=== PATIENT | female | born 1965 | race African-American/Black ===

== ENCOUNTER 2017-07-19 11:24 | Inpatient (IN) | payer OTHER ==
[2017-07-19 11:49] VITALS: BMI 22.8
--- NOTE | 2017-07-19 14:09 | HP ---
COWS - Scale Resting Pulse: 0= [place] 80 or Below Sweatin= Chills/Flushing Restless Observation: 1= Difficult to Sit Still Pupil Size: 1= Pupils >than Normal Bone or Joint Aches: 2= Severe Diffuse Aches Runny Nose/ Eye Tearin= Nasal Congestion GI Upset > 30mins: 1= Stomach Cramp Tremor Observation: 1= Tremor [place], Not Seen Yawning Observation: 1= 1-2x During Session Anxiety or Irritability: 2=Irritable/Anxious Goose Flesh Skin: 0=Smooth Skin COWS Score: 11 CIWA Score - CIWA Score Nausea/Vomitin-Mild Nausea/No Vomiting Muscle Tremors: 1-None Visible, but [place] Anxiety: 3 Agitation: 1-Slight > Activity Paroxysmal Sweats: 1-Minimal Palms Moist Orientation: 0-Oriented Tacttile Disturbances: 2-Mild Itch/Numbness/Burn Auditory Disturbances: 1-Very Mild Visual Disturbances: 0-None Headache: 2-Mild CIWA-Ar Total Score: 12 Admission [facility] Chief Complaint: ETOH/Heroin Withdrawal symptoms. Allergies/Adverse Reactions: Allergies Allergy/AdvReac Type Severity Reaction Status Date / Time Penicillins Allergy Severe Hives Verified 07/19/17 12:20 History of Present Illness: Patient presents with ETOH/Heroin withdrawal symptoms. Patients started drinking and using heroin at age 16-22. Last drink and use of heroin this morning. Drinks up to 9 cans of beer daily and sniffs 1-2 bags of heroin 4-5 days per week. Denies having seizures from ETOH use/withdrawal. Has history of Depression, Bipolar disorder, asthma, internal defibrillator, HTN and angina. Denies SI/HI and suicide attempts. Patient states last detox attempt was one month ago at [facility]. ISTOP checked. Reference number [id number]. Exam Limitations: No Limitations - Ebola screening Have you traveled outside of the country in the last 21 days: No (N) Have you had contact with anyone from an Ebola affected area: No Have you been sick,other than usual withdrawal symptoms: No Do you have a fever: No - Review of Systems Constitutional: Chills, Night Sweats, Changes in sleep, Unexplained wgt Loss EENT: reports: Nose Congestion Respiratory: reports: No Symptoms reported Cardiac: reports: No Symptoms Reported GI: reports: Diarrhea, Nausea, Poor Fluid Intake, Abdominal cramping : reports: No Symptoms Reported Musculoskeletal: reports: Back Pain, Muscle Pain Integumentary: reports: Sweating Neuro: reports: Headache, Tremors Endocrine: reports: Unexplained Weight Loss Hematology: reports: Anemia Psychiatric: reports: Orientated x3, Anxious, Depressed Patient History - Patient Medical History Hx Anemia: Yes (WAS ON FESOL IN THE PAST) Hx Asthma: Yes Hx Chronic Obstructive Pulmonary Disease (COPD): No Hx Cancer: No Hx Cardiac Disorders: Yes (h/o heart attack in 2009) Hx Congestive Heart Failure: Yes Hx Hypertension: Yes Hx Hypercholesterolemia: No Hx Pacemaker: Yes (ICD in jostin 2009,2013) HX Cerebrovascular Accident: No Hx Seizures: No Hx Dementia: No Hx Diabetes: No Hx Gastrointestinal Disorders: No Hx Liver Disease: No Hx Genitourinary Disorders: No Hx Sexually Transmitted Disorders: No Hx Renal Disease (ESRD): No Hx Thyroid Disease: No Hx Human Immunodeficiency Virus (HIV): No Hx Hepatitis C: No Hx Depression: Yes Hx Suicide Attempt: No Hx Bipolar Disorder: Yes (DEPAKOTE/RISPERDAL) Hx Schizophrenia: No - Patient Surgical History Past Surgical History: Yes Hx Neurologic Surgery: No Hx Cataract Extraction: No Hx Cardiac Surgery: Yes (ICD 2009 and 2013) Hx Lung Surgery: No Hx Breast Surgery: No Hx Breast Biopsy: No Hx Abdominal Surgery: No Hx Appendectomy: No Hx Cholecystectomy: No Hx Genitourinary Surgery: No Hx Section: Yes (X 1 1991) Hx Orthopedic Surgery: No Anesthesia Reaction: No - PPD History Previous Implant?: Yes Documented Results: Negative w/proof Date: 12/28/14 Results: 0 mm PPD to be Administered?: Yes - Reproductive History Last Menstrual Period: 04/13/15 Patient : No - Smoking Cessation Smoking history: Current every day smoker Have you smoked in the past 12 months: Yes Aproximately how many cigarettes per day: 8 Cigars Per Day: 0 Hx Chewing Tobacco Use: No Initiated information on smoking cessation: Yes 'Breaking Loose' booklet given: 07/19/17 - Substance & Tx. History Hx Alcohol Use: Yes Hx Substance Use: Yes Substance Use Type: Alcohol, Heroin Hx Substance Use Treatment: Yes - Substances Abused Heroin Route: Inhalation Frequency: 3-6 times per week Amount used: 1-2 BAGS WHEN USED Age of first use: 18 Date of Last Use: 07/18/17 Alcohol Route: Oral Frequency: 3-6 times per week Amount used: 9 CANS OF BEER, 1 PINT OF VODKA Age of first use: 21 Date of Last Use: 07/19/17 Family Disease History - Family Disease History Family Disease History: Heart Disease: Father (ASTHMA, OF HEART DISEASE), Respiratory: Father, Other: Brother (ALCOHOLIC) Admission Physical Exam [facility] - Vital Signs Vital Signs: Vital Signs - 24 hr 07/19/17 11:45 Temperature 96.8 F L Pulse Rate 55 L Respiratory 16 Rate Blood Pressure 165/100 - Physical General Appearance: Yes: Disheveled, Tremorous, Sweating, Anxious HEENTM: Yes: EOMI, Hearing grossly Normal, Normal Voice, HODA, Pharynx Normal, Nasal Congestion Respiratory: Yes: Within Normal Limits, Chest Non-Tender, Lungs Clear, Normal Breath Sounds, No Respiratory Distress, No Accessory Muscle Use Neck: Yes: Within Normal Limits, No masses,lesions,Nodules, Supple Breast: Yes: Breast Exam Deferred Cardiology: Yes: Regular Rhythm, Regular Rate, S1, S2 Abdominal: Yes: Normal Bowel Sounds, Non Tender, Flat, Soft Genitourinary: Yes: Within Normal Limits Back: Yes: Normal Inspection, Muscle Spasm Musculoskeletal: Yes: full range of Motion, Gait Steady, Back pain, Muscle Pain Extremities: Yes: Normal Inspection, Normal Range of Motion, Tremors Neurological: Yes: field research associate II-XII NML intact, Fully Oriented, Alert, Motor Strength 5/5, Normal Response, Depressed Affect Integumentary: Yes: Normal Color, Dry (dry skin on feet), Warm, Moist Cleared for Admission [facility] - Detox or Rehab [facility] Level of Care: Medically Managed Detox Regimen/Protocol: Methadone/Librium [facility] Breath Alcohol Content Breath Alcohol Content: 0 Urine Pregancy Test - Result Urine Test Results: Negative- NO Line Present Urine Drug Screen - Results Drug Screen Negative: Yes Urine Drug Screen Results: BZO-Benzodiazepines
[2017-07-19] MEDS ORDERED: hydrOXYzine PAMOATE 50 MG CAPSULE (FP) PO PRN (14:20)
[2017-07-19] MEDS ORDERED: guaiFENesin/D-METHORPHAN HB 10 ML UNIT-DOSE CUPS PO PRN (14:20)
[2017-07-19] MEDS ORDERED: MENTHOL/PHENOL 1 EACH UD MM PRN (14:20)
[2017-07-19] MEDS ORDERED: LOPERAMIDE HCL 2 MG CAPSULE PO PRN (14:20)
[2017-07-19] MEDS ORDERED: ACETAMINOPHEN 325 MG TABLET (FP) PO PRN (14:20)
[2017-07-19] MEDS ORDERED: P-EPHED 60MG/TRIPROLIDI 2.5MG TABLET PO PRN (14:20)
[2017-07-19] MEDS ORDERED: IBUPROFEN 400 MG TABLET (FP) PO PRN (14:20)
[2017-07-19] MEDS ORDERED: MAGNESIUM CITRATE 300 ML BOTTLE PO PRN (14:20)
[2017-07-19] MEDS ORDERED: MAG HYDROX/AL HYDROX/SIMETH 30 ML UNIT-DOSE CUP PO PRN (14:20)
[2017-07-19] MEDS ORDERED: MAGNESIUM HYDROX 2400MG/30ML ORAL SUSPENSION 30 ML CUP PO PRN (14:20)
[2017-07-19] MEDS ORDERED: NITROGLYCERIN SUBLINGUAL 1/150 0.4 MG TAB SL PRN (14:22)
[2017-07-19] MEDS ORDERED: chlordiazePOXIDE HCL 25 MG CAPSULE PO PRN (14:24)
[2017-07-19] MEDS ORDERED: ALBUTEROL SO4 18 GM HFA INHALER IH PRN (14:25)
[2017-07-19] MEDS ORDERED: chlordiazePOXIDE HCL 25 MG CAPSULE PO ONE (15:30)
[2017-07-19] MEDS ORDERED: METHADONE HCL 10 MG TABLET (FOR DETOX USE ONLY) PO ONE ×2 (15:35→23:00)
[2017-07-19] MEDS: chlordiazePOXIDE HCL 25 MG CAPSULE PO SCH ×2 (17:30→22:20)
[2017-07-19] MEDS ORDERED: cloNIDine HCL 0.1 MG TABLET PO ONE (17:57)
[2017-07-19] MEDS ORDERED: MELATONIN 5 MG TABLETS PO PRN (22:00)
[2017-07-19] MEDS: THIAMINE HCL 100 MG TABLET (FP) PO SCH (22:20)
[2017-07-20] MEDS: chlordiazePOXIDE HCL 25 MG CAPSULE PO SCH ×4 (05:48→22:47)
[2017-07-20] MEDS: NICOTINE POLACRILEX 2 MG GUM BC PRN ×3 (06:17→17:25)
[2017-07-20] MEDS ORDERED: METHADONE HCL 10 MG TABLET (FOR DETOX USE ONLY) PO SCH (10:00)
[2017-07-20] MEDS: PRENATAL VITAMINS W/ FOLIC ACID TABLET (FP) PO SCH (10:17)
[2017-07-20] MEDS: HYDROCHLOROTHIAZIDE 25 MG TABLET (FP) PO SCH (10:17)
[2017-07-20] MEDS: LISINOPRIL 5 MG TABLET (FP) PO SCH (10:17)
[2017-07-20] MEDS: amLODIPine BESYLATE 2.5 MG TABLET (FP) PO SCH (10:17)
[2017-07-20] MEDS: NICOTINE 21 MG/24 HOURS TOPICAL PATCH TD SCH (10:20)
[2017-07-20 10:40] LABS: HEMATOCRIT 33.3 % (32.4-45.2); HEMOGLOBIN 11.1 GM/dL (10.7-15.3); MCH 32.4 pg (25.7-33.7); MCHC 33.3 g/dl (32.0-36.0); MEAN CELL VOLUME 97.3 fl (80-96); MEAN PLT VOLUME 9.4 fl (7.5-11.1); PLATELET COUNT 155 K/MM3 (134-434); RBC 3.42 M/mm3 (3.60-5.2); WHITE BLOOD COUNT 4.4 K/mm3 (4.0-10.0)
[2017-07-20 10:44] LABS: URINE APPEARANCE CLEAR; URINE BILIRUBIN NEGATIVE (<2.0 mg/dL); URINE COLOR STRAW; URINE GLUCOSE (UA) NEGATIVE (NEGATIVE); URINE KETONE NEGATIVE (NEGATIVE); URINE LEUK ESTERASE NEGATIVE (NEGATIVE); URINE NITRITE NEGATIVE (NEGATIVE); URINE PROTEIN NEGATIVE (NEGATIVE); URINE UROBILINOGEN NEGATIVE mg/dL (0.2-1.0)
[2017-07-20 10:55] LABS: ALBUMIN 3.4 g/dl (3.4-5.0); CHLORIDE 110 mmol/L (98-107); POTASSIUM 4.3 mmol/L (3.5-5.1); SODIUM 143 mmol/L (136-145)
[2017-07-20 11:23] LABS: ALK PHOS 117 U/L (45-117); ANION GAP 9 (8-16); BILIRUBIN,TOTAL 0.5 mg/dL (0.2-1.0); BLOOD UREA NITROGEN 35 mg/dL (7-18); CALCIUM 8.9 mg/dL (8.5-10.1); CO2 24 mmol/L (21-32); CREATININE 1.3 mg/dL (0.55-1.02); GLUCOSE,RANDOM 85 mg/dL (74-106); SGOT/AST 33 U/L (15-37); SGPT/ALT 33 U/L (12-78); TOT PROT 6.7 g/dl (6.4-8.2)
--- NOTE | 2017-07-20 15:20 | CONSULT ---
[facility] Psychiatric Consult - Data Date of interview: 07/20/17 Admission source: [facility] Identifying data: Readmission to [facility] for this 51 y/o AA female seeking detox treatment on for alcohol and opioid dependence.Patient is single, a mother of five,homeless,unemployed and supported on SSI benefits. Substance Abuse History: Discussed with patient.Ms Pedraza confirmed continuous use of heroin,alcohol and occasional exposure to crack/cocaine.Details in current [facility] report : Smoking history: Current every day smoker. Have you smoked in the past 12 months: Yes. Aproximately how many cigarettes per day: 8. Cigars Per Day: 0. Hx Chewing Tobacco Use: No. Initiated information on smoking cessation: Yes. 'Breaking Loose' booklet given: 07/19/17. - Substance & Tx. History. Hx Alcohol Use: Yes. Hx Substance Use: Yes. Substance Use Type : Alcohol, Heroin. Hx Substance Use Treatment: Yes. - Substances Abused. Heroin. Route: Inhalation. Frequency: 3-6 times per week. Amount used: 1-2 BAGS WHEN USED. Age of first use: 18. Date of Last Use: 07/18/17. Alcohol. Route: Oral. Frequency: 3-6 times per week. Amount used: 9 CANS OF BEER, 1 PINT OF VODKA. Age of first use: 21. Date of Last Use: 07/19/17 Medical History: Significant for a history of myocardial infarction (pacemaker in place),coronary artery disease,angina,hypertension,anemia,bronchial asthma, congestive heart failure and one section. Psychiatric History: History of multiple psychiatric hospitalizations ([facility]) since 1999.Patient reports the diagnosis of Schizophrenia (revised for Bipolar Disorder).Prescribed depakote 250 mg bid + risperdal 1 mg/hs (since 2008 during incarceration).Ms Pedraza amits to chronic non-adherence to psychiatric OPD care + psychotropic medications.NOT taken for " a little over one month " , according to patient's own account.No history of suicide attempts. Physical/Sexual Abuse/Trauma History: Patient denies. Additional Comment: Urine Drug Screen Results: BZO-Benzodiazepines.Noted. Mental Status Exam - Mental Status Exam Alert and Oriented to: Time, Place, Person Cognitive Function: Good Patient Appearance: Well Groomed Mood: Nervous, Withdrawn, Hopeful Affect: Mood Congruent Patient Behavior: Fatigued, Appropriate, Cooperative Speech Pattern: Clear, Appropriate Voice Loudness: Normal Thought Process: Goal Oriented Thought Disorder: Not Present Hallucinations: Denies Suicidal Ideation: Denies Homicidal Ideation: Denies Insight/Judgement: Poor Sleep: Well Appetite: Good Muscle strength/Tone: Normal Gait/Station: Normal Psychiatric Findings - Problem List ([place] 1, 2,3) (1) Alcohol dependence with uncomplicated withdrawal Current Visit: Yes Status: Acute (2) Opioid dependence with withdrawal Current Visit: Yes Status: Acute (3) Nicotine dependence Current Visit: Yes Status: Chronic Qualifiers: Nicotine product type: cigarettes (4) Substance induced mood disorder Current Visit: Yes Status: Acute (5) Schizoaffective disorder Current Visit: Yes Status: Chronic - Initial Treatment Plan Initial Treatment Plan: Psychoeducation.Detoxification in progress.Patient is receptive to teaching : she agrees to resume depakote at the dose of 250 mg po bid + risperdal 1 mg po hs.Ordered.Side effects/benefits of both drugs are discussed with the patient.Ms Pedraza is made aware of the risk of liver dysfunction,hair loss,blood dyscrasias,polycystic ovary syndrome,sedation, dystonias,akathisia,dyskinesias,neuroleptic malignant syndrome and cardiovascular adverse events.Patient endorses a history of good tolerability to these medications + favorable therapeutic response in the past.Consent ( verbal) given.Observation.Labs are revisited : normal LFTS.Valproic acid level : pending.Will follow.
--- NOTE | 2017-07-20 20:58 | PN ---
[facility] CIWA - CIWA Score Nausea/Vomitin Muscle Tremors: 3 Anxiety: 2 Agitation: 3 Paroxysmal Sweats: 3 Orientation: 0-Oriented Tacttile Disturbances: 0-None Auditory Disturbances: 0-None Visual Disturbances: 0-None Headache: 0-None Present CIWA-Ar Total Score: 14 [facility] COWS - Scale Resting Pulse: 0= [place] 80 or Below Sweatin=Flushed/Facial Moisture Restless Observation: 1= Difficult to Sit Still Pupil Size: 0= Normal to Room Light Bone or Joint Aches: 0= None Runny Nose/ Eye Tearin= Nasal Congestion GI Upset > 30mins: 0= None Tremor Observation of Outstretched Hands: 2= Slight Tremor Visible Yawning Observation: 0= None Anxiety or Irritability: 2=Irritable/Anxious Goose Flesh Skin: 0=Smooth Skin COWS Score: 8 [facility] Progress Note (SOAP) Subjective: Sleep disturbance Shakes sweats Objective: 07/20/17 20:55 A & O x 3, anxious Ambulating steadily on unit Denies chest pains/palpitations nor discomfort Laboratory Last Values WBC 4.4 K/mm3 (4.0-10.0) 07/20/17 07:50 RBC 3.42 M/mm3 (3.60-5.2) L 07/20/17 07:50 Hgb 11.1 GM/dL (10.7-15.3) 07/20/17 07:50 Hct 33.3 % (32.4-45.2) 07/20/17 07:50 MCV 97.3 fl (80-96) H 07/20/17 07:50 MCH 32.4 pg (25.7-33.7) 07/20/17 07:50 MCHC 33.3 g/dl (32.0-36.0) 07/20/17 07:50 RDW 14.0 % (11.6-15.6) 07/20/17 07:50 Plt Count 155 K/MM3 (134-434) D 07/20/17 07:50 MPV 9.4 fl (7.5-11.1) 07/20/17 07:50 Sodium 143 mmol/L (136-145) 07/20/17 07:50 Potassium 4.3 mmol/L (3.5-5.1) 07/20/17 07:50 Chloride 110 mmol/L (98-107) H 07/20/17 07:50 Carbon Dioxide 24 mmol/L (21-32) 07/20/17 07:50 Anion Gap 9 (8-16) 07/20/17 07:50 BUN 35 mg/dL (7-18) H 07/20/17 07:50 Creatinine 1.3 mg/dL (0.55-1.02) H 07/20/17 07:50 Creat Clearance w eGFR 43.54 (>60) 07/20/17 07:50 Random Glucose 85 mg/dL (74-106) 07/20/17 07:50 Calcium 8.9 mg/dL (8.5-10.1) 07/20/17 07:50 Total Bilirubin 0.5 mg/dL (0.2-1.0) D 07/20/17 07:50 AST 33 U/L (15-37) 07/20/17 07:50 ALT 33 U/L (12-78) 07/20/17 07:50 Alkaline Phosphatase 117 U/L (45-117) 07/20/17 07:50 Total Protein 6.7 g/dl (6.4-8.2) 07/20/17 07:50 Albumin 3.4 g/dl (3.4-5.0) 07/20/17 07:50 Urine Color Straw 07/20/17 07:50 Urine Appearance Clear 07/20/17 07:50 Urine pH 6.0 (5.0-8.0) 07/20/17 07:50 Ur Specific [place] 1.013 (1.001-1.035) 07/20/17 07:50 Urine Protein Negative (NEGATIVE) 07/20/17 07:50 Urine Glucose (UA) Negative (NEGATIVE) 07/20/17 07:50 Urine Ketones Negative (NEGATIVE) 07/20/17 07:50 Urine Blood Negative (NEGATIVE) 07/20/17 07:50 Urine Nitrite Negative (NEGATIVE) 07/20/17 07:50 Urine Bilirubin Negative (<2.0 mg/dL) 07/20/17 07:50 Urine Urobilinogen Negative mg/dL (0.2-1.0) 07/20/17 07:50 Ur Leukocyte Esterase Negative (NEGATIVE) 07/20/17 07:50 RPR Titer Nonreactive (NONREACTIVE) 07/20/17 07:50 HIV 1&2 Antibody Screen Negative 07/20/17 07:50 HIV P24 Antigen Negative 07/20/17 07:50 labs noted Assessment: 07/20/17 20:57 Withdrawal sx Plan: continue detox
[2017-07-20] MEDS: THIAMINE HCL 100 MG TABLET (FP) PO SCH (22:47)
[2017-07-20] MEDS: DIVALPROEX SODIUM 250 MG TABLET E.C. PO SCH (22:48)
[2017-07-20] MEDS: risperiDONE 1 MG TABLET (FP) PO SCH (22:48)
[2017-07-21] MEDS: chlordiazePOXIDE HCL 25 MG CAPSULE PO SCH ×2 (05:53→10:35)
[2017-07-21] MEDS: NICOTINE POLACRILEX 2 MG GUM BC PRN ×3 (06:18→16:34)
[2017-07-21] MEDS: HYDROCHLOROTHIAZIDE 25 MG TABLET (FP) PO SCH (10:34)
[2017-07-21] MEDS: DIVALPROEX SODIUM 250 MG TABLET E.C. PO SCH ×2 (10:34→22:28)
[2017-07-21] MEDS: METHADONE HCL 5 MG TABLET (FOR DETOX USE ONLY) PO SCH (10:34)
[2017-07-21] MEDS: PRENATAL VITAMINS W/ FOLIC ACID TABLET (FP) PO SCH (10:35)
[2017-07-21] MEDS: LISINOPRIL 5 MG TABLET (FP) PO SCH (10:35)
[2017-07-21] MEDS: amLODIPine BESYLATE 2.5 MG TABLET (FP) PO SCH (10:35)
[2017-07-21] MEDS: ASPIRIN COATED 81 MG TABLET.EC PO SCH (10:35)
[2017-07-21] MEDS: NICOTINE 21 MG/24 HOURS TOPICAL PATCH TD SCH (10:35)
--- NOTE | 2017-07-21 12:19 | PN ---
[facility] CIWA - CIWA Score Nausea/Vomitin-No Nausea/No Vomiting Muscle Tremors: 3 Anxiety: 3 Agitation: 3 Paroxysmal Sweats: 2 Orientation: 0-Oriented Tacttile Disturbances: 0-None Auditory Disturbances: 0-None Visual Disturbances: 0-None Headache: 0-None Present CIWA-Ar Total Score: 11 S COWS - Scale Resting Pulse: 0= [place] 80 or Below Sweatin= Chills/Flushing Restless Observation: 0= Sits Still Pupil Size: 0= Normal to Room Light Bone or Joint Aches: 1= Mild Discomfort Runny Nose/ Eye Tearin= Nasal Congestion GI Upset > 30mins: 0= None Tremor Observation of Outstretched Hands: 2= Slight Tremor Visible Yawning Observation: 2= >3x During Session Anxiety or Irritability: 1=Feels Anxious/Irritable Goose Flesh Skin: 0=Smooth Skin COWS Score: 8 S Progress Note (SOAP) Subjective: tired sweats body aches interrupted sleep Objective: 07/21/17 12:19 Vital Signs Temperature 98.2 F 07/21/17 10:25 Pulse Rate 78 07/21/17 10:25 Respiratory Rate 18 07/21/17 10:25 Blood Pressure 132/89 07/21/17 10:25 O2 Sat by Pulse Oximetry (%) Laboratory Tests 07/20/17 07/20/17 07/20/17 07:50 07:50 07:50 WBC 4.4 RBC 3.42 L Hgb 11.1 Hct 33.3 MCV 97.3 H MCH 32.4 MCHC 33.3 RDW 14.0 Plt Count 155 D MPV 9.4 Sodium 143 Potassium 4.3 Chloride 110 H Carbon Dioxide 24 Anion Gap 9 BUN 35 H Creatinine 1.3 H Creat Clearance w eGFR 43.54 Random Glucose 85 Calcium 8.9 Total Bilirubin 0.5 D AST 33 ALT 33 Alkaline Phosphatase 117 Total Protein 6.7 Albumin 3.4 Urine Color Urine Appearance Urine pH Ur Specific [place] Urine Protein Urine Glucose (UA) Urine Ketones Urine Blood Urine Nitrite Urine Bilirubin Urine Urobilinogen Ur Leukocyte Esterase RPR Titer HIV 1&2 Antibody Screen Negative HIV P24 Antigen Negative 07/20/17 07/20/17 07:50 07:50 WBC RBC Hgb Hct MCV MCH MCHC RDW Plt Count MPV Sodium Potassium Chloride Carbon Dioxide Anion Gap BUN Creatinine Creat Clearance w eGFR Random Glucose Calcium Total Bilirubin AST ALT Alkaline Phosphatase Total Protein Albumin Urine Color Straw Urine Appearance Clear Urine pH 6.0 Ur Specific [place] 1.013 Urine Protein Negative Urine Glucose (UA) Negative Urine Ketones Negative Urine Blood Negative Urine Nitrite Negative Urine Bilirubin Negative Urine Urobilinogen Negative Ur Leukocyte Esterase Negative RPR Titer Nonreactive HIV 1&2 Antibody Screen HIV P24 Antigen aaox3 ambulating no acute distress Assessment: 07/21/17 12:19 withdrawal sx Plan: continue detox increase fluids
[2017-07-21] MEDS: chlordiazePOXIDE 5 MG CAPSULE PO SCH ×2 (16:34→22:27)
[2017-07-21] MEDS: risperiDONE 1 MG TABLET (FP) PO SCH (22:27)
[2017-07-21] MEDS: THIAMINE HCL 100 MG TABLET (FP) PO SCH (22:28)
[2017-07-22] MEDS: chlordiazePOXIDE 5 MG CAPSULE PO SCH ×2 (05:46→10:38)
[2017-07-22] MEDS: DIVALPROEX SODIUM 250 MG TABLET E.C. PO SCH ×2 (10:37→22:28)
[2017-07-22] MEDS: HYDROCHLOROTHIAZIDE 25 MG TABLET (FP) PO SCH (10:37)
[2017-07-22] MEDS: ASPIRIN COATED 81 MG TABLET.EC PO SCH (10:37)
[2017-07-22] MEDS: PRENATAL VITAMINS W/ FOLIC ACID TABLET (FP) PO SCH (10:37)
[2017-07-22] MEDS: LISINOPRIL 5 MG TABLET (FP) PO SCH (10:37)
[2017-07-22] MEDS: METHADONE HCL 5 MG TABLET (FOR DETOX USE ONLY) PO SCH (10:38)
[2017-07-22] MEDS: NICOTINE 21 MG/24 HOURS TOPICAL PATCH TD SCH (10:40)
[2017-07-22] MEDS: NICOTINE POLACRILEX 2 MG GUM BC PRN (10:40)
--- NOTE | 2017-07-22 11:39 | PN ---
S Progress Note (SOAP) Subjective: joint pain body ache sweat tremor slept better at night patient stated that she had kidney problem "for a while" has hypertension x 3 years primary care physician at [place] last visit "months" ago Objective: 07/22/17 11:37 Vital Signs Temperature 97.7 F 07/22/17 09:43 Pulse Rate 79 07/22/17 09:43 Respiratory Rate 18 07/22/17 09:43 Blood Pressure 153/95 07/22/17 09:43 O2 Sat by Pulse Oximetry (%) Laboratory Last Values WBC 4.4 K/mm3 (4.0-10.0) 07/20/17 07:50 RBC 3.42 M/mm3 (3.60-5.2) L 07/20/17 07:50 Hgb 11.1 GM/dL (10.7-15.3) 07/20/17 07:50 Hct 33.3 % (32.4-45.2) 07/20/17 07:50 MCV 97.3 fl (80-96) H 07/20/17 07:50 MCH 32.4 pg (25.7-33.7) 07/20/17 07:50 MCHC 33.3 g/dl (32.0-36.0) 07/20/17 07:50 RDW 14.0 % (11.6-15.6) 07/20/17 07:50 Plt Count 155 K/MM3 (134-434) D 07/20/17 07:50 MPV 9.4 fl (7.5-11.1) 07/20/17 07:50 Sodium 143 mmol/L (136-145) 07/20/17 07:50 Potassium 4.3 mmol/L (3.5-5.1) 07/20/17 07:50 Chloride 110 mmol/L (98-107) H 07/20/17 07:50 Carbon Dioxide 24 mmol/L (21-32) 07/20/17 07:50 Anion Gap 9 (8-16) 07/20/17 07:50 BUN 35 mg/dL (7-18) H 07/20/17 07:50 Creatinine 1.3 mg/dL (0.55-1.02) H 07/20/17 07:50 Creat Clearance w eGFR 43.54 (>60) 07/20/17 07:50 Random Glucose 85 mg/dL (74-106) 07/20/17 07:50 Calcium 8.9 mg/dL (8.5-10.1) 07/20/17 07:50 Total Bilirubin 0.5 mg/dL (0.2-1.0) D 07/20/17 07:50 AST 33 U/L (15-37) 07/20/17 07:50 ALT 33 U/L (12-78) 07/20/17 07:50 Alkaline Phosphatase 117 U/L (45-117) 07/20/17 07:50 Total Protein 6.7 g/dl (6.4-8.2) 07/20/17 07:50 Albumin 3.4 g/dl (3.4-5.0) 07/20/17 07:50 Urine Color Straw 07/20/17 07:50 Urine Appearance Clear 07/20/17 07:50 Urine pH 6.0 (5.0-8.0) 07/20/17 07:50 Ur Specific [place] 1.013 (1.001-1.035) 07/20/17 07:50 Urine Protein Negative (NEGATIVE) 07/20/17 07:50 Urine Glucose (UA) Negative (NEGATIVE) 07/20/17 07:50 Urine Ketones Negative (NEGATIVE) 07/20/17 07:50 Urine Blood Negative (NEGATIVE) 07/20/17 07:50 Urine Nitrite Negative (NEGATIVE) 07/20/17 07:50 Urine Bilirubin Negative (<2.0 mg/dL) 07/20/17 07:50 Urine Urobilinogen Negative mg/dL (0.2-1.0) 07/20/17 07:50 Ur Leukocyte Esterase Negative (NEGATIVE) 07/20/17 07:50 RPR Titer Nonreactive (NONREACTIVE) 07/20/17 07:50 HIV 1&2 Antibody Screen Negative 07/20/17 07:50 HIV P24 Antigen Negative 07/20/17 07:50 lab noted gfr 43 07/22/17 11:54 renal insufficient Assessment: 07/22/17 11:38 withdrawal sx 07/22/17 11:54 renal insufficient Plan: continue detox strong recommend that the patient reengage with primary care physician and nephrology
[2017-07-22] MEDS: amLODIPine BESYLATE 2.5 MG TABLET (FP) PO SCH (12:04)
[2017-07-22] MEDS ORDERED: amLODIPine BESYLATE 5 MG TABLET (FP) PO SCH (12:11)
[2017-07-22] MEDS ORDERED: amLODIPine BESYLATE 5 MG TABLET (FP) PO ONE (13:45)
[2017-07-22] MEDS: chlordiazePOXIDE HCL 10 MG CAPSULE PO SCH ×2 (17:20→22:28)
[2017-07-22] MEDS: THIAMINE HCL 100 MG TABLET (FP) PO SCH (22:28)
[2017-07-22] MEDS: risperiDONE 1 MG TABLET (FP) PO SCH (22:28)
--- NOTE | 2017-07-23 00:52 | EKG ---
Test Reason : Blood Pressure : / mmHG Vent. Rate : 059 BPM Atrial Rate : 059 BPM P-R Int : 154 ms QRS Dur : 086 ms QT Int : 442 ms P-R-T Axes : 062 043 239 degrees QTc Int : 437 ms SINUS BRADYCARDIA MODERATE VOLTAGE CRITERIA FOR LVH, MAY BE NORMAL VARIANT ANTEROSEPTAL INFARCT , AGE UNDETERMINED T WAVE ABNORMALITY, CONSIDER LATERAL ISCHEMIA ABNORMAL ECG NO PREVIOUS ECGS AVAILABLE Confirmed by LIANA CEBALLOS, THOM ([id number]) on 07/23/2017 12:52:25 AM Referred By: Confirmed By:THOM GAINES MD
[2017-07-23] MEDS: chlordiazePOXIDE HCL 10 MG CAPSULE PO SCH ×2 (06:28→10:22)
[2017-07-23] MEDS ORDERED: cloNIDine HCL 0.1 MG TABLET PO ONE (07:39)
--- NOTE | 2017-07-23 07:41 | PN ---
[facility] Progress Note Note: bp 159/107,withdrawal symptom,clonidine 0.1 mg po now
[2017-07-23] MEDS ORDERED: amLODIPine BESYLATE 5 MG TABLET (FP) PO SCH (10:00)
[2017-07-23] MEDS ORDERED: amLODIPine BESYLATE 2.5 MG TABLET (FP) PO SCH (10:00)
[2017-07-23] MEDS ORDERED: METHADONE HCL 10 MG TABLET (FOR DETOX USE ONLY) PO SCH (10:00)
[2017-07-23] MEDS: HYDROCHLOROTHIAZIDE 25 MG TABLET (FP) PO SCH (10:21)
[2017-07-23] MEDS: LISINOPRIL 5 MG TABLET (FP) PO SCH (10:21)
[2017-07-23] MEDS: ASPIRIN COATED 81 MG TABLET.EC PO SCH (10:21)
[2017-07-23] MEDS: PRENATAL VITAMINS W/ FOLIC ACID TABLET (FP) PO SCH (10:22)
[2017-07-23] MEDS: DIVALPROEX SODIUM 250 MG TABLET E.C. PO SCH ×2 (10:22→22:17)
[2017-07-23] MEDS: NICOTINE 21 MG/24 HOURS TOPICAL PATCH TD SCH (10:25)
--- NOTE | 2017-07-23 11:37 | PN ---
[facility] Progress Note (SOAP) Subjective: less alcohol withdrawal sx disoriented to place and time slow responses to questions Objective: 07/23/17 11:35 Vital Signs Temperature 96.4 F L 07/23/17 09:21 Pulse Rate 77 07/23/17 09:21 Respiratory Rate 18 07/23/17 09:21 Blood Pressure 145/93 07/23/17 09:21 O2 Sat by Pulse Oximetry (%) Laboratory Last Values WBC 4.4 K/mm3 (4.0-10.0) 07/20/17 07:50 RBC 3.42 M/mm3 (3.60-5.2) L 07/20/17 07:50 Hgb 11.1 GM/dL (10.7-15.3) 07/20/17 07:50 Hct 33.3 % (32.4-45.2) 07/20/17 07:50 MCV 97.3 fl (80-96) H 07/20/17 07:50 MCH 32.4 pg (25.7-33.7) 07/20/17 07:50 MCHC 33.3 g/dl (32.0-36.0) 07/20/17 07:50 RDW 14.0 % (11.6-15.6) 07/20/17 07:50 Plt Count 155 K/MM3 (134-434) D 07/20/17 07:50 MPV 9.4 fl (7.5-11.1) 07/20/17 07:50 Sodium 143 mmol/L (136-145) 07/20/17 07:50 Potassium 4.3 mmol/L (3.5-5.1) 07/20/17 07:50 Chloride 110 mmol/L (98-107) H 07/20/17 07:50 Carbon Dioxide 24 mmol/L (21-32) 07/20/17 07:50 Anion Gap 9 (8-16) 07/20/17 07:50 BUN 35 mg/dL (7-18) H 07/20/17 07:50 Creatinine 1.3 mg/dL (0.55-1.02) H 07/20/17 07:50 Creat Clearance w eGFR 43.54 (>60) 07/20/17 07:50 Random Glucose 85 mg/dL (74-106) 07/20/17 07:50 Calcium 8.9 mg/dL (8.5-10.1) 07/20/17 07:50 Total Bilirubin 0.5 mg/dL (0.2-1.0) D 07/20/17 07:50 AST 33 U/L (15-37) 07/20/17 07:50 ALT 33 U/L (12-78) 07/20/17 07:50 Alkaline Phosphatase 117 U/L (45-117) 07/20/17 07:50 Total Protein 6.7 g/dl (6.4-8.2) 07/20/17 07:50 Albumin 3.4 g/dl (3.4-5.0) 07/20/17 07:50 Urine Color Straw 07/20/17 07:50 Urine Appearance Clear 07/20/17 07:50 Urine pH 6.0 (5.0-8.0) 07/20/17 07:50 Ur Specific [place] 1.013 (1.001-1.035) 07/20/17 07:50 Urine Protein Negative (NEGATIVE) 07/20/17 07:50 Urine Glucose (UA) Negative (NEGATIVE) 07/20/17 07:50 Urine Ketones Negative (NEGATIVE) 07/20/17 07:50 Urine Blood Negative (NEGATIVE) 07/20/17 07:50 Urine Nitrite Negative (NEGATIVE) 07/20/17 07:50 Urine Bilirubin Negative (<2.0 mg/dL) 07/20/17 07:50 Urine Urobilinogen Negative mg/dL (0.2-1.0) 07/20/17 07:50 Ur Leukocyte Esterase Negative (NEGATIVE) 07/20/17 07:50 RPR Titer Nonreactive (NONREACTIVE) 07/20/17 07:50 HIV 1&2 Antibody Screen Negative 07/20/17 07:50 HIV P24 Antigen Negative 07/20/17 07:50 lab noted renal insufficient ammonia lever pending Assessment: 07/23/17 11:36 mild alcohol withdrawal sx rule out ammonia induced alter mental staus Plan: medically supervised detox ammonia pending renal insufficient renal diet
[2017-07-23] MEDS ORDERED: LISINOPRIL 5 MG TABLET (FP) PO ONE (12:00)
--- NOTE | 2017-07-23 15:17 | PN ---
[facility] Progress Note Note: AMMONIA LEVEL 51 LACTULOSE QID
[2017-07-23] MEDS: LACTULOSE 20 GM/30 ML UDC (FOR ORAL USE ONLY) PO SCH ×2 (17:32→22:17)
[2017-07-23] MEDS ORDERED: LACTULOSE 20 GM/30 ML UDC (FOR ORAL USE ONLY) PO SCH (18:00)
[2017-07-23] MEDS: NICOTINE POLACRILEX 2 MG GUM BC PRN (18:32)
[2017-07-23] MEDS: THIAMINE HCL 100 MG TABLET (FP) PO SCH (22:17)
[2017-07-23] MEDS: risperiDONE 1 MG TABLET (FP) PO SCH (22:17)
[2017-07-24] MEDS ORDERED: METHADONE HCL 5 MG TABLET (FOR DETOX USE ONLY) PO SCH (06:00)
[2017-07-24 09:20] VITALS: BP 145/95; PULSE 83; TEMP 97.9
[2017-07-24] MEDS ORDERED: LISINOPRIL 10 MG TABLET (FP) PO SCH (10:00)
--- NOTE | 2017-07-24 10:51 | DS ---
[facility] Detox Discharge Summary Admission Date: 07/19/17 Discharge Date: 07/24/17 - History Present History: Alcohol Dependence Additional Comments: 51 years old female admitted 07/19/17 for alcohol withdrawal sx completed alcohol detox regimen tolerate well denies alcohol withdrawal sx patient acknowledged ammonia lever elevation related to alcohol consumption patient agrees to minimize the amount of alcohol drinking and continue lact[facility] as per pharmacist stated patient reported that she is using [facility] lactulose e sent patient agrees to slat pickler the medication lab provided to the patient encourage the patient follow up with community health services provider for renal and liver functioning related health status - Physical Exam Results Vital Signs: Vital Signs Temperature 97.9 F 07/24/17 09:19 Pulse Rate 83 07/24/17 09:19 Respiratory Rate 16 07/24/17 09:19 Blood Pressure 145/95 07/24/17 09:19 O2 Sat by Pulse Oximetry (%) Pertinent Admission Physical Exam Findings: withdrawal sx Vital Signs Temperature 97.9 F 07/24/17 09:19 Pulse Rate 83 07/24/17 09:19 Respiratory Rate 16 07/24/17 09:19 Blood Pressure 145/95 07/24/17 09:19 O2 Sat by Pulse Oximetry (%) Laboratory Last Values WBC 4.4 K/mm3 (4.0-10.0) 07/20/17 07:50 RBC 3.42 M/mm3 (3.60-5.2) L 07/20/17 07:50 Hgb 11.1 GM/dL (10.7-15.3) 07/20/17 07:50 Hct 33.3 % (32.4-45.2) 07/20/17 07:50 MCV 97.3 fl (80-96) H 07/20/17 07:50 MCH 32.4 pg (25.7-33.7) 07/20/17 07:50 MCHC 33.3 g/dl (32.0-36.0) 07/20/17 07:50 RDW 14.0 % (11.6-15.6) 07/20/17 07:50 Plt Count 155 K/MM3 (134-434) D 07/20/17 07:50 MPV 9.4 fl (7.5-11.1) 07/20/17 07:50 Sodium 143 mmol/L (136-145) 07/20/17 07:50 Potassium 4.3 mmol/L (3.5-5.1) 07/20/17 07:50 Chloride 110 mmol/L (98-107) H 07/20/17 07:50 Carbon Dioxide 24 mmol/L (21-32) 07/20/17 07:50 Anion Gap 9 (8-16) 07/20/17 07:50 BUN 35 mg/dL (7-18) H 07/20/17 07:50 Creatinine 1.3 mg/dL (0.55-1.02) H 07/20/17 07:50 Creat Clearance w eGFR 43.54 (>60) 07/20/17 07:50 Random Glucose 85 mg/dL (74-106) 07/20/17 07:50 Calcium 8.9 mg/dL (8.5-10.1) 07/20/17 07:50 Total Bilirubin 0.5 mg/dL (0.2-1.0) D 07/20/17 07:50 AST 33 U/L (15-37) 07/20/17 07:50 ALT 33 U/L (12-78) 07/20/17 07:50 Alkaline Phosphatase 117 U/L (45-117) 07/20/17 07:50 Ammonia 51.12 umol/L (11-32) H 07/23/17 11:15 Total Protein 6.7 g/dl (6.4-8.2) 07/20/17 07:50 Albumin 3.4 g/dl (3.4-5.0) 07/20/17 07:50 Urine Color Straw 07/20/17 07:50 Urine Appearance Clear 07/20/17 07:50 Urine pH 6.0 (5.0-8.0) 07/20/17 07:50 Ur Specific [place] 1.013 (1.001-1.035) 07/20/17 07:50 Urine Protein Negative (NEGATIVE) 07/20/17 07:50 Urine Glucose (UA) Negative (NEGATIVE) 07/20/17 07:50 Urine Ketones Negative (NEGATIVE) 07/20/17 07:50 Urine Blood Negative (NEGATIVE) 07/20/17 07:50 Urine Nitrite Negative (NEGATIVE) 07/20/17 07:50 Urine Bilirubin Negative (<2.0 mg/dL) 07/20/17 07:50 Urine Urobilinogen Negative mg/dL (0.2-1.0) 07/20/17 07:50 Ur Leukocyte Esterase Negative (NEGATIVE) 07/20/17 07:50 RPR Titer Nonreactive (NONREACTIVE) 07/20/17 07:50 HIV 1&2 Antibody Screen Negative 07/20/17 07:50 HIV P24 Antigen Negative 07/20/17 07:50 lab noted patient was aware of renal insufficient x 2 years and fluctuated ammonia level related to alcohol mis used patient completed alcohol detox today and refused to go to [facility] for rehab insists to leave the [facility] today - Treatment Hospital Course: Detox Protocol Followed, Detoxed Safely, Responded well, Discharged Condition Good, Rehab Referral Accepted Patient has Accepted a Rehab Referral to: [facility] - patient refuses to go - Medication Discharge Medications: Ambulatory Orders Risperidone [Risperdal] 1 mg PO HS #30 tablet 03/01/15 Divalproex [Depakote -] 250 mg PO BID 07/19/17 Nitroglycerin Sublingual [Nitrostat -] 0.4 mg SL PRN PRN #30 tab 07/23/17 Risperidone [Risperdal] 1 mg PO HS #30 ml 07/23/17 Lactulose (Oral Use) [Cephulac -] 20 gm PO QID #120 udc 07/24/17 Lactulose (Oral Use) [Cephulac -] 20 gm PO QID #120 udc 07/24/17 - Diagnosis (1) Renal insufficiency Current Visit: Yes Status: Chronic (2) Alcohol dependence with uncomplicated withdrawal Current Visit: Yes Status: Acute (3) Asthma Current Visit: Yes Status: Chronic Qualifiers: Asthma severity: mild Asthma persistence: intermittent Asthma complication type: with status asthmaticus Qualified Code(s): J45.22 - Mild intermittent asthma with status asthmaticus (4) Bipolar II disorder Current Visit: Yes Status: Chronic (5) HTN (hypertension) Current Visit: Yes Status: Chronic Qualifiers: Hypertension type: essential hypertension Qualified Code(s): I10 - Essential (primary) hypertension (6) Nicotine dependence Current Visit: Yes Status: Acute Qualifiers: Nicotine product type: cigarettes Substance use status: in withdrawal Qualified Code(s): F17.213 - Nicotine dependence, cigarettes, with withdrawal - AMA Did Patient Leave Against Medical Advice: No
== END 2017-07-24 10:30 | disposition home or self-care (01) | DRG 773 ==
LOC: YASAS 11:24 → Y6N 15:16
PROVIDERS: ADMIT Surgery; ATTEND Surgery
PROC: HZ2ZZZZ Detoxification Services for Substance Abuse Treatment (ICD-10-PCS; principal; 2017-07-19)
DX: F11.23 Opioid dependence with withdrawal (principal); F10.230 Alcohol dependence with withdrawal, uncomplicated; F17.213 Nicotine dependence, cigarettes, with withdrawal; F31.81 Bipolar II disorder; F25.9 Schizoaffective disorder, unspecified; I10 Essential (primary) hypertension; I25.119 Atherosclerotic heart disease of native coronary artery with unspecified angina pectoris; I25.2 Old myocardial infarction; I50.9 Heart failure, unspecified; D64.9 Anemia, unspecified; J45.22 Mild intermittent asthma with status asthmaticus; N28.9 Disorder of kidney and ureter, unspecified; E72.20 Disorder of urea cycle metabolism, unspecified; R41.82 Altered mental status, unspecified; Z95.810 Presence of automatic (implantable) cardiac defibrillator; Z88.0 Allergy status to penicillin
CPT/HCPCS: 36415; 80053; 80164; 81003; 82140; 85027; 86593; 87389; 93005; 93010; J0735; J2794

== ENCOUNTER 2018-06-27 15:13 | Inpatient (IN) | payer OTHER ==
[2018-06-27 17:19] VITALS: BMI 21.0
--- NOTE | 2018-06-27 23:17 | HP ---
COWS - Scale Resting Pulse: 0= OK 80 or Below Sweatin=Flushed/Facial Moisture Restless Observation: 1= Difficult to Sit Still Pupil Size: 1= Pupils >than Normal Bone or Joint Aches: 4=Acute Joint/Muscle Pain Runny Nose/ Eye Tearin= Runny Nose/Eyes GI Upset > 30mins: 1= Stomach Cramp Tremor Observation: 2= Slight Tremor Visible Yawning Observation: 1= 1-2x During Session Anxiety or Irritability: 2=Irritable/Anxious Goose Flesh Skin: 0=Smooth Skin COWS Score: 16 CIWA Score Nausea/Vomitin-Mild Nausea/No Vomiting Muscle Tremors: 4-Moderate,w/Arms Extend Anxiety: 4-Mod. Anxious/Guarded Agitation: 4-Moderately Restless Paroxysmal Sweats: 1-Minimal Palms Moist Orientation: 1-Uncertain about Date Tacttile Disturbances: 0-None Auditory Disturbances: 0-None Visual Disturbances: 0-None Headache: 2-Mild CIWA-Ar Total Score: 17 - Admission Criteria OASAS Guidelines: Admission for Medically Managed Detox: Requires at least one of the followin. CIWA greater than 12 2. Seizures within the past 24 hours 3. Delirium tremens within the past 24 hours 4. Hallucinations within the past 24 hours 5. Acute intervention needed for co occurring medical disorder 6. Acute intervention needed for co occurring psychiatric disorder 7. Severe withdrawal that cannot be handled at a lower level of care (continued vomiting, continued diarrhea, abnormal vital signs) requiring intravenous medication and/or fluids 8. Admission ROS [facility] Chief Complaint: Heroin and Alcohol withdrawal symptoms Allergies/Adverse Reactions: Allergies Allergy/AdvReac Type Severity Reaction Status Date / Time Penicillins Allergy Severe Hives Verified 06/27/18 17:12 History of Present Illness: 52 years old female with a long history of heroin and alcohol dependence is seeking admission to detox. Patient reports previous detox at [facility] and reports insignificant period of sobriety. She has medical history of Depression, Bipolar disorder, asthma, anemia, CHF, cardiac arrhythmia, cardiac defibrillator in place (AICD), HTN and Angina. She denies suicide attempt and suicidal ideation at this time. Exam Limitations: No Limitations - Ebola screening Have you traveled outside of the country in the last 21 days: No Have you had contact with anyone from an Ebola affected area: No Have you been sick,other than usual withdrawal symptoms: No Do you have a fever: No - Review of Systems Constitutional: Chills, Malaise, Night Sweats, Changes in sleep EENT: reports: No Symptoms Reported Respiratory: reports: No Symptoms reported Cardiac: reports: No Symptoms Reported GI: reports: Diarrhea (x 2), Nausea, Poor Appetite, Poor Fluid Intake, Abdominal cramping : reports: No Symptoms Reported Musculoskeletal: reports: Back Pain, Muscle Pain Integumentary: reports: Dryness, Flushing Neuro: reports: Headache, Tremors Endocrine: reports: No Symptoms Reported Hematology: reports: No Symptoms Reported Psychiatric: reports: Anxious, Depressed Other Systems: Reviewed and Negative Patient History - Patient Medical History Hx Anemia: Yes (Not on medication) Hx Asthma: Yes (Not on medication) Hx Chronic Obstructive Pulmonary Disease (COPD): No Hx Cancer: No Hx Cardiac Disorders: Yes (h/o heart attack in 2009, cardiac arrhythmia) Hx Congestive Heart Failure: Yes (Not on medication) Hx Hypertension: Yes (Metoprolol and Lisinopril) Hx Hypercholesterolemia: No Hx Pacemaker: Yes (ICD in jostin 2009,2013) HX Cerebrovascular Accident: No Hx Seizures: No Hx Dementia: No Hx Diabetes: No Hx Gastrointestinal Disorders: No Hx Liver Disease: No Hx Genitourinary Disorders: No Hx Sexually Transmitted Disorders: No Hx Renal Disease (ESRD): No Hx Thyroid Disease: No Hx Human Immunodeficiency Virus (HIV): No Hx Hepatitis C: No Hx Depression: Yes (Not on medication) Hx Suicide Attempt: No (Denies suicidal ideation at this time) Hx Bipolar Disorder: Yes (DEPAKOTE/RISPERDAL) Hx Schizophrenia: No - Patient Surgical History Past Surgical History: Yes Hx Neurologic Surgery: No Hx Cataract Extraction: No Hx Cardiac Surgery: Yes (ICD 2009 and 2013) Hx Lung Surgery: No Hx Breast Surgery: No Hx Breast Biopsy: No Hx Abdominal Surgery: No Hx Appendectomy: No Hx Cholecystectomy: No Hx Genitourinary Surgery: No Hx Section: Yes (X 1991) Hx Orthopedic Surgery: No Anesthesia Reaction: No - PPD History Previous Implant?: Yes Documented Results: Negative w/proof Implanted On Prior R Admission?: Yes Date: 07/21/17 Results: 0 mm PPD to be Administered?: Yes - Reproductive History Patient is a Female of Child Bearing Age (11 -55 yrs old): No Last Menstrual Period: 04/13/15 LMP comment: MENOPAUSAL - Smoking Cessation Smoking history: Current every day smoker Have you smoked in the past 12 months: Yes Aproximately how many cigarettes per day: 8 Cigars Per Day: 0 Hx Chewing Tobacco Use: No Initiated information on smoking cessation: Yes 'Breaking Loose' booklet given: 06/28/18 - Substance & Tx. History Hx Alcohol Use: Yes Hx Substance Use: Yes Substance Use Type: Alcohol, Cocaine, Heroin, Opiates Hx Substance Use Treatment: Yes ([facility]) - Substances abused Alcohol Substance route: Oral Frequency: Daily Amount used: 10/17OZ CANS BEER Age of first use: 22 Date of last use: 06/27/18 Heroin Amount used: 2 BAGS Age of first use: 22 Date of last use: 06/26/18 Family Disease History - Family Disease History Family Disease History: Heart Disease: Father (ASTHMA, OF HEART DISEASE), Respiratory: Father, Other: Brother (ALCOHOLIC) Admission Physical Exam [facility] - Vital Signs Vital Signs: Vital Signs - 24 hr 06/27/18 17:13 Temperature 97.4 F L Pulse Rate 73 Respiratory 18 Rate Blood Pressure 176/113 H - Physical General Appearance: Yes: Moderate Distress, Tremorous, Sweating, Anxious HEENTM: Yes: EOMI, Normal ENT Inspection, Normal Voice Respiratory: Yes: Lungs Clear, Normal Breath Sounds, No Respiratory Distress Neck: Yes: Supple Breast: Yes: Breast Exam Deferred Cardiology: Yes: Tachycardia Abdominal: Yes: Normal Bowel Sounds Genitourinary: Yes: Within Normal Limits Back: Yes: Normal Inspection Extremities: Yes: Tremors Neurological: Yes: Alert, Normal Mood/Affect Integumentary: Yes: Warm Lymphatic: Yes: Within Normal Limits - Diagnostic (1) Anemia Current Visit: Yes Status: Chronic Qualifiers: Anemia type: unspecified type Qualified Code(s): D64.9 - Anemia, unspecified (2) Angina pectoris Current Visit: Yes Status: Chronic (3) Cardiac arrhythmia Current Visit: Yes Status: Chronic Qualifiers: Arrhythmia type: paroxysmal tachycardia, unspecified Qualified Code(s): I47.9 - Paroxysmal tachycardia, unspecified; I47 - Paroxysmal tachycardia (4) Alcohol dependence with uncomplicated withdrawal Current Visit: Yes Status: Chronic (5) Nicotine dependence Current Visit: Yes Status: Chronic Qualifiers: Nicotine product type: cigarettes Substance use status: in withdrawal Qualified Code(s): F17.213 - Nicotine dependence, cigarettes, with withdrawal (6) Opioid dependence with uncomplicated intoxication Current Visit: Yes Status: Chronic (7) Asthma Current Visit: Yes Status: Chronic Qualifiers: Asthma severity: mild Asthma persistence: intermittent Asthma complication type: with status asthmaticus Qualified Code(s): J45.22 - Mild intermittent asthma with status asthmaticus (8) CAD (coronary artery disease) Current Visit: Yes Status: Chronic Qualifiers: Coronary Disease-Associated Artery/Lesion type: unspecified vessel or lesion type [place] vs. transplanted heart: unspecified whether [place] or transplanted heart Associated angina: with unspecified angina Qualified Code (s): I25.119 - Atherosclerotic heart disease of [place] coronary artery with unspecified angina pectoris (9) CHF (congestive heart failure) Current Visit: Yes Status: Chronic (10) Cocaine dependence Current Visit: Yes Status: Chronic (11) HTN (hypertension) Current Visit: Yes Status: Chronic Qualifiers: Hypertension type: essential hypertension Qualified Code(s): I10 - Essential (primary) hypertension (12) ICD (implantable cardioverter-defibrillator) in place Current Visit: Yes Status: Chronic Cleared for Admission [facility] - Detox or Rehab S Level of Care: Medically Managed Detox Regimen/Protocol: Methadone/Librium Breathalyzer - Breathalyzer Breathalyzer: 0 Urine Drug Screen - Test Device Lot number: [id number] Expiration date: 02/01/20 - Control Is test valid?: Yes - Results Drug screen NEGATIVE: No Urine drug screen results: LIZZETTE-Cocaine, FEN-Fentanyl, MOP-Opiates, BZO- Benzodiazepines Inpatient Rehab Admission - Rehab Decision to Admit Inpatient rehab admission?: No
[2018-06-28] MEDS ORDERED: MENTHOL/PHENOL 1 EACH UD MM PRN (00:35)
[2018-06-28] MEDS ORDERED: MELATONIN 5 MG TABLETS PO PRN (00:35)
[2018-06-28] MEDS ORDERED: ACETAMINOPHEN 325 MG TABLET (FP) PO PRN ×2 (00:35)
[2018-06-28] MEDS ORDERED: MAG HYDROX/AL HYDROX/SIMETH 30 ML UNIT-DOSE CUP PO PRN (00:35)
[2018-06-28] MEDS ORDERED: MAGNESIUM HYDROX 2400MG/30ML ORAL SUSPENSION 30 ML CUP PO PRN (00:35)
[2018-06-28] MEDS ORDERED: MAGNESIUM CITRATE 300 ML BOTTLE PO PRN (00:35)
[2018-06-28] MEDS ORDERED: chlordiazePOXIDE HCL 25 MG CAPSULE PO ONE (00:35)
[2018-06-28] MEDS ORDERED: METHOCARBAMOL 500 MG TABLET PO PRN (00:35)
[2018-06-28] MEDS ORDERED: hydrOXYzine PAMOATE 25 MG CAPSULE (FP) PO PRN (00:35)
[2018-06-28] MEDS ORDERED: IBUPROFEN 400 MG TABLET (FP) PO PRN (00:35)
[2018-06-28] MEDS ORDERED: BISMUTH SUBSALICYLATE 524 MG/30 ML UD PO PRN (00:35)
[2018-06-28] MEDS ORDERED: chlordiazePOXIDE HCL 10 MG CAPSULE PO PRN (00:35)
[2018-06-28] MEDS ORDERED: METHADONE HCL 10 MG TABLET PO ONE (01:54)
[2018-06-28] MEDS: cloNIDine HCL 0.1 MG TABLET PO PRN (02:09)
[2018-06-28] MEDS ORDERED: METHADONE HCL 10 MG TABLET (FOR DETOX USE ONLY) PO ONE ×2 (02:15→23:00)
[2018-06-28] MEDS: chlordiazePOXIDE HCL 25 MG CAPSULE PO SCH ×3 (06:18→22:19)
[2018-06-28] MEDS: NICOTINE POLACRILEX 2 MG GUM BUC PRN ×2 (08:14→22:20)
[2018-06-28] MEDS: LISINOPRIL 5 MG TABLET (FP) PO SCH (10:27)
[2018-06-28] MEDS: metoPROLOL SUCCINATE 25 MG TAB.SR.24H (FP) PO SCH (10:27)
[2018-06-28] MEDS: ASPIRIN 81 MG CHEWABLE TABLETS PO SCH (10:27)
[2018-06-28] MEDS: PRENATAL VITAMINS W/ FOLIC ACID TABLET (FP) PO SCH (10:27)
[2018-06-28] MEDS: NICOTINE 14 MG/24 HOURS TOPICAL PATCH TD SCH (10:31)
--- NOTE | 2018-06-28 13:21 | PN ---
[facility] CIWA - CIWA Score Nausea/Vomitin-No Nausea/No Vomiting Muscle Tremors: 2 Anxiety: 3 Agitation: 0-Normal Activity Paroxysmal Sweats: 3 Orientation: 0-Oriented Tacttile Disturbances: 2-Mild Itch/Numbness/Burn Auditory Disturbances: 0-None Visual Disturbances: 2-Mild Sensitivity Headache: 0-None Present CIWA-Ar Total Score: 12 S COWS - Scale Resting Pulse: 0= NE 80 or Below Sweatin= Chills/Flushing Restless Observation: 0= Sits Still Pupil Size: 0= Normal to Room Light Bone or Joint Aches: 1= Mild Discomfort Runny Nose/ Eye Tearin= None GI Upset > 30mins: 0= None Tremor Observation of Outstretched Hands: 2= Slight Tremor Visible Yawning Observation: 1= 1-2x During Session Anxiety or Irritability: 2=Irritable/Anxious Goose Flesh Skin: 3=Piloerection COWS Score: 10 S Progress Note (SOAP) Subjective: Sweating, Anxious, Body Aches, Tremors. Objective: PATIENT A & O X 3, OBSERVED AMBULATING ON UNIT UNASSISTED. IN NO ACUTE DISTRESS. 06/28/18 13:23 Vital Signs Temperature 97.3 F L 06/28/18 10:36 Pulse Rate 68 06/28/18 10:36 Respiratory Rate 18 06/28/18 10:36 Blood Pressure 137/91 06/28/18 10:36 O2 Sat by Pulse Oximetry (%) ADMISSION LAB RESULTS PENDING. 06/28/18 13:23 Assessment: 06/28/18 13:24 WITHDRAWAL SYMPTOMS. Plan: CONTINUE DETOX. RESULTS OF BOTH ADMISSION AND OF REPEAT ECG'S NOTED. MULTIPLE ABNORMALITIES NOTED ON BOTH REPORTS. PATIENT REPORTS HISTORY OF ABNORMAL ECG RESULTS. PATIENT NOTED SEVERAL CARDIAC ABNORMALITIES ON ADMISSION TO DETOX. PATIENT REPORTS THAT SHE HAD AN APPOINTMENT SCHEDULED WITH A ANIMAL [employer]LTER SUPERVISOR ( [place], [place]) PRIOR TO ADMISSION TO DETOX UNIT, BUT THAT SHE DID NOT ATTEND THE APPOINTMENT WHEN SCHEDULED. PATIENT DENIES CHEST PAIN, LEFT ARM PAIN, AND NECK PAIN. PATIENT REPORTS MILD INTERMITTENT SENSATIONS OF DIZZINESS / FATIGUE (CHRONIC), BUT SHE DENIES SOB AND DYSPNEA. [facility]. NO CARDIOVASCULAR ISSUES THAT NEED TO BE IMMEDIATELY ADDRESSED ARE READILY APPARENT AT THIS TIME, PATIENT ADVISED TO RE-SCHEDULE APPOINTMENT WITH ANIMAL SHELTER SUPERVISOR MENTIONED ABOVE SOON POSSIBLE AFTER DISCHARGE FROM DETOX UNIT FOR FURTHER EVALUATION OF HISTORY OF CARDIOVASCULAR DISEASE AND FOR ABNORMALITIES NOTED ON ADMISSION AND REPEAT ECG'S DURING DETOX ADMISSION. PATIENT ALSO ADVISED TO IMMEDIATELY NOTIFY MEDICAL / NURSING STAFF SHOULD SHE NOTICE ANY UNUSUAL SYMPTOMS, INCLUDING CHEST PAIN, AT ANY TIME. PATIENT VERBALIZED UNDERSTANDING OF ALL RECOMMENDATIONS AND NOTED THAT SHE WOULD SCHEDULE APPOINTMENT WITH ANIMAL SHELTER SUPERVISOR AFTER DISCHARGE FROM DETOX UNIT.
--- NOTE | 2018-06-28 15:18 | EKG ---
Test Reason : Blood Pressure : / mmHG Vent. Rate : 062 BPM Atrial Rate : 062 BPM P-R Int : 148 ms QRS Dur : 092 ms QT Int : 480 ms P-R-T Axes : 066 030 092 degrees QTc Int : 487 ms NORMAL SINUS RHYTHM MODERATE VOLTAGE CRITERIA FOR LVH, MAY BE NORMAL VARIANT CANNOT RULE OUT SEPTAL INFARCT (CITED ON OR BEFORE 19-JUL-2017) ABNORMAL ECG WHEN COMPARED WITH ECG OF 28-JUN-2018 01:19, SINUS RHYTHM HAS REPLACED ECTOPIC ATRIAL RHYTHM Confirmed by SKY LOWERY MD ([id number]) on 06/28/2018 3:18:22 PM Referred By: Confirmed By:SKY LOWERY MD
--- NOTE | 2018-06-28 15:19 | EKG ---
Test Reason : Blood Pressure : / mmHG Vent. Rate : 072 BPM Atrial Rate : 072 BPM P-R Int : 162 ms QRS Dur : 086 ms QT Int : 408 ms P-R-T Axes : 124 032 142 degrees QTc Int : 446 ms SINUS BRADYCARDIA VOLTAGE CRITERIA FOR LEFT VENTRICULAR HYPERTROPHY CANNOT RULE OUT SEPTAL INFARCT (CITED ON OR BEFORE 19-JUL-2017) T WAVE ABNORMALITY, CONSIDER LATERAL ISCHEMIA ABNORMAL ECG WHEN COMPARED WITH ECG OF 19-JUL-2017 15:52, COMPARED TO EKG NO SIGNIFICANT CHANGE IS FOUND Confirmed by SKY LOWERY MD ([id number]) on 06/28/2018 3:19:28 PM Referred By: ELA JOSEPH Confirmed By:SKY LOWERY MD
--- NOTE | 2018-06-28 17:15 | CONSULT ---
[facility] Psychiatric Consult - Data Date of interview: 06/28/18 Admission source: [facility] Identifying data: This is one of multiple admissions to [facility] for this 52 y/ o AA female self-referred for detoxification (heroin, alcohol, cocaine). Examined at [address] [place] [address]. Patient is single, a mother of five, homeless, unemployed and supported on SSI benefits. Substance Abuse History: Confirmed by the patient. Details in current [facility] report as follows : Smoking history: Current every day smoker. Have you smoked in the past 12 months: Yes. Aproximately how many cigarettes per day: 8. Cigars Per Day: 0. Hx Chewing Tobacco Use: No. Initiated information on smoking cessation: Yes. 'Breaking Loose' booklet given: 06/28/18. - Substance & Tx. History. Hx Alcohol Use: Yes. Hx Substance Use: Yes. Substance Use Type : Alcohol, Cocaine, Heroin, Opiates. Hx Substance Use Treatment: Yes ([facility]). - Substances abused. Alcohol. Substance route : Oral. Frequency: Daily. Amount used: 8/16OZ CANS BEER. Age of first use: 22. Date of last use: 06/27/18. Heroin. Amount used: 2 BAGS. Age of first use: 22. Date of last use: 06/26/18 Medical History: Remarkable for a history of myocardial infarction (pacemaker in place) in 2009, coronary artery disease (CHF), angina, hypertension, anemia, bronchial asthma and a section (1991). Psychiatric History: Patient endorses a history of multiple psychiatric hospitalizations ([facility], [facility], [facility], [facility], [facility]) since the onset of emotional disturbances in 1986. Patient reports that she has been initially diagnosed with Schizophrenia (later revised for Bipolar Disorder). Maintenance medications consist of depakote 250 mg bid + risperdal 1 mg/hs (since 2008). Ms Pedraza admits to chronic non-adherence to psychiatric OPD care + psychotropic medications. NOT taken for " close to a year ". Patient indicates that she has not been in contact with a psychiatrist for several months. No affiliation with OPD care settings. No reported history of suicide attempts. Physical/Sexual Abuse/Trauma History: Patient denies. Additional Comment: Urine drug screen results: LIZZETTE-Cocaine, FEN-Fentanyl, MOP- Opiates, BZO-Benzodiazepines. Noted. Mental Status Exam - Mental Status Exam Alert and Oriented to: Time, Place, Person Cognitive Function: Good Patient Appearance: Unkempt, Disheveled Mood: Withdrawn Affect: Appropriate, Mood Congruent, Normal Range Patient Behavior: Fatigued, Appropriate, Cooperative Speech Pattern: Clear, Appropriate Voice Loudness: Normal Thought Process: Goal Oriented Thought Disorder: Not Present Hallucinations: Denies Suicidal Ideation: Denies Homicidal Ideation: Denies Insight/Judgement: Poor Sleep: Well Appetite: Good (as evidenced by empty foodtray seen at bedside) Gait/Station: Other (not observed ; patient did not leave bed) Psychiatric Findings - Problem List ([place] 1, 2,3) (1) Alcohol dependence with uncomplicated withdrawal Current Visit: Yes Status: Acute (2) Opioid dependence with withdrawal Current Visit: Yes Status: Acute (3) Cocaine dependence Current Visit: Yes Status: Chronic (4) Nicotine dependence Current Visit: Yes Status: Chronic Qualifiers: Nicotine product type: cigarettes Substance use status: in withdrawal Qualified Code(s): F17.213 - Nicotine dependence, cigarettes, with withdrawal (5) Substance induced mood disorder Current Visit: Yes Status: Chronic (6) Schizoaffective disorder Current Visit: Yes Status: Chronic Comment: By history. Asymptomatic. Non compliant with medications. (7) Non-compliance Current Visit: Yes Status: Chronic - Initial Treatment Plan Initial Treatment Plan: Psychoeducation. Sleep hygiene. Support. Detoxification in progress. AA/NA meetings. NO clinical justification for risperdal + valproate at this time. Observe clinical course during this detoxification. Rehabilitation recommended to the patient. Ms Pedraza agrees to enroll in rehabilitative care.
[2018-06-28] MEDS: THIAMINE HCL 100 MG TABLET (FP) PO SCH (22:19)
[2018-06-29] MEDS: chlordiazePOXIDE 5 MG CAPSULE PO SCH ×3 (05:33→22:09)
[2018-06-29] MEDS: NICOTINE POLACRILEX 2 MG GUM BUC PRN ×2 (05:35→10:32)
[2018-06-29] MEDS ORDERED: METHADONE HCL 10 MG TABLET (FOR DETOX USE ONLY) PO ONE (10:00)
[2018-06-29] MEDS: NICOTINE 14 MG/24 HOURS TOPICAL PATCH TD SCH (10:28)
[2018-06-29] MEDS: ASPIRIN 81 MG CHEWABLE TABLETS PO SCH (10:28)
[2018-06-29] MEDS: LISINOPRIL 5 MG TABLET (FP) PO SCH (10:28)
[2018-06-29] MEDS: metoPROLOL SUCCINATE 25 MG TAB.SR.24H (FP) PO SCH ×2 (10:28→22:08)
[2018-06-29] MEDS: PRENATAL VITAMINS W/ FOLIC ACID TABLET (FP) PO SCH (10:28)
[2018-06-29 10:57] LABS: HEMATOCRIT 32.7 % (32.4-45.2); MCH 33.5 pg (25.7-33.7); MCHC 33.7 g/dl (32.0-36.0); MEAN CELL VOLUME 99.6 fl (80-96); MEAN PLT VOLUME 9.9 fl (7.5-11.1); PLATELET COUNT 192 K/MM3 (134-434); RBC 3.28 M/mm3 (3.60-5.2); RDW 14.5 % (11.6-15.6); WHITE BLOOD COUNT 4.3 K/mm3 (4.0-10.0)
[2018-06-29 11:11] LABS: ALBUMIN 2.9 g/dl (3.4-5.0); ALK PHOS 139 U/L (45-117); ANION GAP 6 MMOL/L (8-16); BILIRUBIN,TOTAL 0.2 mg/dL (0.2-1); BLOOD UREA NITROGEN 28 mg/dL (7-18); CALCIUM 9.4 mg/dL (8.5-10.1); CHLORIDE 108 mmol/L (98-107); CO2 24 mmol/L (21-32); CREATININE 1.1 mg/dL (0.55-1.3); GLUCOSE,RANDOM 88 mg/dL (74-106); POTASSIUM 4.4 mmol/L (3.5-5.1); SGOT/AST 12 U/L (15-37); SGPT/ALT 19 U/L (13-61); SODIUM 139 mmol/L (136-145); TOT PROT 6.2 g/dl (6.4-8.2)
[2018-06-29] MEDS ORDERED: SODIUM PHOSPHATE/NA BIPHOS 133 ML ENEMA PR ONE (12:28)
--- NOTE | 2018-06-29 12:44 | PN ---
[facility] CIWA - CIWA Score Nausea/Vomitin-Mild Nausea/No Vomiting Muscle Tremors: 2 Anxiety: 1-Mildly Anxious Agitation: 2 Paroxysmal Sweats: 1-Minimal Palms Moist Orientation: 1-Uncertain about Date Tacttile Disturbances: 0-None Auditory Disturbances: 0-None Visual Disturbances: 0-None Headache: 0-None Present CIWA-Ar Total Score: 8 S COWS - Scale Resting Pulse: 0= [place] 80 or Below Sweatin= Chills/Flushing Restless Observation: 0= Sits Still Pupil Size: 0= Normal to Room Light Bone or Joint Aches: 1= Mild Discomfort Runny Nose/ Eye Tearin= Nasal Congestion GI Upset > 30mins: 1= Stomach Cramp Tremor Observation of Outstretched Hands: 1= Tremor [place], Not Seen Yawning Observation: 1= 1-2x During Session Anxiety or Irritability: 1=Feels Anxious/Irritable Goose Flesh Skin: 0=Smooth Skin COWS Score: 7 [facility] Progress Note (SOAP) Subjective: hard stool difficulty defecation fleet enema x 1 encourage oral fluid and walking metamucil po daily Objective: 06/29/18 12:33 Vital Signs Temperature 97.6 F 06/29/18 09:35 Pulse Rate 71 06/29/18 09:35 Respiratory Rate 18 06/29/18 09:35 Blood Pressure 162/105 H 06/29/18 09:35 O2 Sat by Pulse Oximetry (%) Laboratory Last Values WBC 4.3 K/mm3 (4.0-10.0) 06/29/18 07:00 RBC 3.28 M/mm3 (3.60-5.2) L 06/29/18 07:00 Hgb 11.0 GM/dL (10.7-15.3) 06/29/18 07:00 Hct 32.7 % (32.4-45.2) 06/29/18 07:00 MCV 99.6 fl (80-96) H 06/29/18 07:00 MCH 33.5 pg (25.7-33.7) 06/29/18 07:00 MCHC 33.7 g/dl (32.0-36.0) 06/29/18 07:00 RDW 14.5 % (11.6-15.6) 06/29/18 07:00 Plt Count 192 K/MM3 (134-434) D 06/29/18 07:00 MPV 9.9 fl (7.5-11.1) 06/29/18 07:00 Sodium 139 mmol/L (136-145) 06/29/18 07:00 Potassium 4.4 mmol/L (3.5-5.1) 06/29/18 07:00 Chloride 108 mmol/L (98-107) H 06/29/18 07:00 Carbon Dioxide 24 mmol/L (21-32) 06/29/18 07:00 Anion Gap 6 MMOL/L (8-16) L 06/29/18 07:00 BUN 28 mg/dL (7-18) H 06/29/18 07:00 Creatinine 1.1 mg/dL (0.55-1.3) 06/29/18 07:00 Creat Clearance w eGFR 52.58 (>60) 06/29/18 07:00 Random Glucose 88 mg/dL (74-106) 06/29/18 07:00 Calcium 9.4 mg/dL (8.5-10.1) 06/29/18 07:00 Total Bilirubin 0.2 mg/dL (0.2-1) 06/29/18 07:00 AST 12 U/L (15-37) L 06/29/18 07:00 ALT 19 U/L (13-61) 06/29/18 07:00 Alkaline Phosphatase 139 U/L (45-117) H 06/29/18 07:00 Total Protein 6.2 g/dl (6.4-8.2) L 06/29/18 07:00 Albumin 2.9 g/dl (3.4-5.0) L 06/29/18 07:00 Valproic Acid < 3.0 ug/ml (50-100) L 06/29/18 07:00 RPR Titer Nonreactive (NONREACTIVE) 06/29/18 07:00 HIV 1&2 Antibody Screen Negative 06/29/18 07:00 HIV P24 Antigen Negative 06/29/18 07:00 lab noted long history of hypertension increase metoprolol to 25 mg po bid Assessment: 06/29/18 12:44 withdrawal sx Plan: continue detox
[2018-06-29] MEDS: PSYLLIUM 5.85 GM PACKET PO SCH (14:50)
[2018-06-29] MEDS: THIAMINE HCL 100 MG TABLET (FP) PO SCH (22:08)
[2018-06-30] MEDS ORDERED: chlordiazePOXIDE HCL 10 MG CAPSULE PO PRN (05:00)
[2018-06-30] MEDS: chlordiazePOXIDE HCL 10 MG CAPSULE PO SCH ×3 (05:23→22:16)
[2018-06-30] MEDS: NICOTINE POLACRILEX 2 MG GUM BUC PRN ×4 (05:30→22:18)
[2018-06-30] MEDS ORDERED: METHADONE HCL 10 MG TABLET (FOR DETOX USE ONLY) PO ONE (10:00)
[2018-06-30] MEDS: NICOTINE 14 MG/24 HOURS TOPICAL PATCH TD SCH (10:25)
[2018-06-30] MEDS: PRENATAL VITAMINS W/ FOLIC ACID TABLET (FP) PO SCH (10:25)
[2018-06-30] MEDS: metoPROLOL SUCCINATE 25 MG TAB.SR.24H (FP) PO SCH ×2 (10:25→22:16)
[2018-06-30] MEDS: LISINOPRIL 5 MG TABLET (FP) PO SCH (10:25)
[2018-06-30] MEDS: ASPIRIN 81 MG CHEWABLE TABLETS PO SCH (10:25)
[2018-06-30] MEDS: PSYLLIUM 5.85 GM PACKET PO SCH (10:26)
[2018-06-30] MEDS ORDERED: ALBUTEROL SO4 8 GM HFA INHALER IH ONE (11:04)
[2018-06-30] MEDS ORDERED: ALBUTEROL SO4 0.083% IH SOL 2.5 MG/3 ML VIAL.NEB. NEB PRN (11:10)
[2018-06-30] MEDS ORDERED: ALBUTEROL SO4 8 GM HFA INHALER IH PRN (11:10)
--- NOTE | 2018-06-30 11:36 | PN ---
[facility] CIWA - CIWA Score Nausea/Vomitin-Mild Nausea/No Vomiting Muscle Tremors: 2 Anxiety: 1-Mildly Anxious Agitation: 1-Slight > Activity Paroxysmal Sweats: 1-Minimal Palms Moist Orientation: 0-Oriented Tacttile Disturbances: 0-None Auditory Disturbances: 0-None Visual Disturbances: 0-None Headache: 0-None Present CIWA-Ar Total Score: 6 [facility] COWS - Scale Resting Pulse: 0= [place] 80 or Below Sweatin= Chills/Flushing Restless Observation: 0= Sits Still Pupil Size: 0= Normal to Room Light Bone or Joint Aches: 1= Mild Discomfort Runny Nose/ Eye Tearin= Nasal Congestion GI Upset > 30mins: 1= Stomach Cramp Tremor Observation of Outstretched Hands: 1= Tremor [place], Not Seen Yawning Observation: 0= None Anxiety or Irritability: 1=Feels Anxious/Irritable Goose Flesh Skin: 0=Smooth Skin COWS Score: 6 S Progress Note (SOAP) Subjective: long history of asthma wheezing bilaterally ventolin prn albuterol prn symbical bid Objective: 06/30/18 11:34 Vital Signs Temperature 97.4 F L 06/30/18 09:05 Pulse Rate 79 06/30/18 09:05 Respiratory Rate 18 06/30/18 09:05 Blood Pressure 134/81 06/30/18 09:05 O2 Sat by Pulse Oximetry (%) Laboratory Last Values WBC 4.3 K/mm3 (4.0-10.0) 06/29/18 07:00 RBC 3.28 M/mm3 (3.60-5.2) L 06/29/18 07:00 Hgb 11.0 GM/dL (10.7-15.3) 06/29/18 07:00 Hct 32.7 % (32.4-45.2) 06/29/18 07:00 MCV 99.6 fl (80-96) H 06/29/18 07:00 MCH 33.5 pg (25.7-33.7) 06/29/18 07:00 MCHC 33.7 g/dl (32.0-36.0) 06/29/18 07:00 RDW 14.5 % (11.6-15.6) 06/29/18 07:00 Plt Count 192 K/MM3 (134-434) D 06/29/18 07:00 MPV 9.9 fl (7.5-11.1) 06/29/18 07:00 Sodium 139 mmol/L (136-145) 06/29/18 07:00 Potassium 4.4 mmol/L (3.5-5.1) 06/29/18 07:00 Chloride 108 mmol/L (98-107) H 06/29/18 07:00 Carbon Dioxide 24 mmol/L (21-32) 06/29/18 07:00 Anion Gap 6 MMOL/L (8-16) L 06/29/18 07:00 BUN 28 mg/dL (7-18) H 06/29/18 07:00 Creatinine 1.1 mg/dL (0.55-1.3) 06/29/18 07:00 Creat Clearance w eGFR 52.58 (>60) 06/29/18 07:00 Random Glucose 88 mg/dL (74-106) 06/29/18 07:00 Calcium 9.4 mg/dL (8.5-10.1) 06/29/18 07:00 Total Bilirubin 0.2 mg/dL (0.2-1) 06/29/18 07:00 AST 12 U/L (15-37) L 06/29/18 07:00 ALT 19 U/L (13-61) 06/29/18 07:00 Alkaline Phosphatase 139 U/L (45-117) H 06/29/18 07:00 Total Protein 6.2 g/dl (6.4-8.2) L 06/29/18 07:00 Albumin 2.9 g/dl (3.4-5.0) L 06/29/18 07:00 Valproic Acid < 3.0 ug/ml (50-100) L 06/29/18 07:00 RPR Titer Nonreactive (NONREACTIVE) 06/29/18 07:00 HIV 1&2 Antibody Screen Negative 06/29/18 07:00 HIV P24 Antigen Negative 06/29/18 07:00 lab noted bun elevation repeat Assessment: 06/30/18 11:37 alcohol and opiate withdrawal sx Plan: continue detox
[2018-06-30] MEDS: cloNIDine HCL 0.1 MG TABLET PO PRN (14:14)
[2018-06-30] MEDS: THIAMINE HCL 100 MG TABLET (FP) PO SCH (22:15)
[2018-06-30] MEDS: BUDESONIDE/FORMETEROL FUMARATE 80/4.5 mcg INHALER IH SCH (22:18)
[2018-07-01] MEDS: NICOTINE POLACRILEX 2 MG GUM BUC PRN (05:23)
[2018-07-01] MEDS: chlordiazePOXIDE HCL 10 MG CAPSULE PO SCH (05:23)
[2018-07-01] MEDS ORDERED: METHADONE HCL 10 MG TABLET (FOR DETOX USE ONLY) PO ONE (10:00)
[2018-07-01] MEDS: metoPROLOL SUCCINATE 25 MG TAB.SR.24H (FP) PO SCH ×2 (10:33→22:12)
[2018-07-01] MEDS: ASPIRIN 81 MG CHEWABLE TABLETS PO SCH (10:33)
[2018-07-01] MEDS: LISINOPRIL 5 MG TABLET (FP) PO SCH (10:33)
[2018-07-01] MEDS: PRENATAL VITAMINS W/ FOLIC ACID TABLET (FP) PO SCH (10:33)
[2018-07-01] MEDS: BUDESONIDE/FORMETEROL FUMARATE 80/4.5 mcg INHALER IH SCH ×2 (10:34→22:13)
[2018-07-01] MEDS: PSYLLIUM 5.85 GM PACKET PO SCH (10:37)
[2018-07-01] MEDS: NICOTINE 14 MG/24 HOURS TOPICAL PATCH TD SCH (11:06)
--- NOTE | 2018-07-01 13:26 | PN ---
[facility] CIWA - CIWA Score Nausea/Vomitin-Mild Nausea/No Vomiting Muscle Tremors: 1-None Visible, but [place] Anxiety: 0-No Anxiety, at Ease Agitation: 1-Slight > Activity Paroxysmal Sweats: No Perspiration Orientation: 0-Oriented Tacttile Disturbances: 0-None Auditory Disturbances: 0-None Visual Disturbances: 0-None Headache: 0-None Present CIWA-Ar Total Score: 3 S COWS - Scale Resting Pulse: 0= [place] 80 or Below Sweatin= Chills/Flushing Restless Observation: 0= Sits Still Pupil Size: 0= Normal to Room Light Bone or Joint Aches: 1= Mild Discomfort Runny Nose/ Eye Tearin= Nasal Congestion GI Upset > 30mins: 0= None Tremor Observation of Outstretched Hands: 0= None Yawning Observation: 0= None Anxiety or Irritability: 0= None Goose Flesh Skin: 0=Smooth Skin COWS Score: 3 S Progress Note (SOAP) Subjective: feeling better discuss aftercare with staff social with peers in day room Objective: 07/01/18 13:29 Vital Signs Temperature 97.1 F L 07/01/18 09:19 Pulse Rate 64 07/01/18 09:19 Respiratory Rate 18 07/01/18 09:19 Blood Pressure 146/86 07/01/18 09:19 O2 Sat by Pulse Oximetry (%) Laboratory Last Values WBC 4.3 K/mm3 (4.0-10.0) 06/29/18 07:00 RBC 3.28 M/mm3 (3.60-5.2) L 06/29/18 07:00 Hgb 11.0 GM/dL (10.7-15.3) 06/29/18 07:00 Hct 32.7 % (32.4-45.2) 06/29/18 07:00 MCV 99.6 fl (80-96) H 06/29/18 07:00 MCH 33.5 pg (25.7-33.7) 06/29/18 07:00 MCHC 33.7 g/dl (32.0-36.0) 06/29/18 07:00 RDW 14.5 % (11.6-15.6) 06/29/18 07:00 Plt Count 192 K/MM3 (134-434) D 06/29/18 07:00 MPV 9.9 fl (7.5-11.1) 06/29/18 07:00 Sodium 139 mmol/L (136-145) 06/29/18 07:00 Potassium 4.4 mmol/L (3.5-5.1) 06/29/18 07:00 Chloride 108 mmol/L (98-107) H 06/29/18 07:00 Carbon Dioxide 24 mmol/L (21-32) 06/29/18 07:00 Anion Gap 6 MMOL/L (8-16) L 06/29/18 07:00 BUN 19 mg/dL (7-18) H 07/01/18 07:00 Creatinine 1.1 mg/dL (0.55-1.3) 06/29/18 07:00 Creat Clearance w eGFR 52.58 (>60) 06/29/18 07:00 Random Glucose 88 mg/dL (74-106) 06/29/18 07:00 Calcium 9.4 mg/dL (8.5-10.1) 06/29/18 07:00 Total Bilirubin 0.2 mg/dL (0.2-1) 06/29/18 07:00 AST 12 U/L (15-37) L 06/29/18 07:00 ALT 19 U/L (13-61) 06/29/18 07:00 Alkaline Phosphatase 139 U/L (45-117) H 06/29/18 07:00 Total Protein 6.2 g/dl (6.4-8.2) L 06/29/18 07:00 Albumin 2.9 g/dl (3.4-5.0) L 06/29/18 07:00 Valproic Acid < 3.0 ug/ml (50-100) L 06/29/18 07:00 RPR Titer Nonreactive (NONREACTIVE) 06/29/18 07:00 HIV 1&2 Antibody Screen Negative 06/29/18 07:00 HIV P24 Antigen Negative 06/29/18 07:00 lab noted long history of hypertension doing well with antihypertensant medication systolic gradually decreasing from 180-122 discuss risks of bp elevation 07/01/18 13:30 Assessment: 07/01/18 13:32 mild alcohol and opiate withdrawal sx Plan: continue detox
[2018-07-01] MEDS: THIAMINE HCL 100 MG TABLET (FP) PO SCH (22:12)
[2018-07-02] MEDS ORDERED: METHADONE HCL 5 MG TABLET (FOR DETOX USE ONLY) PO ONE (06:00)
[2018-07-02 09:30] VITALS: BP 139/86; PULSE 67; TEMP 97.1
--- NOTE | 2018-07-02 11:49 | DS ---
[facility] Detox Discharge Summary Admission Date: 06/28/18 Discharge Date: 07/02/18 - History Present History: Alcohol Dependence, Opioid Dependence Additional Comments: 52 years old female admitted on 06/27/18 for alcohol and opiate withdrawal stabilization completed detox [facility] Pert[facility] Past History: bring in medication list and lab report to aftercare appointment - Physical Exam Results Vital Signs: Vital Signs Temperature 97.1 F L 07/02/18 09:29 Pulse Rate 67 07/02/18 09:29 Respiratory Rate 18 07/02/18 09:29 Blood Pressure 139/86 07/02/18 09:29 O2 Sat by Pulse Oximetry (%) Pertinent Admission Physical Exam Findings: alcohol and opiate withdrawal sx Laboratory Last Values WBC 4.3 K/mm3 (4.0-10.0) 06/29/18 07:00 RBC 3.28 M/mm3 (3.60-5.2) L 06/29/18 07:00 Hgb 11.0 GM/dL (10.7-15.3) 06/29/18 07:00 Hct 32.7 % (32.4-45.2) 06/29/18 07:00 MCV 99.6 fl (80-96) H 06/29/18 07:00 MCH 33.5 pg (25.7-33.7) 06/29/18 07:00 MCHC 33.7 g/dl (32.0-36.0) 06/29/18 07:00 RDW 14.5 % (11.6-15.6) 06/29/18 07:00 Plt Count 192 K/MM3 (134-434) D 06/29/18 07:00 MPV 9.9 fl (7.5-11.1) 06/29/18 07:00 Sodium 139 mmol/L (136-145) 06/29/18 07:00 Potassium 4.4 mmol/L (3.5-5.1) 06/29/18 07:00 Chloride 108 mmol/L (98-107) H 06/29/18 07:00 Carbon Dioxide 24 mmol/L (21-32) 06/29/18 07:00 Anion Gap 6 MMOL/L (8-16) L 06/29/18 07:00 BUN 19 mg/dL (7-18) H 07/01/18 07:00 Creatinine 1.1 mg/dL (0.55-1.3) 06/29/18 07:00 Creat Clearance w eGFR 52.58 (>60) 06/29/18 07:00 Random Glucose 88 mg/dL (74-106) 06/29/18 07:00 Calcium 9.4 mg/dL (8.5-10.1) 06/29/18 07:00 Total Bilirubin 0.2 mg/dL (0.2-1) 06/29/18 07:00 AST 12 U/L (15-37) L 06/29/18 07:00 ALT 19 U/L (13-61) 06/29/18 07:00 Alkaline Phosphatase 139 U/L (45-117) H 06/29/18 07:00 Total Protein 6.2 g/dl (6.4-8.2) L 06/29/18 07:00 Albumin 2.9 g/dl (3.4-5.0) L 06/29/18 07:00 Valproic Acid < 3.0 ug/ml (50-100) L 06/29/18 07:00 RPR Titer Nonreactive (NONREACTIVE) 06/29/18 07:00 HIV 1&2 Antibody Screen Negative 06/29/18 07:00 HIV P24 Antigen Negative 06/29/18 07:00 lab noted - Treatment Hospital Course: Detox Protocol Followed, Detoxed Safely, Responded well, Discharged Condition Good, Rehab Referral Accepted Patient has Accepted a Rehab Referral to: patient preferred to go home/consider aftercare - Medication Discharge Medications: Ambulatory Orders Aspirin 81 mg PO DAILY 06/27/18 Albuterol 0.083% Nebulizer [place] [Ventolin 0.083% Nebulizer Soln -] 1 neb NEB Q6H PRN 06/30/18 Albuterol Sulfate Inhaler - [Ventolin HFA Inhaler -] 2 inh PO Q4H PRN #1 inhaler 07/01/18 Budesonide/Formeterol Fumarate [SYMBICORT 80/4.5mcg -] 12 puff IH BID #1 inhaler 07/01/18 Lisinopril 5 mg PO DAILY #30 tablet 07/01/18 Metoprolol Succinate 25 mg PO BID #60 tab.er.24h 07/01/18 - Diagnosis (1) Alcohol dependence with uncomplicated withdrawal Status: Acute (2) Opioid dependence with withdrawal Status: Acute (3) Asthma Status: Chronic Qualifiers: Asthma severity: mild Asthma persistence: intermittent Asthma complication type: with status asthmaticus Qualified Code(s): J45.22 - Mild intermittent asthma with status asthmaticus (4) CHF (congestive heart failure) Status: Chronic Qualifiers: Heart failure type: unspecified Heart failure chronicity: unspecified Qualified Code(s): I50.9 - Heart failure, unspecified (5) HTN (hypertension) Status: Chronic Qualifiers: Hypertension type: essential hypertension Qualified Code(s): I10 - Essential (primary) hypertension (6) Nicotine dependence Status: Acute Qualifiers: Nicotine product type: cigarettes Substance use status: in withdrawal Qualified Code(s): F17.213 - Nicotine dependence, cigarettes, with withdrawal (7) Substance induced mood disorder Status: Resolved (8) Elevated BUN Status: Chronic (9) Bipolar II disorder Status: Suspected - AMA Did Patient Leave Against Medical Advice: No
== END 2018-07-02 09:37 | disposition home or self-care (01) | DRG 773 ==
LOC: YASAS 15:13 → Y3N 06-28 00:43
PROVIDERS: ADMIT Surgery; ATTEND Surgery
PROC: HZ2ZZZZ Detoxification Services for Substance Abuse Treatment (ICD-10-PCS; principal; 2018-06-28)
DX: F10.230 Alcohol dependence with withdrawal, uncomplicated (principal); F11.23 Opioid dependence with withdrawal; F14.20 Cocaine dependence, uncomplicated; F17.210 Nicotine dependence, cigarettes, uncomplicated; F31.9 Bipolar disorder, unspecified; F25.9 Schizoaffective disorder, unspecified; F19.24 Other psychoactive substance dependence with psychoactive substance-induced mood disorder; J45.22 Mild intermittent asthma with status asthmaticus; I25.119 Atherosclerotic heart disease of native coronary artery with unspecified angina pectoris; I11.0 Hypertensive heart disease with heart failure; I50.9 Heart failure, unspecified; R94.4 Abnormal results of kidney function studies; R94.31 Abnormal electrocardiogram [ECG] [EKG]; Z95.810 Presence of automatic (implantable) cardiac defibrillator; Z91.19 Patient's noncompliance with other medical treatment and regimen; Z88.0 Allergy status to penicillin
CPT/HCPCS: 36415; 80053; 80164; 84520; 85027; 86593; 87389; 93005; 93010; J0735

== ENCOUNTER 2018-08-27 11:19 | Inpatient (IN) | payer OTHER ==
[2018-08-27 12:31] VITALS: BMI 21.2
--- NOTE | 2018-08-27 14:48 | HP ---
CIWA Score Nausea/Vomitin Muscle Tremors: 2 Anxiety: 2 Agitation: 2 Paroxysmal Sweats: 1-Minimal Palms Moist Orientation: 0-Oriented Tacttile Disturbances: 1-Very Mild Itch/Numbness Auditory Disturbances: 1-Very Mild Visual Disturbances: 0-None Headache: 2-Mild CIWA-Ar Total Score: 13 - Admission Criteria OASAS Guidelines: Admission for Medically Managed Detox: Requires at least one of the followin. CIWA greater than 12 2. Seizures within the past 24 hours 3. Delirium tremens within the past 24 hours 4. Hallucinations within the past 24 hours 5. Acute intervention needed for co occurring medical disorder 6. Acute intervention needed for co occurring psychiatric disorder 7. Severe withdrawal that cannot be handled at a lower level of care (continued vomiting, continued diarrhea, abnormal vital signs) requiring intravenous medication and/or fluids 8. Admission ROS [facility] - HPI Chief Complaint: i need help to stop drinking alcohol,cocaine,dependence,heroin abused, seeking detox ,withdrawal symptom syncope hypertension nicotine dependence 7 cigarette/day,would like nicotine gum implanted defibrillator no significant period of sobriety bipolar disorder,no med Allergies/Adverse Reactions: Allergies Allergy/AdvReac Type Severity Reaction Status Date / Time Penicillins Allergy Severe Hives Verified 08/27/18 12:20 History of Present Illness: this 52 years old female with alcohol,cocaine dependence,seeking detox, please see chief complaint has history of asthma,icd,hypertension Exam Limitations: No Limitations - Ebola screening Have you traveled outside of the country in the last 21 days: No (N) Have you had contact with anyone from an Ebola affected area: No Do you have a fever: No - Review of Systems Constitutional: Night Sweats, Weakness, Unintentional Wgt. Loss EENT: reports: Tearing, Nose Congestion Respiratory: reports: No Symptoms reported Cardiac: reports: No Symptoms Reported GI: reports: Nausea, Poor Appetite, Abdominal cramping : reports: No Symptoms Reported Musculoskeletal: reports: Back Pain, Muscle Pain Integumentary: reports: Dryness Neuro: reports: Tremors Endocrine: reports: No Symptoms Reported Hematology: reports: No Symptoms Reported Psychiatric: reports: No Sypmtoms Reported, Judgement Intact, Mood/Affect Appropiate, other (bipolar disorder) Other Systems: Reviewed and Negative Patient History - Patient Medical History Hx Anemia: Yes (Not on medication) Hx Asthma: Yes (Not on medication) Hx Chronic Obstructive Pulmonary Disease (COPD): No Hx Cancer: No Hx Cardiac Disorders: Yes (h/o heart attack in 2009, cardiac arrhythmia) Hx Congestive Heart Failure: Yes (Not on medication) Hx Hypertension: Yes (Metoprolol and Lisinopril) Hx Hypercholesterolemia: No Hx Pacemaker: Yes (ICD in [place] 2009,2013) HX Cerebrovascular Accident: No Hx Seizures: No Hx Dementia: No Hx Diabetes: No Hx Gastrointestinal Disorders: No Hx Liver Disease: No Hx Genitourinary Disorders: No Hx Sexually Transmitted Disorders: No Hx Renal Disease (ESRD): No Hx Thyroid Disease: No Hx Human Immunodeficiency Virus (HIV): No (last 05/20 negative) Hx Hepatitis C: No Hx Depression: Yes (Not on medication) Hx Suicide Attempt: No (Denies suicidal ideation at this time) Hx Bipolar Disorder: Yes (DEPAKOTE/RISPERDAL) Hx Schizophrenia: No Other Medical History: no sucidal,no homicidal - Patient Surgical History Past Surgical History: Yes Hx Neurologic Surgery: No Hx Cataract Extraction: No Hx Cardiac Surgery: Yes (ICD 2009 and 2013) Hx Lung Surgery: No Hx Breast Surgery: No Hx Breast Biopsy: No Hx Abdominal Surgery: No Hx Appendectomy: No Hx Cholecystectomy: No Hx Genitourinary Surgery: No Hx Section: Yes (X 1 1991) Hx Orthopedic Surgery: No Anesthesia Reaction: No - PPD History Previous Implant?: Yes Documented Results: Negative w/o proof Implanted On Prior [facility] Admission?: Yes Date: 07/21/17 Results: 0 mm PPD to be Administered?: Yes - Reproductive History Patient is a Female of Child Bearing Age (11 -55 yrs old): Yes Last Menstrual Period: 08/06/18 Patient : No - Smoking Cessation Smoking history: Current every day smoker Have you smoked in the past 12 months: Yes Aproximately how many cigarettes per day: 8 Cigars Per Day: 0 Hx Chewing Tobacco Use: No Initiated information on smoking cessation: Yes 'Breaking Loose' booklet given: 08/27/18 - Substance & Tx. History Hx Alcohol Use: Yes Hx Substance Use: Yes Substance Use Type: Alcohol, Cocaine Hx Substance Use Treatment: Yes ([facility] 07[facility]02[facility]18) - Substances abused Alcohol Substance route: Oral Frequency: Daily Amount used: 8/OZ CANS BEER Age of first use: 22 Date of last use: 06/27/18 Heroin Substance route: Inhalation Frequency: 3-6 times per week Amount used: 2 BAGS Age of first use: 22 Date of last use: 06/26/18 Cocaine Substance route: Smoking Frequency: Daily Amount used: refused to anser Age of first use: 22 Date of last use: 08/26/18 Family Disease History - Family Disease History Family Disease History: Heart Disease: Father (ASTHMA, OF HEART DISEASE), Respiratory: Father, Other: Brother (ALCOHOLIC) Admission Physical Exam [facility] - Vital Signs Vital Signs: Vital Signs - 24 hr 08/27/18 12:19 Temperature 97.0 F L Pulse Rate 66 Respiratory 17 Rate Blood Pressure 159/103 H - Physical General Appearance: Yes: Moderate Distress, Tremorous, Irritable, Sweating, Anxious HEENTM: Yes: Normal ENT Inspection, HODA, Pharynx Normal Respiratory: Yes: Lungs Clear, Normal Breath Sounds, No Respiratory Distress Neck: Yes: Within Normal Limits, Supple, Trachea in good position Breast: Yes: Breast Exam Deferred Cardiology: Yes: Within Normal Limits, Regular Rhythm, Regular Rate, S1, S2, Other (icd in place left) Abdominal: Yes: Within Normal Limits, Normal Bowel Sounds, Non Tender, Flat, Soft Genitourinary: Yes: Within Normal Limits Back: Yes: Muscle Spasm Musculoskeletal: Yes: Back pain, Muscle Pain Extremities: Yes: Tremors 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 NML intact, Alert, Motor Strength 5/5 Integumentary: Yes: Dry Lymphatic: Yes: Within Normal Limits - Diagnostic (1) Alcohol dependence with uncomplicated withdrawal Current Visit: No Status: Acute (2) Asthma Current Visit: No Status: Chronic Qualifiers: Asthma severity: mild Asthma persistence: intermittent Asthma complication type: with status asthmaticus Qualified Code(s): J45.22 - Mild intermittent asthma with status asthmaticus (3) CAD (coronary artery disease) Current Visit: No Status: Chronic Qualifiers: Coronary Disease-Associated Artery/Lesion type: unspecified vessel or lesion type [place] vs. transplanted heart: unspecified whether [place] or transplanted heart Associated angina: with unspecified angina Qualified Code (s): I25.119 - Atherosclerotic heart disease of [place] coronary artery with unspecified angina pectoris (4) Cardiac arrhythmia Current Visit: No Status: Chronic Qualifiers: Arrhythmia type: paroxysmal tachycardia, unspecified Qualified Code(s): I47.9 - Paroxysmal tachycardia, unspecified; I47 - Paroxysmal tachycardia (5) Cocaine dependence Current Visit: No Status: Chronic (6) HTN (hypertension) Current Visit: No Status: Chronic Qualifiers: Hypertension type: essential hypertension Qualified Code(s): I10 - Essential (primary) hypertension (7) ICD (implantable cardioverter-defibrillator) in place Current Visit: No Status: Chronic (8) Bipolar II disorder Current Visit: No Status: Suspected Cleared for Admission [facility] - Detox or Rehab [facility] Level of Care: Medically Managed Detox Regimen/Protocol: Librium Breathalyzer - Breathalyzer Breathalyzer: 0 Urine Drug Screen - Test Device Lot number: [id number] Expiration date: 05/01/20 - Control Is test valid?: Yes - Results Drug screen NEGATIVE: No Urine drug screen results: LIZZETTE-Cocaine, BZO-Benzodiazepines Inpatient Rehab Admission - Rehab Decision to Admit Inpatient rehab admission?: No
[2018-08-27] MEDS ORDERED: METHOCARBAMOL 500 MG TABLET PO PRN (15:04)
[2018-08-27] MEDS ORDERED: MAGNESIUM HYDROX 2400MG/30ML ORAL SUSPENSION 30 ML CUP PO PRN (15:04)
[2018-08-27] MEDS ORDERED: NICOTINE POLACRILEX 2 MG GUM BUC PRN (15:04)
[2018-08-27] MEDS ORDERED: ACETAMINOPHEN 325 MG TABLET (FP) PO PRN ×2 (15:04)
[2018-08-27] MEDS ORDERED: IBUPROFEN 400 MG TABLET (FP) PO PRN (15:04)
[2018-08-27] MEDS ORDERED: MAGNESIUM CITRATE 300 ML BOTTLE PO PRN (15:04)
[2018-08-27] MEDS ORDERED: MELATONIN 5 MG TABLETS PO PRN (15:04)
[2018-08-27] MEDS ORDERED: MENTHOL/PHENOL 1 EACH UD MM PRN (15:04)
[2018-08-27] MEDS ORDERED: BISMUTH SUBSALICYLATE 262 MG/15 ML BTL PO PRN (15:04)
[2018-08-27] MEDS ORDERED: MAG HYDROX/AL HYDROX/SIMETH 30 ML UNIT-DOSE CUP PO PRN (15:04)
[2018-08-27] MEDS ORDERED: hydrOXYzine PAMOATE 25 MG CAPSULE (FP) PO PRN (15:04)
[2018-08-27] MEDS ORDERED: chlordiazePOXIDE HCL 25 MG CAPSULE PO PRN (15:04)
[2018-08-27] MEDS ORDERED: ALBUTEROL SO4 8 GM HFA INHALER IH PRN (15:09)
[2018-08-27] MEDS: LISINOPRIL 5 MG TABLET (FP) PO SCH (15:52)
[2018-08-27 17:01] LABS: PH,URINE 6.5 (5.0-8.0); URINE APPEARANCE CLEAR; URINE BILIRUBIN NEGATIVE (NEGATIVE); URINE COLOR YELLOW; URINE GLUCOSE (UA) NEGATIVE (NEGATIVE); URINE KETONE NEGATIVE (NEGATIVE); URINE LEUK ESTERASE NEGATIVE (NEGATIVE); URINE NITRITE NEGATIVE (NEGATIVE); URINE PROTEIN NEGATIVE (NEGATIVE); URINE UROBILINOGEN 0.2 mg/dL (0.2-1.0)
[2018-08-27 17:01] LABS: ALBUMIN 3.7 g/dl (3.4-5.0); BILIRUBIN,TOTAL 0.3 mg/dL (0.2-1); BLOOD UREA NITROGEN 28.7 mg/dL (7-18); CALCIUM 8.8 mg/dL (8.5-10.1); POTASSIUM 4.6 mmol/L (3.5-5.1); TOT PROT 7.2 g/dl (6.4-8.2)
[2018-08-27] MEDS: chlordiazePOXIDE HCL 25 MG CAPSULE PO SCH ×2 (18:10→22:30)
[2018-08-27 18:15] LABS: HEMATOCRIT 35.5 % (32.4-45.2); HEMOGLOBIN 11.7 GM/dL (10.7-15.3); MCH 32.1 pg (25.7-33.7); MEAN CELL VOLUME 97.3 fl (80-96); MEAN PLT VOLUME 9.2 fl (7.5-11.1); PLATELET COUNT 193 K/MM3 (134-434); RBC 3.65 M/mm3 (3.60-5.2); WHITE BLOOD COUNT 3.8 K/mm3 (4.0-10.0)
[2018-08-27] MEDS: metoPROLOL SUCCINATE 25 MG TAB.SR.24H (FP) PO SCH (22:30)
[2018-08-27] MEDS: THIAMINE HCL 100 MG TABLET (FP) PO SCH (22:30)
[2018-08-27] MEDS: BUDESONIDE/FORMETEROL FUMARATE 80/4.5 mcg INHALER IH SCH (23:40)
[2018-08-28] MEDS: chlordiazePOXIDE HCL 25 MG CAPSULE PO SCH ×4 (06:07→22:40)
--- NOTE | 2018-08-28 09:51 | CONSULT ---
[facility] Psychiatric Consult - Data Date of interview: 08/28/18 Admission source: Self-referred Identifying data: Ms Pedraza is 52 years old single Black female,, mother of 5 children, unemployed receiving SSD, homeless seeking detox treatment for alcohol , opioid ans cocaine Substance Abuse History: Reports history of alcohol, heroin and cocaine use. Refer to addiction counselor's summary for further information Medical History: Significant for anemia, bronchial asthma, hypertension, arrhyhtmia(ICD implantation), coronary artery disease history of myocardial infarction in 2009, section (1991). Smokes 8 cigarettes daily Psychiatric History: Patient reports that her first psychiatric contact was in 1996 when she was admitted to [facility] and diagnosed with Bipolar and depression. Reports multiple subsequent psychiatric hospitalizations at various facilities [facility], [facility], [facility], [facility], [facility], [facility]. Reports that he was at [facility] from February 2014 to May 2014. He was discharged on Depakote and Risperdal and referred to transitional housing on [facility]. She said that she was there for 3-4 months and received psychiatric treatment while there. 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 Denies previous suicide attempt. At present, denies experiencing psychotic, manic or depressive symptoms, S/H ideations. However, reports sleeping poorly. Expresses desire to resume Risperdal and Depakote and requests some medication for sleep stronger than Melatonin administered to him last night Physical/Sexual Abuse/Trauma History: Denies history of emotional, physical or sexual abuse as well as DV relationship. No service Additional Comment: Reports history of multiple previous misdemeanor arrests on charges of possession of parphernalia, grand auto theft. Denies being on probation at present Mental Status Exam - Mental Status Exam Alert and Oriented to: Time, Place, Person Cognitive Function: Fair Patient Appearance: Well Groomed Mood: Hopeful, Euthymic Affect: Appropriate Patient Behavior: Cooperative Speech Pattern: Clear Voice Loudness: Normal Thought Process: Intact, Goal Oriented Thought Disorder: Not Present Hallucinations: Denies Suicidal Ideation: Denies Homicidal Ideation: Denies Insight/Judgement: Poor Sleep: Poorly Appetite: Good Muscle strength/Tone: Normal Gait/Station: Normal Psychiatric Findings - Problem List ([place] 1, 2,3) (1) Schizoaffective disorder Current Visit: No Status: Chronic Comment: By history. Asymptomatic. Non compliant with medications. (2) Bipolar II disorder Current Visit: No Status: Ruled-out (3) Substance-induced sleep disorder Current Visit: Yes Status: Acute (4) Alcohol dependence with uncomplicated withdrawal Current Visit: No Status: Acute (5) Opioid dependence with withdrawal Current Visit: No Status: Acute (6) Cocaine dependence Current Visit: No Status: Acute (7) Nicotine dependence Current Visit: No Status: Chronic Qualifiers: Nicotine product type: cigarettes Substance use status: in withdrawal Qualified Code(s): F17.213 - Nicotine dependence, cigarettes, with withdrawal (8) Anemia Current Visit: No Status: Chronic Qualifiers: Anemia type: unspecified type Qualified Code(s): D64.9 - Anemia, unspecified (9) Angina pectoris Current Visit: No Status: Chronic (10) Asthma Current Visit: No Status: Chronic Qualifiers: Asthma severity: mild Asthma persistence: intermittent Asthma complication type: with status asthmaticus Qualified Code(s): J45.22 - Mild intermittent asthma with status asthmaticus (11) CAD (coronary artery disease) Current Visit: No Status: Chronic Qualifiers: Coronary Disease-Associated Artery/Lesion type: unspecified vessel or lesion type [place] vs. transplanted heart: unspecified whether [place] or transplanted heart Associated angina: with unspecified angina Qualified Code (s): I25.119 - Atherosclerotic heart disease of [place] coronary artery with unspecified angina pectoris (12) Cardiac arrhythmia Current Visit: No Status: Chronic Qualifiers: Arrhythmia type: paroxysmal tachycardia, unspecified Qualified Code(s): I47.9 - Paroxysmal tachycardia, unspecified; I47 - Paroxysmal tachycardia (13) HTN (hypertension) Current Visit: No Status: Chronic Qualifiers: Hypertension type: essential hypertension Qualified Code(s): I10 - Essential (primary) hypertension (14) ICD (implantable cardioverter-defibrillator) in place Current Visit: No Status: Chronic - Initial Treatment Plan Initial Treatment Plan: 1) Start Risperdal 1 mg po BID and Depakote ER 500 mg po HS and Belsomra 10 mg po HS prn for insomnia. 2) Continue inpatient detoxification
[2018-08-28] MEDS: BUDESONIDE/FORMETEROL FUMARATE 80/4.5 mcg INHALER IH SCH ×2 (10:24→23:10)
[2018-08-28] MEDS: ASPIRIN 81 MG CHEWABLE TABLETS PO SCH (10:24)
[2018-08-28] MEDS: LISINOPRIL 5 MG TABLET (FP) PO SCH (10:25)
[2018-08-28] MEDS: metoPROLOL SUCCINATE 25 MG TAB.SR.24H (FP) PO SCH ×2 (10:25→22:38)
[2018-08-28] MEDS: PRENATAL VITAMINS W/ FOLIC ACID TABLET (FP) PO SCH (10:25)
[2018-08-28] MEDS: risperiDONE 1 MG TABLET (FP) PO SCH ×2 (11:14→22:37)
--- NOTE | 2018-08-28 12:23 | PN ---
[facility] CIWA - CIWA Score Nausea/Vomitin-No Nausea/No Vomiting Muscle Tremors: 2 Anxiety: 1-Mildly Anxious Agitation: 2 Paroxysmal Sweats: 2 Orientation: 0-Oriented Tacttile Disturbances: 0-None Auditory Disturbances: 0-None Visual Disturbances: 0-None Headache: 0-None Present CIWA-Ar Total Score: 7 S Progress Note (SOAP) Subjective: restless irritable agitation Objective: 08/28/18 12:22 Vital Signs Temperature 98.0 F 08/28/18 09:36 Pulse Rate 69 08/28/18 09:36 Respiratory Rate 18 08/28/18 09:36 Blood Pressure 156/99 08/28/18 09:36 O2 Sat by Pulse Oximetry (%) Laboratory Tests 08/27/18 08/27/18 08/27/18 15:00 15:00 15:00 WBC 3.8 L RBC 3.65 Hgb 11.7 Hct 35.5 MCV 97.3 H MCH 32.1 MCHC 33.0 RDW 14.0 Plt Count 193 MPV 9.2 Sodium 137 Potassium 4.6 Chloride 105 Carbon Dioxide 24 Anion Gap 8 BUN 28.7 H Creatinine 1.0 Est GFR (CKD-EPI)AfAm 76.07 Est GFR (CKD-EPI)NonAf 65.64 Random Glucose 68 L Calcium 8.8 Total Bilirubin 0.3 AST 30 ALT 30 Alkaline Phosphatase 139 H Total Protein 7.2 Albumin 3.7 Urine Color Urine Appearance Urine pH Ur Specific [place] Urine Protein Urine Glucose (UA) Urine Ketones Urine Blood Urine Nitrite Urine Bilirubin Urine Urobilinogen Ur Leukocyte Esterase U Pathogenic Cast Auto POC Urine HCG, Qual RPR Titer HIV 1&2 Antibody Screen Negative HIV P24 Antigen Negative 08/27/18 08/27/18 08/27/18 15:00 15:19 15:30 WBC RBC Hgb Hct MCV MCH MCHC RDW Plt Count MPV Sodium Potassium Chloride Carbon Dioxide Anion Gap BUN Creatinine Est GFR (CKD-EPI)AfAm Est GFR (CKD-EPI)NonAf Random Glucose Calcium Total Bilirubin AST ALT Alkaline Phosphatase Total Protein Albumin Urine Color Yellow Urine Appearance Clear Urine pH 6.5 Ur Specific [place] 1.022 Urine Protein Negative Urine Glucose (UA) Negative Urine Ketones Negative Urine Blood Negative Urine Nitrite Negative Urine Bilirubin Negative Urine Urobilinogen 0.2 Ur Leukocyte Esterase Negative U Pathogenic Cast Auto No Result Required. POC Urine HCG, Qual Negative RPR Titer Nonreactive HIV 1&2 Antibody Screen HIV P24 Antigen aaox3 ambulating no acute distress Assessment: 08/28/18 12:22 withdrawal sx Plan: continue detox increase fluids
--- NOTE | 2018-08-28 13:41 | EKG ---
Test Reason : Blood Pressure : / mmHG Vent. Rate : 071 BPM Atrial Rate : 071 BPM P-R Int : 166 ms QRS Dur : 088 ms QT Int : 448 ms P-R-T Axes : 037 024 090 degrees QTc Int : 486 ms NORMAL SINUS RHYTHM VOLTAGE CRITERIA FOR LEFT VENTRICULAR HYPERTROPHY CANNOT RULE OUT SEPTAL INFARCT (CITED ON OR BEFORE 19-JUL-2017) T WAVE ABNORMALITY, CONSIDER LATERAL ISCHEMIA ABNORMAL ECG WHEN COMPARED WITH ECG OF 28-JUN-2018 08:45, NO SIGNIFICANT CHANGE WAS FOUND Confirmed by GORDO GARCIA MD ([id number]) on 08/28/2018 1:41:41 PM Referred By: Confirmed By:GORDO GARCIA MD
[2018-08-28] MEDS ORDERED: DIVALPROEX NA *ER* EXTEND REL 500 MG TABLET.SA (FP) PO SCH (22:00)
[2018-08-28] MEDS ORDERED: SUVOREXANT 10 MG TABLET PO PRN (22:00)
[2018-08-28] MEDS: THIAMINE HCL 100 MG TABLET (FP) PO SCH (22:38)
[2018-08-29] MEDS: chlordiazePOXIDE HCL 25 MG CAPSULE PO SCH ×2 (05:42→10:58)
[2018-08-29 09:29] VITALS: BP 140/86; PULSE 68; TEMP 97.7
[2018-08-29] MEDS: risperiDONE 1 MG TABLET (FP) PO SCH (10:58)
[2018-08-29] MEDS: metoPROLOL SUCCINATE 25 MG TAB.SR.24H (FP) PO SCH (10:58)
[2018-08-29] MEDS: PRENATAL VITAMINS W/ FOLIC ACID TABLET (FP) PO SCH (10:58)
[2018-08-29] MEDS: BUDESONIDE/FORMETEROL FUMARATE 80/4.5 mcg INHALER IH SCH (10:58)
[2018-08-29] MEDS: ASPIRIN 81 MG CHEWABLE TABLETS PO SCH (10:58)
[2018-08-29] MEDS: LISINOPRIL 5 MG TABLET (FP) PO SCH (10:58)
--- NOTE | 2018-08-29 12:17 | PN ---
S Progress Note Note: Pt admitted with withdrawals; pt was c/o withdrawals and aggressive symptomatic management attempted however pt in spite of extensive motivational counseling regarding the risk of relapse, seizures, DT's, and or /loss, pt chose to sign out AMA.
--- NOTE | 2018-08-29 12:27 | DS ---
[facility] Detox Discharge Summary Admission Date: 08/27/18 - History Present History: Alcohol Dependence, Opioid Dependence - Physical Exam Results Vital Signs: Vital Signs Temperature 97.7 F 08/29/18 09:28 Pulse Rate 68 08/29/18 09:28 Respiratory Rate 17 08/29/18 09:28 Blood Pressure 140/86 08/29/18 09:28 O2 Sat by Pulse Oximetry (%) - Treatment Hospital Course: Discharged Condition Good - Medication Discharge Medications: Ambulatory Orders Aspirin 81 mg PO DAILY 06/27/18 Albuterol 0.083% Nebulizer [place] [Ventolin 0.083% Nebulizer Soln -] 1 neb NEB Q6H PRN 06/30/18 Albuterol Sulfate Inhaler - [Ventolin HFA Inhaler -] 2 inh PO Q4H PRN #1 inhaler 07/01/18 Budesonide/Formeterol Fumarate [SYMBICORT 80/4.5mcg -] 12 puff IH BID #1 inhaler 07/01/18 Lisinopril 5 mg PO DAILY #30 tablet 07/01/18 Metoprolol Succinate 25 mg PO BID #60 tab.er.24h 07/01/18 - Diagnosis (1) Substance-induced sleep disorder Current Visit: Yes Status: Acute (2) Alcohol dependence with uncomplicated withdrawal Current Visit: Yes Status: Chronic (3) Cocaine dependence Current Visit: Yes Status: Chronic Qualifiers: Substance use status: uncomplicated Qualified Code(s): F14.20 - Cocaine dependence, uncomplicated (4) Asthma Current Visit: Yes Status: Chronic Qualifiers: Asthma severity: mild Asthma persistence: intermittent Asthma complication type: with status asthmaticus Qualified Code(s): J45.22 - Mild intermittent asthma with status asthmaticus (5) CAD (coronary artery disease) Current Visit: Yes Status: Chronic Qualifiers: Coronary Disease-Associated Artery/Lesion type: unspecified vessel or lesion type [place] vs. transplanted heart: unspecified whether [place] or transplanted heart Associated angina: with unspecified angina Qualified Code (s): I25.119 - Atherosclerotic heart disease of [place] coronary artery with unspecified angina pectoris (6) CHF (congestive heart failure) Current Visit: Yes Status: Chronic Qualifiers: Heart failure type: unspecified Heart failure chronicity: unspecified Qualified Code(s): I50.9 - Heart failure, unspecified (7) Cardiac arrhythmia Current Visit: Yes Status: Chronic Qualifiers: Arrhythmia type: paroxysmal tachycardia, unspecified Qualified Code(s): I47.9 - Paroxysmal tachycardia, unspecified; I47 - Paroxysmal tachycardia (8) HTN (hypertension) Current Visit: Yes Status: Chronic Qualifiers: Hypertension type: essential hypertension Qualified Code(s): I10 - Essential (primary) hypertension (9) ICD (implantable cardioverter-defibrillator) in place Current Visit: Yes Status: Chronic (10) Nicotine dependence Current Visit: Yes Status: Chronic Qualifiers: Nicotine product type: cigarettes Substance use status: uncomplicated Qualified Code(s): F17.210 - Nicotine dependence, cigarettes, uncomplicated (11) Non-compliance Current Visit: No Status: Chronic (12) Schizoaffective disorder Current Visit: No Status: Chronic (13) Substance induced mood disorder Current Visit: No Status: Resolved (14) Bipolar II disorder Current Visit: No Status: Ruled-out - AMA Did Patient Leave Against Medical Advice: Yes (going home; referral provided)
[2018-08-29] MEDS ORDERED: chlordiazePOXIDE HCL 10 MG CAPSULE PO PRN (17:00)
[2018-08-29] MEDS ORDERED: chlordiazePOXIDE HCL 10 MG CAPSULE PO SCH (17:00)
[2018-08-30] MEDS ORDERED: chlordiazePOXIDE HCL 10 MG CAPSULE PO SCH (17:00)
== END 2018-08-29 12:28 | disposition left against medical advice (07) | DRG 770 ==
LOC: YASAS 11:19 → Y6N 15:03
PROVIDERS: ADMIT Surgery; ATTEND Surgery
PROC: HZ2ZZZZ Detoxification Services for Substance Abuse Treatment (ICD-10-PCS; principal; 2018-08-27)
DX: F10.230 Alcohol dependence with withdrawal, uncomplicated (principal); F14.20 Cocaine dependence, uncomplicated; F25.9 Schizoaffective disorder, unspecified; F19.282 Other psychoactive substance dependence with psychoactive substance-induced sleep disorder; F19.24 Other psychoactive substance dependence with psychoactive substance-induced mood disorder; F31.81 Bipolar II disorder; I25.119 Atherosclerotic heart disease of native coronary artery with unspecified angina pectoris; I11.0 Hypertensive heart disease with heart failure; I50.9 Heart failure, unspecified; I47.9 Paroxysmal tachycardia, unspecified; Z95.810 Presence of automatic (implantable) cardiac defibrillator; Z91.19 Patient's noncompliance with other medical treatment and regimen
CPT/HCPCS: 36415; 80053; 81003; 81025; 85027; 86593; 87389; 93005; 93010; J2794

== ENCOUNTER 2018-10-09 12:51 | Inpatient (IN) | payer OTHER ==
[2018-10-09 13:53] VITALS: BMI 21.2
--- NOTE | 2018-10-09 15:22 | HP ---
COWS - Scale Resting Pulse: 0= [place] 80 or Below Sweatin= Chills/Flushing Restless Observation: 3= Extraneous Movement Pupil Size: 0= Normal to Room Light Bone or Joint Aches: 2= Severe Diffuse Aches Runny Nose/ Eye Tearin= Runny Nose/Eyes GI Upset > 30mins: 1= Stomach Cramp Tremor Observation: 1= Tremor [place], Not Seen Yawning Observation: 2= >3x During Session Anxiety or Irritability: 1=Feels Anxious/Irritable Goose Flesh Skin: 0=Smooth Skin COWS Score: 13 CIWA Score Nausea/Vomitin Muscle Tremors: 2 Anxiety: 2 Agitation: 1-Slight > Activity Paroxysmal Sweats: 1-Minimal Palms Moist Orientation: 0-Oriented Tacttile Disturbances: 2-Mild Itch/Numbness/Burn Auditory Disturbances: 2-Mild Harshness/Frighten Visual Disturbances: 1-Very Mild Sensitivity Headache: 1-Very Mild CIWA-Ar Total Score: 14 - Admission Criteria OASAS Guidelines: Admission for Medically Managed Detox: Requires at least one of the followin. CIWA greater than 12 2. Seizures within the past 24 hours 3. Delirium tremens within the past 24 hours 4. Hallucinations within the past 24 hours 5. Acute intervention needed for co occurring medical disorder 6. Acute intervention needed for co occurring psychiatric disorder 7. Severe withdrawal that cannot be handled at a lower level of care (continued vomiting, continued diarrhea, abnormal vital signs) requiring intravenous medication and/or fluids 8. Admission ROS [facility] Chief Complaint: detox from alcohol and heroin Allergies/Adverse Reactions: Allergies Allergy/AdvReac Type Severity Reaction Status Date / Time Penicillins Allergy Severe Hives Verified 10/09/18 13:40 History of Present Illness: 52 y/o F with PMH CAD s/p CO w/ pacemaker, defib (2009 in initial, changed 2013) , HTN, HLD, COPD, depression, schizophrenia who presents for detox from alcohol and heroin. Per pt, she was sent from [facility] in [place]. She had initially went there 09/06/18, however since there were no beds, she was referred to [facility]. Last drink was yesterday. She had 8 beers; drinks 8-10 beers/day. States that she drinks more when she is stressed about her children. Has never had an alcohol withdrawal seizure, but has blacked out previously. Alcohol makes her "feel cheerful." Longest sobriety was 5-6 months when pt was previously. During this time, also smokes cocaine daily 1g. Never IVDA. Also uses heroin 1 bag yesterday via inhalation. Does up to 4 bags daily. Was in a methadone program previously at [facility] for 2-3 months. Was on a dose of 90mg. Left program on 09/04/18 however does not know why she left. Has never been on suboxone. Was at [facility] previously 08/20 for detox - left AMA. 06/2018, 07/2017 also in detox PMH: as above PsxH: 1991 meds: metoprolol, lisinopril, symbicort, asa, ventolin allergies: PCN- hives FH: mother - thyroid, DM SH: smokes 1/2 ppd since age 12. homeless. drug and alcohol use as above. Exam Limitations: No Limitations - Ebola screening Have you traveled outside of the country in the last 21 days: No Have you had contact with anyone from an Ebola affected area: No Have you been sick,other than usual withdrawal symptoms: No Do you have a fever: No - Review of Systems Constitutional: Chills EENT: reports: No Symptoms Reported Respiratory: reports: Cough, Shortness of Breath Cardiac: reports: No Symptoms Reported GI: reports: No Symptoms Reported : reports: No Symptoms Reported Musculoskeletal: reports: Back Pain, Joint Pain Integumentary: reports: No Symptoms Reported Neuro: reports: No Symptoms reported Endocrine: reports: No Symptoms Reported Hematology: reports: No Symptoms Reported Psychiatric: reports: No Sypmtoms Reported, Orientated x3 Patient History - Patient Medical History Hx Anemia: Yes (Not on medication) Hx Asthma: Yes (Not on medication) Hx Chronic Obstructive Pulmonary Disease (COPD): No Hx Cancer: No Hx Cardiac Disorders: Yes (h/o heart attack in 2009, cardiac arrhythmia) Hx Congestive Heart Failure: Yes (Not on medication) Hx Hypertension: Yes (Metoprolol and Lisinopril) Hx Hypercholesterolemia: No Hx Pacemaker: Yes (ICD, defib ppm in [place] 2009,2013) HX Cerebrovascular Accident: No Hx Seizures: No Hx Dementia: No Hx Diabetes: No Hx Gastrointestinal Disorders: No Hx Liver Disease: No Hx Genitourinary Disorders: No Hx Sexually Transmitted Disorders: No Hx Renal Disease (ESRD): No Hx Thyroid Disease: No Hx Human Immunodeficiency Virus (HIV): No (last 05/20 negative) Hx Hepatitis C: No Hx Depression: Yes (Not on medication) Hx Suicide Attempt: No (Denies suicidal ideation at this time) Hx Bipolar Disorder: Yes (DEPAKOTE/RISPERDAL) Hx Schizophrenia: No - Patient Surgical History Past Surgical History: Yes Hx Neurologic Surgery: No Hx Cataract Extraction: No Hx Cardiac Surgery: Yes (ICD 2009 and 2013) Hx Lung Surgery: No Hx Breast Surgery: No Hx Breast Biopsy: No Hx Abdominal Surgery: No Hx Appendectomy: No Hx Cholecystectomy: No Hx Genitourinary Surgery: No Hx Section: Yes (X 1 1991) Hx Orthopedic Surgery: No Anesthesia Reaction: No - PPD History Documented Results: Negative w/o proof Date: 07/21/17 Results: 0 mm PPD to be Administered?: Yes - Reproductive History Patient is a Female of Child Bearing Age (11 -55 yrs old): Yes Last Menstrual Period: 08/06/18 Patient : No - Smoking Cessation Smoking history: Current every day smoker Have you smoked in the past 12 months: Yes Aproximately how many cigarettes per day: 10 Cigars Per Day: 0 Hx Chewing Tobacco Use: No Initiated information on smoking cessation: Yes 'Breaking Loose' booklet given: 10/09/18 - Substances abused Alcohol Substance route: Oral Frequency: Daily Amount used: 8 16OZ CANS BEER Age of first use: 22 Date of last use: 10/08/18 Heroin Substance route: Inhalation Frequency: 3-6 times per week Amount used: 1 BAG Age of first use: 22 Date of last use: 10/07/18 Cocaine Substance route: Smoking Frequency: Daily Amount used: not sure of the amount (undisclosed) Age of first use: 22 Date of last use: 10/07/18 Family Disease History - Family Disease History Family Disease History: Heart Disease: Father (ASTHMA, OF HEART DISEASE), Respiratory: Father, Other: Brother (ALCOHOLIC) Admission Physical Exam [facility] - Vital Signs Vital Signs: Vital Signs - 24 hr 10/09/18 10/09/18 13:40 14:09 Temperature 97.4 F L 97.4 F L Pulse Rate 74 74 Respiratory 18 18 Rate Blood Pressure 171/118 H 171/118 H - Physical General Appearance: Yes: Within Normal Limits, Other (+talking and laughing to self) HEENTM: Yes: Within Normal Limits Respiratory: Yes: Within Normal Limits, Lungs Clear Neck: Yes: Supple Breast: Yes: Breast Exam Deferred Cardiology: Yes: Regular Rhythm, Regular Rate, S1, S2 Abdominal: Yes: Within Normal Limits Genitourinary: Yes: Within Normal Limits Back: Yes: Normal Inspection Musculoskeletal: Yes: Within Normal Limits Extremities: Yes: Normal Capillary Refill Neurological: 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: 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 NML intact Integumentary: Yes: Dry, Warm Lymphatic: Yes: Within Normal Limits - Diagnostic (1) Opiate withdrawal Current Visit: Yes Status: Acute (2) COPD (chronic obstructive pulmonary disease) Current Visit: Yes Status: Chronic (3) Alcohol dependence with uncomplicated withdrawal Current Visit: Yes Status: Acute (4) Asthma Current Visit: Yes Status: Chronic Qualifiers: Asthma severity: mild Asthma persistence: intermittent Asthma complication type: with status asthmaticus Qualified Code(s): J45.22 - Mild intermittent asthma with status asthmaticus (5) Cocaine dependence Current Visit: Yes Status: Chronic Qualifiers: Substance use status: uncomplicated Qualified Code(s): F14.20 - Cocaine dependence, uncomplicated (6) Nicotine dependence Current Visit: Yes Status: Chronic Qualifiers: Nicotine product type: cigarettes Substance use status: uncomplicated Qualified Code(s): F17.210 - Nicotine dependence, cigarettes, uncomplicated (7) Schizoaffective disorder Current Visit: Yes Status: Chronic Comment: By history. Asymptomatic. Non compliant with medications. (8) Bipolar II disorder Current Visit: Yes Status: Chronic Cleared for Admission S - Detox or Rehab [facility] Level of Care: Medically Managed Detox Regimen/Protocol: Methadone/Librium Breathalyzer - Breathalyzer Breathalyzer: 0 Urine Drug Screen - Test Device Lot number: [id number] Expiration date: 07/01/20 - Control Is test valid?: Yes - Results Drug screen NEGATIVE: No Urine drug screen results: LIZZETTE-Cocaine, MOP-Opiates Inpatient Rehab Admission - Rehab Decision to Admit Inpatient rehab admission?: No
[2018-10-09] MEDS ORDERED: chlordiazePOXIDE HCL 10 MG CAPSULE PO PRN (15:44)
[2018-10-09] MEDS ORDERED: METHADONE HCL 10 MG TABLET (FOR DETOX USE ONLY) PO ONE (15:45)
[2018-10-09] MEDS ORDERED: cloNIDine HCL 0.1 MG TABLET PO PRN (15:45)
[2018-10-09] MEDS ORDERED: MELATONIN 5 MG TABLETS PO PRN (15:46)
[2018-10-09] MEDS ORDERED: ACETAMINOPHEN 325 MG TABLET (FP) PO PRN ×2 (15:46)
[2018-10-09] MEDS ORDERED: MAG HYDROX/AL HYDROX/SIMETH 30 ML UNIT-DOSE CUP PO PRN (15:46)
[2018-10-09] MEDS ORDERED: IBUPROFEN 400 MG TABLET (FP) PO PRN (15:46)
[2018-10-09] MEDS ORDERED: METHOCARBAMOL 500 MG TABLET PO PRN (15:46)
[2018-10-09] MEDS ORDERED: MAGNESIUM HYDROX 2400MG/30ML ORAL SUSPENSION 30 ML CUP PO PRN (15:46)
[2018-10-09] MEDS ORDERED: BISMUTH SUBSALICYLATE 524 MG/30 ML UD PO PRN (15:46)
[2018-10-09] MEDS ORDERED: MENTHOL/PHENOL 1 EACH UD MM PRN (15:46)
[2018-10-09] MEDS ORDERED: MAGNESIUM CITRATE 300 ML BOTTLE PO PRN (15:46)
[2018-10-09] MEDS ORDERED: hydrOXYzine PAMOATE 25 MG CAPSULE (FP) PO PRN (15:46)
[2018-10-09] MEDS ORDERED: ALBUTEROL SO4 0.083% IH SOL 2.5 MG/3 ML VIAL.NEB. NEB PRN (15:48)
--- NOTE | 2018-10-09 16:01 | PN ---
Teaching Attending Note Name of Resident: Brooke Quinn ATTENDING PHYSICIAN STATEMENT I saw and evaluated the patient. I reviewed the resident's note and discussed the case with the resident. I agree with the resident's findings and plan as documented. SUBJECTIVE: this 52 years old female with heroin and alcohol dependence,cad,icd 201.2014, asthma,hypertension,schizophrenia,seeking detox OBJECTIVE: withdrawal signs and symptom Vital Signs Temperature 97.4 F L 10/09/18 14:09 Pulse Rate 74 10/09/18 14:09 Respiratory Rate 18 10/09/18 14:09 Blood Pressure 171/118 H 10/09/18 14:09 O2 Sat by Pulse Oximetry (%) ASSESSMENT AND PLAN: this patient need inpatient detox ,medically managed,Methadone and Librium regimen,psychiatric evaluation, inpatient rehab after detox
[2018-10-09] MEDS ORDERED: chlordiazePOXIDE HCL 25 MG CAPSULE PO ONE (17:00)
[2018-10-09] MEDS: LISINOPRIL 5 MG TABLET (FP) PO SCH (17:02)
[2018-10-09] MEDS: ASPIRIN 81 MG CHEWABLE TABLETS PO SCH (17:02)
--- NOTE | 2018-10-09 17:18 | PN ---
[facility] Progress Note Note: Vital Signs Temperature 97.4 F L 10/09/18 14:09 Pulse Rate 74 10/09/18 14:09 Respiratory Rate 18 10/09/18 14:09 Blood Pressure 171/118 H 10/09/18 14:09 O2 Sat by Pulse Oximetry (%) Patient with elevated BP, asymptomatic withdrawal sx Librium 25 mg, one time dose lisinopril 10 mg increase fluids patient scheduled for metoprolol 25 mg at 10 pm continue to monitor
[2018-10-09] MEDS ORDERED: LISINOPRIL 10 MG TABLET (FP) PO ONE (17:45)
[2018-10-09] MEDS: FLUOCINONIDE 0.05% TOP OINT (15 GM TUBE) TP SCH (19:02)
[2018-10-09] MEDS ORDERED: metoPROLOL SUCCINATE 25 MG TAB.SR.24H (FP) PO SCH (22:00)
[2018-10-09] MEDS: chlordiazePOXIDE HCL 25 MG CAPSULE PO SCH (22:28)
[2018-10-09] MEDS: metoPROLOL SUCCINATE 25 MG TAB.SR.24H (FP) PO SCH (22:29)
[2018-10-09] MEDS: THIAMINE HCL 100 MG TABLET (FP) PO SCH (22:29)
[2018-10-09] MEDS: BUDESONIDE/FORMETEROL FUMARATE 80/4.5 mcg INHALER IH SCH (22:31)
[2018-10-10] MEDS: chlordiazePOXIDE HCL 25 MG CAPSULE PO SCH ×3 (05:51→23:10)
[2018-10-10] MEDS: NICOTINE POLACRILEX 4 MG GUM BUC PRN ×2 (05:53→17:51)
--- NOTE | 2018-10-10 06:36 | CONSULT ---
[facility] Psychiatric Consult - Data Date of interview: 10/10/18 Admission source: [facility] Identifying data: Ms Coates is a 52 years old single Black female, mother of 5 children, unemployed receiving SSD, homeless seeking detox treatment for alcohol , opioid and cocaine Substance Abuse History: Reports history of alcohol, heroin and cocaine use. Refer to addiction counselor's summary for further information Medical History: Significant for anemia, bronchial asthma, hypertension, dyslipidemia, arrhythmia(ICD implantation), coronary artery disease history of myocardial infarction in 2009, section (1991). Smokes 10 cigarettes daily Psychiatric History: Patient is well known to fiction and nonfiction writer prose from a previous encounter during a recent admission in this facility in late August 2018. Historical narrative remains consistent. She reports that her first psychiatric contact was in 1996 when she was admitted to [facility] and diagnosed with Bipolar and depression. Reports multiple subsequent psychiatric hospital[place] at [place] [facility] , [facility], [facility], [facility], [facility] Reports that he was at [facility] from February 2014 to May 2014. He was discharged on Depakote and Risperdal and referred to transitional housing on [facility]. She said that she was there for 3-4 months and received psychiatric treatment while there. Told fiction and nonfiction writer prose she also received psychiatric treatment was in 2015 while a resident at [facility] in the [place]. When seen by fiction and nonfiction writer prose on 08/28/18, she was continued on Risperdal 1 mg/ bid and Depakote ER 500 mg/hs. Told fiction and nonfiction writer prose that she did not picked up her 30 days supply of medications following her discharge from this facility on and she has been off medications since. Denies previous suicide attempt. At present, denies experiencing psychotic, manic or depressive symptoms, S/H ideations. However, reports sleeping poorly. Expresses desire to resume Risperdal and Depakote and requests to be ordered Belsomra to which she responded well at her most recent admission Physical/Sexual Abuse/Trauma History: Denies history of emotional, physical or sexual abuse as well as DV relationship. No service Additional Comment: Reports history of multiple previous misdemeanor arrests on charges of possession of parphernalia, grand auto theft. Denies being on probation at present Mental Status Exam - Mental Status Exam Alert and Oriented to: Time, Place, Person Cognitive Function: Fair Patient Appearance: Well Groomed Mood: Hopeful, Euthymic Patient Behavior: Cooperative Speech Pattern: Clear Voice Loudness: Normal Thought Process: Intact, Goal Oriented Thought Disorder: Not Present Hallucinations: Denies Suicidal Ideation: Denies Homicidal Ideation: Denies Insight/Judgement: Poor Sleep: Poorly Appetite: Good Muscle strength/Tone: Normal Gait/Station: Normal Psychiatric Findings - Problem List ([place] 1, 2,3) (1) Schizoaffective disorder Current Visit: Yes Status: Chronic Comment: By history. Asymptomatic. Non compliant with medications. (2) Bipolar disorder Current Visit: Yes Status: Ruled-out (3) Substance-induced sleep disorder Current Visit: No Status: Acute (4) Alcohol dependence with uncomplicated withdrawal Current Visit: Yes Status: Acute (5) Opiate withdrawal Current Visit: Yes Status: Acute (6) Cocaine dependence Current Visit: Yes Status: Chronic Qualifiers: Substance use status: uncomplicated Qualified Code(s): F14.20 - Cocaine dependence, uncomplicated (7) Nicotine dependence Current Visit: Yes Status: Chronic Qualifiers: Nicotine product type: cigarettes Substance use status: uncomplicated Qualified Code(s): F17.210 - Nicotine dependence, cigarettes, uncomplicated (8) Asthma Current Visit: Yes Status: Chronic Qualifiers: Asthma severity: mild Asthma persistence: intermittent Asthma complication type: with status asthmaticus Qualified Code(s): J45.22 - Mild intermittent asthma with status asthmaticus (9) COPD (chronic obstructive pulmonary disease) Current Visit: Yes Status: Chronic (10) CAD (coronary artery disease) Current Visit: No Status: Chronic Qualifiers: Coronary Disease-Associated Artery/Lesion type: unspecified vessel or lesion type [place] vs. transplanted heart: unspecified whether [place] or transplanted heart Associated angina: with unspecified angina Qualified Code (s): I25.119 - Atherosclerotic heart disease of [place] coronary artery with unspecified angina pectoris (11) Cardiac arrhythmia Current Visit: No Status: Chronic Qualifiers: Arrhythmia type: paroxysmal tachycardia, unspecified Qualified Code(s): I47.9 - Paroxysmal tachycardia, unspecified; I47 - Paroxysmal tachycardia (12) HTN (hypertension) Current Visit: No Status: Chronic Qualifiers: Hypertension type: essential hypertension Qualified Code(s): I10 - Essential (primary) hypertension (13) ICD (implantable cardioverter-defibrillator) in place Current Visit: No Status: Chronic (14) HLD (hyperlipidemia) Current Visit: Yes Status: Chronic - Initial Treatment Plan Initial Treatment Plan: 1) Resume Risperdal 1 mg po BID and Depakote ER 500 mg po HS. 2) Start Belsomra 10 mg po HS prn for insomnia. 3) Continue inpatient detoxification
[2018-10-10] MEDS ORDERED: METHADONE HCL 5 MG TABLET (FOR DETOX USE ONLY) PO ONE (10:00)
[2018-10-10 10:53] LABS: BASO % 1.2 % (0-2.0); EOS % 5.5 % (0-4.5); HEMATOCRIT 29.6 % (32.4-45.2); LYMPH % 40.7 % (8-40); MCH 32.8 pg (25.7-33.7); MCHC 33.8 g/dl (32.0-36.0); MEAN CELL VOLUME 96.8 fl (80-96); MEAN PLT VOLUME 9.9 fl (7.5-11.1); MONO % 7.6 % (3.8-10.2); PLATELET COUNT 150 K/MM3 (134-434); RBC 3.05 M/mm3 (3.60-5.2); RDW 14.5 % (11.6-15.6); WHITE BLOOD COUNT 3.6 K/mm3 (4.0-10.0)
[2018-10-10 11:00] LABS: ALBUMIN 3.4 g/dl (3.4-5.0); BILIRUBIN,TOTAL 0.5 mg/dL (0.2-1); BLOOD UREA NITROGEN 34.5 mg/dL (7-18); CALCIUM 8.6 mg/dL (8.5-10.1); CREATININE 1.1 mg/dL (0.55-1.3); POTASSIUM 4.7 mmol/L (3.5-5.1); TOT PROT 6.7 g/dl (6.4-8.2)
[2018-10-10] MEDS: LISINOPRIL 5 MG TABLET (FP) PO SCH (11:04)
[2018-10-10] MEDS: metoPROLOL SUCCINATE 25 MG TAB.SR.24H (FP) PO SCH ×2 (11:04→23:15)
[2018-10-10] MEDS: ASPIRIN 81 MG CHEWABLE TABLETS PO SCH (11:04)
[2018-10-10] MEDS: PRENATAL VITAMINS W/ FOLIC ACID TABLET (FP) PO SCH (11:06)
[2018-10-10] MEDS: risperiDONE 1 MG TABLET (FP) PO SCH ×2 (11:07→23:10)
[2018-10-10] MEDS: FLUOCINONIDE 0.05% TOP OINT (15 GM TUBE) TP SCH (11:35)
[2018-10-10] MEDS: BUDESONIDE/FORMETEROL FUMARATE 80/4.5 mcg INHALER IH SCH ×2 (11:36→23:11)
--- NOTE | 2018-10-10 13:25 | PN ---
[facility] CIWA - CIWA Score Nausea/Vomitin-No Nausea/No Vomiting Muscle Tremors: 3 Anxiety: 3 Agitation: 3 Paroxysmal Sweats: 2 Orientation: 0-Oriented Tacttile Disturbances: 0-None Auditory Disturbances: 0-None Visual Disturbances: 0-None Headache: 0-None Present CIWA-Ar Total Score: 11 S COWS - Scale Resting Pulse: 0= [place] 80 or Below Sweatin= Chills/Flushing Restless Observation: 1= Difficult to Sit Still Pupil Size: 0= Normal to Room Light Bone or Joint Aches: 2= Severe Diffuse Aches Runny Nose/ Eye Tearin= Nasal Congestion GI Upset > 30mins: 0= None Tremor Observation of Outstretched Hands: 2= Slight Tremor Visible Yawning Observation: 1= 1-2x During Session Anxiety or Irritability: 2=Irritable/Anxious Goose Flesh Skin: 0=Smooth Skin COWS Score: 10 S Progress Note (SOAP) Subjective: shakes sweats interrupted sleep body aches agitation Objective: 10/10/18 13:24 Vital Signs Temperature 98.2 F 10/10/18 10:17 Pulse Rate 58 L 10/10/18 10:17 Respiratory Rate 18 10/10/18 10:17 Blood Pressure 114/70 10/10/18 10:17 O2 Sat by Pulse Oximetry (%) Laboratory Tests 10/10/18 10/10/18 10/10/18 07:00 07:00 07:30 WBC 3.6 L RBC 3.05 L Hgb 10.0 L Hct 29.6 L D MCV 96.8 H MCH 32.8 MCHC 33.8 RDW 14.5 Plt Count 150 D MPV 9.9 Absolute Neuts (auto) 1.6 Neutrophils % 45.0 Lymphocytes % 40.7 H Monocytes % 7.6 Eosinophils % 5.5 H Basophils % 1.2 Nucleated RBC % 0 Sodium Potassium Chloride Carbon Dioxide Anion Gap BUN Creatinine Est GFR (CKD-EPI)AfAm Est GFR (CKD-EPI)NonAf Random Glucose Calcium Total Bilirubin AST ALT Alkaline Phosphatase Total Protein Albumin HIV 1&2 Antibody Screen Cancelled HIV P24 Antigen Cancelled TB (QFT) Incubation Cancelled TB Test (QFT) Nil Cancelled TB Test (QFT) Mitogen Cancelled TB Test (QFT) Antigen Cancelled TB Test (QFT) Cancelled TB Positive Criteria Cancelled TB Test (QFT) Interp Cancelled 10/10/18 10/10/18 07:30 08:00 WBC RBC Hgb Hct MCV MCH MCHC RDW Plt Count MPV Absolute Neuts (auto) Neutrophils % Lymphocytes % Monocytes % Eosinophils % Basophils % Nucleated RBC % Sodium 137 Potassium 4.7 Chloride 106 Carbon Dioxide 23 Anion Gap 9 BUN 34.5 H Creatinine 1.1 Est GFR (CKD-EPI)AfAm 67.79 Est GFR (CKD-EPI)NonAf 58.49 Random Glucose 87 Calcium 8.6 Total Bilirubin 0.5 AST 35 ALT 69 H Alkaline Phosphatase 115 Total Protein 6.7 Albumin 3.4 HIV 1&2 Antibody Screen Cancelled HIV P24 Antigen Cancelled TB (QFT) Incubation TB Test (QFT) Nil TB Test (QFT) Mitogen TB Test (QFT) Antigen TB Test (QFT) TB Positive Criteria TB Test (QFT) Interp labs noted elevated BUN increase fluids repeat labs aaox3 ambulating no acute distress Assessment: 10/10/18 13:24 withdrawal sx Plan: continue detox increase fluids repeat labs
[2018-10-10] MEDS ORDERED: ALBUTEROL SO4 8 GM HFA INHALER IH PRN (13:26)
[2018-10-10] MEDS: FERROUS SO4 325 MG TABLET (FP) PO SCH (17:50)
[2018-10-10] MEDS ORDERED: SUVOREXANT 10 MG TABLET PO PRN (22:00)
[2018-10-10] MEDS: DIVALPROEX NA *ER* EXTEND REL 500 MG TABLET.SA (FP) PO SCH (23:10)
[2018-10-10] MEDS: THIAMINE HCL 100 MG TABLET (FP) PO SCH (23:10)
[2018-10-11] MEDS: chlordiazePOXIDE 5 MG CAPSULE PO SCH ×3 (05:28→22:58)
[2018-10-11] MEDS: FERROUS SO4 325 MG TABLET (FP) PO SCH ×3 (07:05→17:50)
[2018-10-11] MEDS ORDERED: METHADONE HCL 10 MG TABLET (FOR DETOX USE ONLY) PO ONE (10:00)
[2018-10-11 10:05] LABS: EOS % 5.8 % (0-4.5); HEMATOCRIT 29.6 % (32.4-45.2); HEMOGLOBIN 9.8 GM/dL (10.7-15.3); LYMPH % 45.8 % (8-40); MCH 32.5 pg (25.7-33.7); MEAN CELL VOLUME 98.3 fl (80-96); MEAN PLT VOLUME 9.9 fl (7.5-11.1); MONO % 11.6 % (3.8-10.2); NEUT % 35.8 % (42.8-82.8); PLATELET COUNT 149 K/MM3 (134-434); RBC 3.01 M/mm3 (3.60-5.2); RDW 14.7 % (11.6-15.6); WHITE BLOOD COUNT 3.7 K/mm3 (4.0-10.0)
[2018-10-11 10:06] LABS: ALBUMIN 3.2 g/dl (3.4-5.0); BILIRUBIN,TOTAL 0.2 mg/dL (0.2-1); BLOOD UREA NITROGEN 39.7 mg/dL (7-18); CALCIUM 9.1 mg/dL (8.5-10.1); CREATININE 1.3 mg/dL (0.55-1.3); POTASSIUM 4.6 mmol/L (3.5-5.1); TOT PROT 6.4 g/dl (6.4-8.2)
[2018-10-11] MEDS: risperiDONE 1 MG TABLET (FP) PO SCH ×2 (11:07→22:58)
[2018-10-11] MEDS: LISINOPRIL 5 MG TABLET (FP) PO SCH (11:07)
[2018-10-11] MEDS: ASPIRIN 81 MG CHEWABLE TABLETS PO SCH (11:07)
[2018-10-11] MEDS: metoPROLOL SUCCINATE 25 MG TAB.SR.24H (FP) PO SCH ×2 (11:07→22:58)
[2018-10-11] MEDS: FLUOCINONIDE 0.05% TOP OINT (15 GM TUBE) TP SCH (11:07)
[2018-10-11] MEDS: BUDESONIDE/FORMETEROL FUMARATE 80/4.5 mcg INHALER IH SCH ×2 (11:07→22:58)
[2018-10-11] MEDS: PRENATAL VITAMINS W/ FOLIC ACID TABLET (FP) PO SCH (11:07)
--- NOTE | 2018-10-11 13:40 | PN ---
[facility] CIWA - CIWA Score Nausea/Vomitin-No Nausea/No Vomiting Muscle Tremors: 3 Anxiety: 2 Agitation: 2 Paroxysmal Sweats: 1-Minimal [place] Moist Orientation: 0-Oriented Tacttile Disturbances: 0-None Auditory Disturbances: 0-None Visual Disturbances: 0-None Headache: 0-None Present CIWA-Ar Total Score: 8 B[facility] COWS - Scale Resting Pulse: 0= [place] 80 or Below Sweatin= Chills/Flushing Restless Observation: 1= Difficult to Sit Still Pupil Size: 0= Normal to Room Light Bone or Joint Aches: 2= Severe Diffuse Aches Runny Nose/ Eye Tearin= Nasal Congestion GI Upset > 30mins: 0= None Tremor Observation of Outstretched Hands: 1= Tremor [place], Not Seen Yawning Observation: 1= 1-2x During Session Anxiety or Irritability: 1=Feels Anxious/Irritable Goose Flesh Skin: 0=Smooth Skin COWS Score: 8 [facility] Progress Note (SOAP) Subjective: sweats mild shakes interrupted sleep body aches Objective: 10/11/18 13:38 Vital Signs Temperature 97.5 F L 10/11/18 09:40 Pulse Rate 59 L 10/11/18 09:40 Respiratory Rate 16 10/11/18 09:40 Blood Pressure 101/61 10/11/18 09:40 O2 Sat by Pulse Oximetry (%) Laboratory Tests 10/10/18 10/10/18 10/10/18 06:00 07:00 07:00 WBC RBC Hgb Hct MCV MCH MCHC RDW Plt Count MPV Absolute Neuts (auto) Neutrophils % Lymphocytes % Monocytes % Eosinophils % Basophils % Nucleated RBC % Sodium Potassium Chloride Carbon Dioxide Anion Gap BUN Creatinine Est GFR (CKD-EPI)AfAm Est GFR (CKD-EPI)NonAf Random Glucose Calcium Total Bilirubin AST ALT Alkaline Phosphatase Total Protein Albumin HIV 1&2 Ag/Ab, 4th Gen Non reactive HIV 1&2 Antibody Screen Cancelled HIV P24 Antigen Cancelled TB (QFT) Incubation Cancelled TB Test (QFT) Nil Cancelled TB Test (QFT) Mitogen Cancelled TB Test (QFT) Antigen Cancelled TB Test (QFT) Cancelled TB Positive Criteria Cancelled TB Test (QFT) Interp Cancelled 08/09/19 08/09/19 08/09/19 07:30 07:30 08:00 WBC 3.6 L RBC 3.05 L Hgb 10.0 L Hct 29.6 L D MCV 96.8 H MCH 32.8 MCHC 33.8 RDW 14.5 Plt Count 150 D MPV 9.9 Absolute Neuts (auto) 1.6 Neutrophils % 45.0 Lymphocytes % 40.7 H Monocytes % 7.6 Eosinophils % 5.5 H Basophils % 1.2 Nucleated RBC % 0 Sodium 137 Potassium 4.7 Chloride 106 Carbon Dioxide 23 Anion Gap 9 BUN 34.5 H Creatinine 1.1 Est GFR (CKD-EPI)AfAm 67.79 Est GFR (CKD-EPI)NonAf 58.49 Random Glucose 87 Calcium 8.6 Total Bilirubin 0.5 AST 35 ALT 69 H Alkaline Phosphatase 115 Total Protein 6.7 Albumin 3.4 HIV 1&2 Ag/Ab, 4th Gen HIV 1&2 Antibody Screen Cancelled HIV P24 Antigen Cancelled TB (QFT) Incubation TB Test (QFT) Nil TB Test (QFT) Mitogen TB Test (QFT) Antigen TB Test (QFT) TB Positive Criteria TB Test (QFT) Interp 10/11/18 10/11/18 08:00 08:00 WBC 3.7 L RBC 3.01 L Hgb 9.8 L Hct 29.6 L MCV 98.3 H MCH 32.5 MCHC 33.0 RDW 14.7 Plt Count 149 MPV 9.9 Absolute Neuts (auto) 1.3 L Neutrophils % 35.8 L D Lymphocytes % 45.8 H Monocytes % 11.6 H Eosinophils % 5.8 H Basophils % 1.0 Nucleated RBC % 0 Sodium 140 Potassium 4.6 Chloride 109 H Carbon Dioxide 24 Anion Gap 7 L BUN 39.7 H Creatinine 1.3 Est GFR (CKD-EPI)AfAm 55.40 Est GFR (CKD-EPI)NonAf 47.80 Random Glucose 71 L Calcium 9.1 Total Bilirubin 0.2 AST 22 ALT 54 Alkaline Phosphatase 115 Total Protein 6.4 Albumin 3.2 L HIV 1&2 Ag/Ab, 4th Gen HIV 1&2 Antibody Screen HIV P24 Antigen TB (QFT) Incubation TB Test (QFT) Nil TB Test (QFT) Mitogen TB Test (QFT) Antigen TB Test (QFT) TB Positive Criteria TB Test (QFT) Interp repeated labs no improvement encouraged pt to increase po water will repeat labs iron supplement ordered pt is aaox3 asymptomatic ambulating no acute distress Assessment: 10/11/18 13:40 withdrawal sx Plan: continue detox increase fluids
[2018-10-11] MEDS: THIAMINE HCL 100 MG TABLET (FP) PO SCH (22:57)
[2018-10-11] MEDS: DIVALPROEX NA *ER* EXTEND REL 500 MG TABLET.SA (FP) PO SCH (23:47)
[2018-10-12] MEDS ORDERED: chlordiazePOXIDE HCL 10 MG CAPSULE PO PRN
[2018-10-12] MEDS ORDERED: METHADONE HCL 5 MG TABLET (FOR DETOX USE ONLY) PO ONE (06:00)
[2018-10-12] MEDS: chlordiazePOXIDE HCL 10 MG CAPSULE PO SCH ×2 (06:11→13:53)
[2018-10-12] MEDS: FERROUS SO4 325 MG TABLET (FP) PO SCH ×3 (07:15→19:05)
[2018-10-12 10:04] LABS: BASO % 1.2 % (0-2.0); EOS % 5.2 % (0-4.5); HEMATOCRIT 27.2 % (32.4-45.2); LYMPH % 43.4 % (8-40); MCH 32.8 pg (25.7-33.7); MCHC 33.2 g/dl (32.0-36.0); MEAN CELL VOLUME 98.9 fl (80-96); MEAN PLT VOLUME 9.7 fl (7.5-11.1); MONO % 10.5 % (3.8-10.2); NEUT % 39.7 % (42.8-82.8); PLATELET COUNT 159 K/MM3 (134-434); RBC 2.75 M/mm3 (3.60-5.2); RDW 14.9 % (11.6-15.6); WHITE BLOOD COUNT 3.7 K/mm3 (4.0-10.0)
[2018-10-12 10:08] LABS: ALBUMIN 3.2 g/dl (3.4-5.0); BILIRUBIN,TOTAL 0.6 mg/dL (0.2-1); BLOOD UREA NITROGEN 34.8 mg/dL (7-18); CALCIUM 9.1 mg/dL (8.5-10.1); CREATININE 1.2 mg/dL (0.55-1.3); POTASSIUM 4.4 mmol/L (3.5-5.1); TOT PROT 6.3 g/dl (6.4-8.2)
[2018-10-12] MEDS: ASPIRIN 81 MG CHEWABLE TABLETS PO SCH (10:59)
[2018-10-12] MEDS: PRENATAL VITAMINS W/ FOLIC ACID TABLET (FP) PO SCH (10:59)
[2018-10-12] MEDS: metoPROLOL SUCCINATE 25 MG TAB.SR.24H (FP) PO SCH (10:59)
[2018-10-12] MEDS: LISINOPRIL 5 MG TABLET (FP) PO SCH (10:59)
[2018-10-12] MEDS: FLUOCINONIDE 0.05% TOP OINT (15 GM TUBE) TP SCH (10:59)
[2018-10-12] MEDS: BUDESONIDE/FORMETEROL FUMARATE 80/4.5 mcg INHALER IH SCH (10:59)
[2018-10-12] MEDS: risperiDONE 1 MG TABLET (FP) PO SCH (10:59)
[2018-10-12 17:37] VITALS: BP 139/87; PULSE 74; TEMP 97
--- NOTE | 2018-10-12 17:42 | PN ---
[facility] CIWA - CIWA Score Nausea/Vomitin-No Nausea/No Vomiting Muscle Tremors: None Anxiety: 3 Agitation: 3 Paroxysmal Sweats: No Perspiration Orientation: 0-Oriented Tacttile Disturbances: 0-None Auditory Disturbances: 0-None Visual Disturbances: 0-None Headache: 0-None Present CIWA-Ar Total Score: 6 S COWS - Scale Resting Pulse: 0= [place] 80 or Below Sweatin= No chills or Flushing Restless Observation: 3= Extraneous Movement Pupil Size: 0= Normal to Room Light Bone or Joint Aches: 1= Mild Discomfort Runny Nose/ Eye Tearin= None GI Upset > 30mins: 0= None Tremor Observation of Outstretched Hands: 0= None Yawning Observation: 0= None Anxiety or Irritability: 2=Irritable/Anxious Goose Flesh Skin: 0=Smooth Skin COWS Score: 6 [facility] Progress Note (SOAP) Subjective: Feels ok, medication working well Objective: 10/12/18 17:39 Last Vital Signs Temp Pulse Resp BP Pulse Ox 97 F L 74 18 139/87 10/12/18 17:36 10/12/18 17:36 10/12/18 17:36 10/12/18 17:36 Elevated b/p (has htn, on med) Laboratory Tests 10/10/18 10/10/18 10/10/18 06:00 07:00 07:00 WBC RBC Hgb Hct MCV MCH MCHC RDW Plt Count MPV Absolute Neuts (auto) Neutrophils % Lymphocytes % Monocytes % Eosinophils % Basophils % Nucleated RBC % Sodium Potassium Chloride Carbon Dioxide Anion Gap BUN Creatinine Est GFR (CKD-EPI)AfAm Est GFR (CKD-EPI)NonAf Random Glucose Calcium Total Bilirubin AST ALT Alkaline Phosphatase Total Protein Albumin HIV 1&2 Ag/Ab, 4th Gen Non reactive HIV 1&2 Antibody Screen Cancelled HIV P24 Antigen Cancelled TB (QFT) Incubation Cancelled TB Test (QFT) Nil Cancelled TB Test (QFT) Mitogen Cancelled TB Test (QFT) Antigen Cancelled TB Test (QFT) Cancelled TB Positive Criteria Cancelled TB Test (QFT) Interp Cancelled 10/10/18 10/10/18 10/10/18 07:30 07:30 08:00 WBC 3.6 L RBC 3.05 L Hgb 10.0 L Hct 29.6 L D MCV 96.8 H MCH 32.8 MCHC 33.8 RDW 14.5 Plt Count 150 D MPV 9.9 Absolute Neuts (auto) 1.6 Neutrophils % 45.0 Lymphocytes % 40.7 H Monocytes % 7.6 Eosinophils % 5.5 H Basophils % 1.2 Nucleated RBC % 0 Sodium 137 Potassium 4.7 Chloride 106 Carbon Dioxide 23 Anion Gap 9 BUN 34.5 H Creatinine 1.1 Est GFR (CKD-EPI)AfAm 67.79 Est GFR (CKD-EPI)NonAf 58.49 Random Glucose 87 Calcium 8.6 Total Bilirubin 0.5 AST 35 ALT 69 H Alkaline Phosphatase 115 Total Protein 6.7 Albumin 3.4 HIV 1&2 Ag/Ab, 4th Gen HIV 1&2 Antibody Screen Cancelled HIV P24 Antigen Cancelled TB (QFT) Incubation TB Test (QFT) Nil TB Test (QFT) Mitogen TB Test (QFT) Antigen TB Test (QFT) TB Positive Criteria TB Test (QFT) Inter 10/11/18 10/11/18 10/12/18 08:00 08:00 08:00 WBC 3.7 L 3.7 L RBC 3.01 L 2.75 L Hgb 9.8 L 9.0 L Hct 29.6 L 27.2 L MCV 98.3 H 98.9 H MCH 32.5 32.8 MCHC 33.0 33.2 RDW 14.7 14.9 Plt Count 149 159 MPV 9.9 9.7 Absolute Neuts (auto) 1.3 L 1.5 Neutrophils % 35.8 L D 39.7 L Lymphocytes % 45.8 H 43.4 H Monocytes % 11.6 H 10.5 H Eosinophils % 5.8 H 5.2 H Basophils % 1.0 1.2 Nucleated RBC % 0 0 Sodium 140 Potassium 4.6 Chloride 109 H Carbon Dioxide 24 Anion Gap 7 L BUN 39.7 H Creatinine 1.3 Est GFR (CKD-EPI)AfAm 55.40 Est GFR (CKD-EPI)NonAf 47.80 Random Glucose 71 L Calcium 9.1 Total Bilirubin 0.2 AST 22 ALT 54 Alkaline Phosphatase 115 Total Protein 6.4 Albumin 3.2 L HIV 1&2 Ag/Ab, 4th Gen HIV 1&2 Antibody Screen HIV P24 Antigen TB (QFT) Incubation TB Test (QFT) Nil TB Test (QFT) Mitogen TB Test (QFT) Antigen TB Test (QFT) TB Positive Criteria TB Test (QFT) Interp 10/12/18 08:00 WBC RBC Hgb Hct MCV MCH MCHC RDW Plt Count MPV Absolute Neuts (auto) Neutrophils % Lymphocytes % Monocytes % Eosinophils % Basophils % Nucleated RBC % Sodium 141 Potassium 4.4 Chloride 110 H Carbon Dioxide 21 Anion Gap 10 BUN 34.8 H Creatinine 1.2 Est GFR (CKD-EPI)AfAm 61.03 Est GFR (CKD-EPI)NonAf 52.65 Random Glucose 106 Calcium 9.1 Total Bilirubin 0.6 AST 21 ALT 45 Alkaline Phosphatase 98 Total Protein 6.3 L Albumin 3.2 L HIV 1&2 Ag/Ab, 4th Gen HIV 1&2 Antibody Screen HIV P24 Antigen TB (QFT) Incubation TB Test (QFT) Nil TB Test (QFT) Mitogen TB Test (QFT) Antigen TB Test (QFT) TB Positive Criteria TB Test (QFT) Interp Labs reviewed: elevated bun and anemia noted Assessment: 10/12/18 17:40 Withdrawal sxs Noted with azotemia and anemia Plan: Continue detox Scheduled for discharge tomorrow Azotemia: encouraged PO water hydration Anemia: encouraged to eat more green leafy vegetables, continue iron supplement
--- NOTE | 2018-10-12 20:03 | PN ---
[facility] Progress Note Note: patient did not want to complete treatment,all attempts to convince patient to stay with no avail,patient signed release AMA did not ant to wait
--- NOTE | 2018-10-12 20:08 | DS ---
[facility] Detox Discharge Summary Admission Date: 10/09/18 Discharge Date: 10/12/18 - History Present History: Alcohol Dependence, Cocaine Dependence, Opioid Dependence Additional Comments: patient singed release ama,advise follow up with private medical provider or call 911 if not feeling well Pertinent Past History: asthma hyperlipidemia implanted defibrillator hypertension cardiac arrythmia chf history - Physical Exam Results Vital Signs: Vital Signs Temperature 97 F L 10/12/18 17:36 Pulse Rate 74 10/12/18 17:36 Respiratory Rate 18 10/12/18 17:36 Blood Pressure 139/87 10/12/18 17:36 O2 Sat by Pulse Oximetry (%) Pertinent Admission Physical Exam Findings: withdrawal signs and symptom Laboratory Last Values WBC 3.7 K/mm3 (4.0-10.0) L 10/12/18 08:00 RBC 2.75 M/mm3 (3.60-5.2) L 10/12/18 08:00 Hgb 9.0 GM/dL (10.7-15.3) L 10/12/18 08:00 Hct 27.2 % (32.4-45.2) L 10/12/18 08:00 MCV 98.9 fl (80-96) H 10/12/18 08:00 MCH 32.8 pg (25.7-33.7) 10/12/18 08:00 MCHC 33.2 g/dl (32.0-36.0) 10/12/18 08:00 RDW 14.9 % (11.6-15.6) 10/12/18 08:00 Plt Count 159 K/MM3 (134-434) 10/12/18 08:00 MPV 9.7 fl (7.5-11.1) 10/12/18 08:00 Absolute Neuts (auto) 1.5 K/mm3 (1.5-8.0) 10/12/18 08:00 Neutrophils % 39.7 % (42.8-82.8) L 10/12/18 08:00 Lymphocytes % 43.4 % (8-40) H 10/12/18 08:00 Monocytes % 10.5 % (3.8-10.2) H 10/12/18 08:00 Eosinophils % 5.2 % (0-4.5) H 10/12/18 08:00 Basophils % 1.2 % (0-2.0) 10/12/18 08:00 Nucleated RBC % 0 % (0-0) 10/12/18 08:00 Sodium 141 mmol/L (136-145) 10/12/18 08:00 Potassium 4.4 mmol/L (3.5-5.1) 10/12/18 08:00 Chloride 110 mmol/L (98-107) H 10/12/18 08:00 Carbon Dioxide 21 mmol/L (21-32) 10/12/18 08:00 Anion Gap 10 MMOL/L (8-16) 10/12/18 08:00 BUN 34.8 mg/dL (7-18) H 10/12/18 08:00 Creatinine 1.2 mg/dL (0.55-1.3) 10/12/18 08:00 Est GFR (CKD-EPI)AfAm 61.03 10/12/18 08:00 Est GFR (CKD-EPI)NonAf 52.65 10/12/18 08:00 Random Glucose 106 mg/dL (74-106) 10/12/18 08:00 Calcium 9.1 mg/dL (8.5-10.1) 10/12/18 08:00 Total Bilirubin 0.6 mg/dL (0.2-1) 10/12/18 08:00 AST 21 U/L (15-37) 10/12/18 08:00 ALT 45 U/L (13-61) 10/12/18 08:00 Alkaline Phosphatase 98 U/L (45-117) 10/12/18 08:00 Total Protein 6.3 g/dl (6.4-8.2) L 10/12/18 08:00 Albumin 3.2 g/dl (3.4-5.0) L 10/12/18 08:00 HIV 1&2 Ag/Ab, 4th Gen Non reactive (Non Reactive) 10/10/18 06:00 HIV 1&2 Antibody Screen Cancelled 10/10/18 07:00 HIV P24 Antigen Cancelled 10/10/18 07:00 TB (QFT) Incubation Cancelled 10/10/18 07:00 TB Test (QFT) Nil Cancelled 10/10/18 07:00 TB Test (QFT) Mitogen Cancelled 10/10/18 07:00 TB Test (QFT) Antigen Cancelled 10/10/18 07:00 TB Test (QFT) Cancelled 10/10/18 07:00 TB Positive Criteria Cancelled 10/10/18 07:00 TB Test (QFT) Interp Cancelled 10/10/18 07:00 Vital Signs Temperature 97 F L 10/12/18 17:36 Pulse Rate 74 10/12/18 17:36 Respiratory Rate 18 10/12/18 17:36 Blood Pressure 139/87 10/12/18 17:36 O2 Sat by Pulse Oximetry (%) - Medication Discharge Medications: Ambulatory Orders Aspirin 81 mg PO DAILY 06/27/18 Albuterol 0.083% Nebulizer [place] [Ventolin 0.083% Nebulizer Soln -] 1 neb NEB Q6H PRN 06/30/18 Albuterol Sulfate Inhaler - [Ventolin HFA Inhaler -] 2 inh PO Q4H PRN #1 inhaler 07/01/18 Budesonide/Formeterol Fumarate [SYMBICORT 80/4.5mcg -] 12 puff IH BID #1 inhaler 07/01/18 Lisinopril 5 mg PO DAILY #30 tablet 07/01/18 Metoprolol Succinate 25 mg PO BID #60 tab.er.24h 07/01/18 - Diagnosis (1) Renal insufficiency Current Visit: Yes Status: Acute (2) Alcohol dependence with uncomplicated withdrawal Current Visit: Yes Status: Acute (3) Opiate withdrawal Current Visit: Yes Status: Acute (4) Asthma Current Visit: Yes Status: Chronic Qualifiers: Asthma severity: mild Asthma persistence: intermittent Asthma complication type: with status asthmaticus Qualified Code(s): J45.22 - Mild intermittent asthma with status asthmaticus (5) Bipolar II disorder Current Visit: Yes Status: Chronic (6) COPD (chronic obstructive pulmonary disease) Current Visit: Yes Status: Chronic (7) Cocaine dependence Current Visit: Yes Status: Chronic Qualifiers: Substance use status: uncomplicated Qualified Code(s): F14.20 - Cocaine dependence, uncomplicated (8) HLD (hyperlipidemia) Current Visit: Yes Status: Chronic (9) Nicotine dependence Current Visit: Yes Status: Chronic Qualifiers: Nicotine product type: cigarettes Substance use status: uncomplicated Qualified Code(s): F17.210 - Nicotine dependence, cigarettes, uncomplicated (10) Schizoaffective disorder Current Visit: Yes Status: Chronic (11) CAD (coronary artery disease) Current Visit: No Status: Chronic Qualifiers: Coronary Disease-Associated Artery/Lesion type: unspecified vessel or lesion type [place] vs. transplanted heart: unspecified whether [place] or transplanted heart Associated angina: with unspecified angina Qualified Code (s): I25.119 - Atherosclerotic heart disease of [place] coronary artery with unspecified angina pectoris (12) CHF (congestive heart failure) Current Visit: No Status: Chronic Qualifiers: Heart failure type: unspecified Heart failure chronicity: unspecified Qualified Code(s): I50.9 - Heart failure, unspecified (13) Cardiac arrhythmia Current Visit: No Status: Chronic Qualifiers: Arrhythmia type: paroxysmal tachycardia, unspecified Qualified Code(s): I47.9 - Paroxysmal tachycardia, unspecified; I47 - Paroxysmal tachycardia (14) HTN (hypertension) Current Visit: No Status: Chronic Qualifiers: Hypertension type: essential hypertension Qualified Code(s): I10 - Essential (primary) hypertension (15) ICD (implantable cardioverter-defibrillator) in place Current Visit: No Status: Chronic - AMA Did Patient Leave Against Medical Advice: Yes
[2018-10-13] MEDS ORDERED: chlordiazePOXIDE HCL 10 MG CAPSULE PO ONE (05:00)
== END 2018-10-12 19:16 | disposition left against medical advice (07) | DRG 770 ==
LOC: YASAS 12:51 → Y6N 15:56
PROVIDERS: ADMIT Surgery; ATTEND Surgery
PROC: HZ2ZZZZ Detoxification Services for Substance Abuse Treatment (ICD-10-PCS; principal; 2018-10-09)
DX: F11.23 Opioid dependence with withdrawal (principal); F10.230 Alcohol dependence with withdrawal, uncomplicated; F14.20 Cocaine dependence, uncomplicated; F17.210 Nicotine dependence, cigarettes, uncomplicated; F31.81 Bipolar II disorder; F25.9 Schizoaffective disorder, unspecified; F19.282 Other psychoactive substance dependence with psychoactive substance-induced sleep disorder; J44.9 Chronic obstructive pulmonary disease, unspecified; J45.22 Mild intermittent asthma with status asthmaticus; N28.9 Disorder of kidney and ureter, unspecified; E78.5 Hyperlipidemia, unspecified; I25.119 Atherosclerotic heart disease of native coronary artery with unspecified angina pectoris; I50.9 Heart failure, unspecified; I47.9 Paroxysmal tachycardia, unspecified; I11.0 Hypertensive heart disease with heart failure; D64.9 Anemia, unspecified; R79.89 Other specified abnormal findings of blood chemistry; Z95.810 Presence of automatic (implantable) cardiac defibrillator
CPT/HCPCS: 36415; 80053; 81025; 85025; 86480; 87389; J2794

== ENCOUNTER 2018-11-12 12:37 | Inpatient (IN) | payer OTHER ==
[2018-11-12 15:42] VITALS: BMI 21.9
--- NOTE | 2018-11-12 16:56 | HP ---
COWS - Scale Resting Pulse: 0= MD 80 or Below Sweatin= Chills/Flushing Restless Observation: 3= Extraneous Movement Pupil Size: 0= Normal to Room Light Bone or Joint Aches: 2= Severe Diffuse Aches Runny Nose/ Eye Tearin= Runny Nose/Eyes GI Upset > 30mins: 1= Stomach Cramp Tremor Observation: 2= Slight Tremor Visible Yawning Observation: 1= 1-2x During Session Anxiety or Irritability: 1=Feels Anxious/Irritable Goose Flesh Skin: 0=Smooth Skin COWS Score: 13 CIWA Score Nausea/Vomitin-Mild Nausea/No Vomiting Muscle Tremors: 2 Anxiety: 3 Agitation: 3 Paroxysmal Sweats: No Perspiration Orientation: 0-Oriented Tacttile Disturbances: 2-Mild Itch/Numbness/Burn Auditory Disturbances: 0-None Visual Disturbances: 0-None Headache: 2-Mild CIWA-Ar Total Score: 13 - Admission Criteria [facility]ASAS Guidelines: Admission for Medically Managed Detox: Requires at least one of the followin. CIWA greater than 12 2. Seizures within the past 24 hours 3. Delirium tremens within the past 24 hours 4. Hallucinations within the past 24 hours 5. Acute intervention needed for co occurring medical disorder 6. Acute intervention needed for co occurring psychiatric disorder 7. Severe withdrawal that cannot be handled at a lower level of care (continued vomiting, continued diarrhea, abnormal vital signs) requiring intravenous medication and/or fluids 8. Admission [facility] Chief Complaint: heroin and alcohol detox Allergies/Adverse Reactions: Allergies Allergy/AdvReac Type Severity Reaction Status Date / Time Penicillins Allergy Severe Hives Verified 11/12/18 15:32 History of Present Illness: Patient is a 52 yo F with a PMHx, D-fib (defibrillator), HTN, depression, bipolar, presenting here for alcohol and heroin detox. Plans on doing rehab afterwards. Drinks 6-10 big cans of beers a day and daily vodka (1/2-1pint) Last drink this morning. 1-16oz can this morning. no hx of seizures Last black out a few months ago. Last here in october for detox. Inhales 2-3 bags of heroin daily for a couple of years now. Last use this morning-almost 1 bag. Does not carry a narcan pen with her. Never over dosed. Was in the methadone program [id number]. She was up to 90mg at the time. 6-10 cigarettes a day. unemployed. homeless. - Ebola screening Have you traveled outside of the country in the last 21 days: No Have you had contact with anyone from an Ebola affected area: No - Review of Systems Constitutional: Loss of Appetite, Unintentional Wgt. Loss Respiratory: reports: Shortness of Breath Cardiac: denies: Chest Pain, Palpitations Patient History - Patient Medical History Hx Anemia: Yes (Not on medication) Hx Asthma: Yes (Not on medication) Hx Chronic Obstructive Pulmonary Disease (COPD): No Hx Cancer: No Hx Cardiac Disorders: Yes (h/o heart attack in 2009, cardiac arrhythmia) Hx Congestive Heart Failure: Yes (Not on medication) Hx Hypertension: Yes (Metoprolol and Lisinopril) Hx Hypercholesterolemia: No Hx Pacemaker: Yes (ICD, defib ppm in [place] 2009,2013) HX Cerebrovascular Accident: No Hx Seizures: No Hx Dementia: No Hx Diabetes: No Hx Gastrointestinal Disorders: No Hx Liver Disease: No Hx Genitourinary Disorders: No Hx Sexually Transmitted Disorders: No Hx Renal Disease (ESRD): No Hx Thyroid Disease: No Hx Human Immunodeficiency Virus (HIV): No (last 05/20 negative) Hx Hepatitis C: No Hx Depression: Yes (Not on medication) Hx Suicide Attempt: No (Denies suicidal ideation at this time) Hx Bipolar Disorder: Yes (DEPAKOTE/RISPERDAL) Hx Schizophrenia: No - Patient Surgical History Past Surgical History: Yes Hx Neurologic Surgery: No Hx Cataract Extraction: No Hx Cardiac Surgery: Yes (ICD 2009 and 2013) Hx Lung Surgery: No Hx Breast Surgery: No Hx Breast Biopsy: No Hx Abdominal Surgery: No Hx Appendectomy: No Hx Cholecystectomy: No Hx Genitourinary Surgery: No Hx Section: Yes (X 1 1991) Hx Orthopedic Surgery: No Anesthesia Reaction: No - PPD History Date: 07/21/17 Results: 0 mm - Reproductive History Last Menstrual Period: 08/06/18 - Smoking Cessation Smoking history: Current every day smoker Have you smoked in the past 12 months: Yes Aproximately how many cigarettes per day: 10 Cigars Per Day: 0 Hx Chewing Tobacco Use: No Initiated information on smoking cessation: Yes 'Breaking Loose' booklet given: 11/12/18 - Substances abused Alcohol Substance route: Oral Frequency: Daily Amount used: 6-12 16OZ CANS BEER Age of first use: 22 Date of last use: 11/12/18 Heroin Substance route: Inhalation Frequency: 3-6 times per week Amount used: $10 Age of first use: 22 Date of last use: 11/12/18 Cocaine Substance route: Smoking Frequency: 3-6 times per week Amount used: $20 Age of first use: 22 Date of last use: 11/11/18 Family Disease History - Family Disease History Family Disease History: Heart Disease: Father (ASTHMA, OF HEART DISEASE), Respiratory: Father, Other: Brother (ALCOHOLIC) Admission Physical Exam S - Vital Signs Vital Signs: Vital Signs - 24 hr 11/12/18 15:32 Temperature 97.9 F Pulse Rate 64 Respiratory 18 Rate Blood Pressure 128/75 - Physical General Appearance: Yes: No Apparent Distress Respiratory: Yes: No Respiratory Distress, No Accessory Muscle Use Cardiology: Yes: Regular Rate, S1, S2 Abdominal: Yes: Non Tender, Soft Extremities: No: Swelling - Diagnostic (1) Alcohol dependence with uncomplicated withdrawal Current Visit: No Status: Acute (2) Opiate withdrawal Current Visit: No Status: Acute (3) Renal insufficiency Current Visit: No Status: Acute (4) Substance-induced sleep disorder Current Visit: No Status: Acute (5) Asthma Current Visit: No Status: Chronic Qualifiers: Asthma severity: mild Asthma persistence: intermittent Asthma complication type: with status asthmaticus Qualified Code(s): J45.22 - Mild intermittent asthma with status asthmaticus (6) Bipolar II disorder Current Visit: No Status: Chronic (7) CAD (coronary artery disease) Current Visit: No Status: Chronic Qualifiers: Coronary Disease-Associated Artery/Lesion type: unspecified vessel or lesion type [place] vs. transplanted heart: unspecified whether [place] or transplanted heart Associated angina: with unspecified angina Qualified Code (s): I25.119 - Atherosclerotic heart disease of [place] coronary artery with unspecified angina pectoris (8) CHF (congestive heart failure) Current Visit: No Status: Chronic Qualifiers: Heart failure type: unspecified Heart failure chronicity: unspecified Qualified Code(s): I50.9 - Heart failure, unspecified (9) COPD (chronic obstructive pulmonary disease) Current Visit: No Status: Chronic (10) Cardiac arrhythmia Current Visit: No Status: Chronic Qualifiers: Arrhythmia type: paroxysmal tachycardia, unspecified Qualified Code(s): I47.9 - Paroxysmal tachycardia, unspecified; I47 - Paroxysmal tachycardia (11) ICD (implantable cardioverter-defibrillator) in place Current Visit: No Status: Chronic (12) Nicotine dependence Current Visit: No Status: Chronic Qualifiers: Nicotine product type: cigarettes Substance use status: uncomplicated Qualified Code(s): F17.210 - Nicotine dependence, cigarettes, uncomplicated (13) Bipolar disorder Current Visit: No Status: Ruled-out Cleared for Admission S - Detox or Rehab [facility] Level of Care: Medically Managed Breathalyzer - Breathalyzer Breathalyzer: 0 Urine Drug Screen - Test Device Lot number: [id number] Expiration date: 07/02/19 - Control Is test valid?: Yes - Results Drug screen NEGATIVE: No Urine drug screen results: LIZZETTE-Cocaine, MOP-Opiates, BZO-Benzodiazepines Inpatient Rehab Admission - Rehab Decision to Admit Inpatient rehab admission?: No
--- NOTE | 2018-11-12 17:21 | PN ---
Teaching Attending Note Name of Resident: Carlos Manuel Fajardo ATTENDING PHYSICIAN STATEMENT I saw and evaluated the patient. I reviewed the resident's note and discussed the case with the resident. I agree with the resident's findings and plan as documented. SUBJECTIVE: 52 yo female with h/o CAD, with defibrillator in place. Here for alcohol use and heroin use disorders. Also uses cocaine. Last here for detox- about 4 weeks ago. smokes cigarettes. OBJECTIVE: Vital Signs - 24 hr 11/12/18 15:32 Temperature 97.9 F Pulse Rate 64 Respiratory 18 Rate Blood Pressure 128/75 ASSESSMENT AND PLAN: AUD/OUD: detox protocols
[2018-11-12] MEDS ORDERED: MAG HYDROX/AL HYDROX/SIMETH 30 ML UNIT-DOSE CUP PO PRN (17:28)
[2018-11-12] MEDS ORDERED: cloNIDine HCL 0.1 MG TABLET PO PRN (17:28)
[2018-11-12] MEDS ORDERED: MENTHOL/PHENOL 1 EACH UD MM PRN (17:28)
[2018-11-12] MEDS ORDERED: MELATONIN 5 MG TABLETS PO PRN (17:28)
[2018-11-12] MEDS ORDERED: chlordiazePOXIDE HCL 10 MG CAPSULE PO PRN (17:28)
[2018-11-12] MEDS ORDERED: ACETAMINOPHEN 325 MG TABLET (FP) PO PRN ×2 (17:28)
[2018-11-12] MEDS ORDERED: IBUPROFEN 400 MG TABLET (FP) PO PRN (17:28)
[2018-11-12] MEDS ORDERED: BISMUTH SUBSALICYLATE 524 MG/30 ML UD PO PRN (17:28)
[2018-11-12] MEDS ORDERED: MAGNESIUM CITRATE 300 ML BOTTLE PO PRN (17:28)
[2018-11-12] MEDS ORDERED: hydrOXYzine PAMOATE 25 MG CAPSULE (FP) PO PRN (17:28)
[2018-11-12] MEDS ORDERED: MAGNESIUM HYDROX 2400MG/30ML ORAL SUSPENSION 30 ML CUP PO PRN (17:28)
[2018-11-12] MEDS ORDERED: METHADONE HCL 10 MG TABLET (FOR DETOX USE ONLY) PO ONE (18:30)
[2018-11-12] MEDS: THIAMINE HCL 100 MG TABLET (FP) PO SCH (22:21)
[2018-11-12] MEDS: chlordiazePOXIDE HCL 25 MG CAPSULE PO SCH (22:21)
[2018-11-12] MEDS: BUDESONIDE/FORMETEROL FUMARATE 80/4.5 mcg INHALER IH SCH (22:21)
[2018-11-12] MEDS: METHOCARBAMOL 500 MG TABLET PO PRN (22:23)
[2018-11-12] MEDS: NICOTINE POLACRILEX 2 MG GUM BUC PRN (22:24)
[2018-11-13] MEDS: chlordiazePOXIDE HCL 25 MG CAPSULE PO SCH ×3 (05:52→22:27)
--- NOTE | 2018-11-13 09:22 | CONSULT ---
[facility] Psychiatric Consult - Data Date of interview: 11/13/18 Admission source: [facility] Identifying data: Patient is a 52 year old single female, mother of five, unemployed, homeless, and is supported by [facility]. This is one of multiple admissions for patient. Patient admitted to for alcohol and opiate dependence. Substance Abuse History: Smoking Cessation. Smoking history: Current every day smoker. Have you smoked in the past 12 months: Yes. Aproximately how many cigarettes per day: 10. Cigars Per Day: 0. Hx Chewing Tobacco Use: No. Initiated information on smoking cessation: Yes. 'Breaking Loose' booklet given : 11/12/18. - Substances abused. Alcohol. Substance route: Oral. Frequency: Daily. Amount used: 6-12 16OZ CANS BEER. Age of first use: 22. Date of last use: 11/12/18. Heroin. Substance route: Inhalation. Frequency : 3-6 times per week. Amount used: $10. Age of first use: 22. Date of last use: 11/12/18. Cocaine. Substance route: Smoking. Frequency: 3-6 times per week. Amount used: $20. Age of first use: 22. Date of last use: 11/11/18 Medical History: Significant for anemia, bronchial asthma, hypertension, dyslipidemia, arrhythmia(ICD implantation), coronary artery disease history of myocardial infarction in 2009, section (1991) Psychiatric History: Patient's first psychiatric contact was in 1996 after experiencing a nervous breakdown at [facility] which led a hospitalization at [facility]. Reports being diagnosed with depression and was prescribed psychotropic medications. Patient is a poor historian. Ms. Pedraza reports additional hospitalizations at [facility] and [facility]. Only recalls accepting haldol. As per Dr. Moise's note on patient reported a diagnoses of bipolar disorder and additional hospitalizations at [facility], [facility], [facility], and [facility]. Reports that she was at [facility] from February 2014 to May 2014. She was discharged on Depakote and Risperdal and referred to transitional housing on [facility]. She said that she was there for 3-4 months and received psychiatric treatment while there. She has also received psychiatric treatment in 2016 while a resident at [facility] in [facility]. Patient informed of provider's previous entry and then recalled accepting risperdal and depakote. She reports history of noncompliance after discharge from detox/rehab and psychiatric facilites. Patient is not followed by a psychiatric provider. At present patient denies auditory/visual hallucinations, suicidal/homicidal ideation. No manic, depressive or psychotic symptoms present. Physical/Sexual Abuse/Trauma History: Denies. Mental Status Exam - Mental Status Exam Alert and Oriented to: Time, Place, Person Cognitive Function: Good Patient Appearance: Well Groomed Mood: Euthymic Affect: Mood Congruent Patient Behavior: Cooperative Speech Pattern: Appropriate Voice Loudness: Normal Thought Process: Goal Oriented Thought Disorder: Not Present Hallucinations: Denies Suicidal Ideation: Denies Homicidal Ideation: Denies Insight/Judgement: Poor Sleep: Fair Appetite: Fair Muscle strength/Tone: Normal Gait/Station: Normal Psychiatric Findings - Problem List ([place] 1, 2,3) (1) Opiate dependence Current Visit: Yes Status: Acute (2) Alcohol dependence with uncomplicated withdrawal Current Visit: Yes Status: Acute (3) Schizoaffective disorder Current Visit: Yes Status: Chronic Comment: By history. Asymptomatic. Non compliant with medications. (4) Cocaine dependence Current Visit: Yes Status: Acute Qualifiers: Substance use status: uncomplicated Qualified Code(s): F14.20 - Cocaine dependence, uncomplicated - Initial Treatment Plan Initial Treatment Plan: Psychoeducation provided. Detoxification in progress. Will order Risperdal 1mg BID. Benefits and side effects discussed. Verbal consent given.
--- NOTE | 2018-11-13 09:47 | PN ---
[facility] CIWA - CIWA Score Nausea/Vomitin-Mild Nausea/No Vomiting Muscle Tremors: 3 Anxiety: 3 Agitation: 2 Paroxysmal Sweats: 2 Orientation: 0-Oriented Tacttile Disturbances: 0-None Auditory Disturbances: 0-None Visual Disturbances: 0-None Headache: 0-None Present CIWA-Ar Total Score: 11 S COWS - Scale Resting Pulse: 0= [place] 80 or Below Sweatin= Chills/Flushing Restless Observation: 0= Sits Still Pupil Size: 0= Normal to Room Light Bone or Joint Aches: 1= Mild Discomfort Runny Nose/ Eye Tearin= Nasal Congestion GI Upset > 30mins: 2= Nausea/Diarrhea Tremor Observation of Outstretched Hands: 2= Slight Tremor Visible Yawning Observation: 0= None Anxiety or Irritability: 1=Feels Anxious/Irritable Goose Flesh Skin: 3=Piloerection COWS Score: 11 [facility] Progress Note (SOAP) Subjective: 52 years old female [facility] was admitted on 11/12/18 for alcohol and opiate withdrawal sx management doing well with librium and methadone detox regimen resting on bed comfortably feeling tired Objective: 11/13/18 09:48 Vital Signs Temperature 97.2 F L 11/13/18 09:17 Pulse Rate 66 11/13/18 09:17 Respiratory Rate 18 11/13/18 09:17 Blood Pressure 135/89 11/13/18 09:17 O2 Sat by Pulse Oximetry (%) Laboratory Last Values POC Urine HCG, Qual Negative 11/12/18 16:38 11/13/18 09:48 lab pending Assessment: 11/13/18 09:48 alcohol and opiate withdrawal sx Plan: continue librium and methadone detox regimen
[2018-11-13 09:57] LABS: HEMATOCRIT 32.4 % (32.4-45.2); HEMOGLOBIN 10.5 GM/dL (10.7-15.3); MCH 32.7 pg (25.7-33.7); MCHC 32.5 g/dl (32.0-36.0); MEAN CELL VOLUME 100.5 fl (80-96); MEAN PLT VOLUME 9.8 fl (7.5-11.1); PLATELET COUNT 203 K/MM3 (134-434); RBC 3.22 M/mm3 (3.60-5.2); RDW 15.6 % (11.6-15.6); WHITE BLOOD COUNT 4.3 K/mm3 (4.0-10.0)
[2018-11-13] MEDS ORDERED: METHADONE HCL 5 MG TABLET (FOR DETOX USE ONLY) PO ONE (10:00)
[2018-11-13 10:06] LABS: ALBUMIN 3.1 g/dl (3.4-5.0); BILIRUBIN,TOTAL 0.2 mg/dL (0.2-1); BLOOD UREA NITROGEN 45.2 mg/dL (7-18); CALCIUM 8.9 mg/dL (8.5-10.1); CREATININE 1.7 mg/dL (0.55-1.3); POTASSIUM 4.8 mmol/L (3.5-5.1); TOT PROT 6.2 g/dl (6.4-8.2)
[2018-11-13] MEDS: ASPIRIN 81 MG CHEWABLE TABLETS PO SCH (10:22)
[2018-11-13] MEDS: PRENATAL VITAMINS W/ FOLIC ACID TABLET (FP) PO SCH (10:22)
[2018-11-13] MEDS: NICOTINE POLACRILEX 2 MG GUM BUC PRN (10:23)
[2018-11-13] MEDS: risperiDONE 1 MG TABLET (FP) PO SCH ×2 (10:25→22:27)
[2018-11-13] MEDS: BUDESONIDE/FORMETEROL FUMARATE 80/4.5 mcg INHALER IH SCH ×2 (10:30→22:27)
[2018-11-13] MEDS: THIAMINE HCL 100 MG TABLET (FP) PO SCH (22:27)
[2018-11-14] MEDS: chlordiazePOXIDE 5 MG CAPSULE PO SCH ×3 (05:39→22:44)
[2018-11-14] MEDS ORDERED: METHADONE HCL 10 MG TABLET (FOR DETOX USE ONLY) PO ONE (10:00)
[2018-11-14] MEDS: PRENATAL VITAMINS W/ FOLIC ACID TABLET (FP) PO SCH (10:27)
[2018-11-14] MEDS: BUDESONIDE/FORMETEROL FUMARATE 80/4.5 mcg INHALER IH SCH ×2 (10:27→22:16)
[2018-11-14] MEDS: risperiDONE 1 MG TABLET (FP) PO SCH ×2 (10:27→22:44)
[2018-11-14] MEDS: ASPIRIN 81 MG CHEWABLE TABLETS PO SCH (10:29)
[2018-11-14] MEDS: NICOTINE POLACRILEX 2 MG GUM BUC PRN ×2 (10:29→22:46)
--- NOTE | 2018-11-14 14:33 | PN ---
S CIWA - CIWA Score Nausea/Vomitin-No Nausea/No Vomiting Muscle Tremors: None Anxiety: 3 Agitation: 1-Slight > Activity Paroxysmal Sweats: 2 Orientation: 0-Oriented Tacttile Disturbances: 1-Very Mild Itch/Numbness Auditory Disturbances: 0-None Visual Disturbances: 2-Mild Sensitivity Headache: 0-None Present CIWA-Ar Total Score: 9 S COWS - Scale Resting Pulse: 0= [place] 80 or Below Sweatin= Chills/Flushing Restless Observation: 1= Difficult to Sit Still Pupil Size: 0= Normal to Room Light Bone or Joint Aches: 1= Mild Discomfort Runny Nose/ Eye Tearin= None GI Upset > 30mins: 0= None Tremor Observation of Outstretched Hands: 0= None Yawning Observation: 1= 1-2x During Session Anxiety or Irritability: 2=Irritable/Anxious Goose Flesh Skin: 0=Smooth Skin COWS Score: 6 S Progress Note (SOAP) Subjective: Anxious, Fatigue. Objective: PATIENT A & O X 3, OBSERVED AMBULATING ON DETOX UNIT UNASSISTED. IN NO ACUTE DISTRESS. 11/14/18 14:35 Vital Signs Temperature 97.6 F 11/14/18 13:24 Pulse Rate 73 11/14/18 13:24 Respiratory Rate 18 11/14/18 13:24 Blood Pressure 174/100 H 11/14/18 13:24 O2 Sat by Pulse Oximetry (%) Laboratory Tests 11/12/18 11/13/18 11/13/18 16:38 08:00 08:00 WBC 4.3 RBC 3.22 L Hgb 10.5 L Hct 32.4 D MCV 100.5 H MCH 32.7 MCHC 32.5 RDW 15.6 Plt Count 203 D MPV 9.8 Sodium 143 Potassium 4.8 Chloride 111 H Carbon Dioxide 25 Anion Gap 7 L BUN 45.2 H Creatinine 1.7 H Est GFR (CKD-EPI)AfAm 40.05 Est GFR (CKD-EPI)NonAf 34.56 Random Glucose 88 Calcium 8.9 Total Bilirubin 0.2 AST 24 ALT 21 Alkaline Phosphatase 120 H Total Protein 6.2 L Albumin 3.1 L POC Urine HCG, Qual Negative RPR Titer 11/13/18 08:00 WBC RBC Hgb Hct MCV MCH MCHC RDW Plt Count MPV Sodium Potassium Chloride Carbon Dioxide Anion Gap BUN Creatinine Est GFR (CKD-EPI)AfAm Est GFR (CKD-EPI)NonAf Random Glucose Calcium Total Bilirubin AST ALT Alkaline Phosphatase Total Protein Albumin POC Urine HCG, Qual RPR Titer Nonreactive LABS NOTED. Assessment: 11/14/18 14:40 WITHDRAWAL SYMPTOMS. HYEPRTENSION. AZOTEMIA. Plan: CONTINUE DETOX. D/C MAGNESIUM-CONTAINING MEDS. FOR ABNORMAL ADMISSION RENAL LAB VALUES. BMP ORDERED FOR TOMORROW TO SEE IF ANY CHANGE FROM ABNORMAL ADMISSION LAB VALUES. BP NOTED TO BE ELEVATED. PATIENT REPORTED HISTORY OF HYPERTENSION AND OF OUTPATIENT PRESCRIPTION FOR BOTH LISINOPRIL AND FOR TOPROL XL ON ADMISSION TO DETOX. BOTH MEDICATIONS ORDERED. WILL CONTINUE TO MONITOR BP.
[2018-11-14] MEDS ORDERED: metoPROLOL SUCCINATE 25 MG TAB.SR.24H (FP) PO ONE (15:16)
[2018-11-14] MEDS: LISINOPRIL 5 MG TABLET (FP) PO SCH (15:51)
[2018-11-14] MEDS: ALBUTEROL SO4 8 GM HFA INHALER IH PRN (17:55)
[2018-11-14] MEDS: metoPROLOL SUCCINATE 25 MG TAB.SR.24H (FP) PO SCH (22:44)
[2018-11-14] MEDS: THIAMINE HCL 100 MG TABLET (FP) PO SCH (22:44)
[2018-11-15] MEDS ORDERED: chlordiazePOXIDE HCL 10 MG CAPSULE PO PRN
[2018-11-15] MEDS: chlordiazePOXIDE HCL 10 MG CAPSULE PO SCH ×3 (05:55→21:04)
[2018-11-15] MEDS: NICOTINE POLACRILEX 2 MG GUM BUC PRN ×2 (05:59→19:04)
[2018-11-15] MEDS ORDERED: METHADONE HCL 5 MG TABLET (FOR DETOX USE ONLY) PO ONE (06:00)
[2018-11-15] MEDS: ALBUTEROL SO4 8 GM HFA INHALER IH PRN ×3 (06:29→17:02)
[2018-11-15] MEDS ORDERED: cloNIDine HCL 0.1 MG TABLET PO ONE (07:13)
--- NOTE | 2018-11-15 07:17 | PN ---
[facility] Progress Note Note: Patient's blood pressure this morning is B/P 157/114. Patient is asymptomatic Vital Signs Temperature 97.1 F L 11/15/18 06:30 Pulse Rate 80 11/15/18 06:30 Respiratory Rate 18 11/15/18 06:30 Blood Pressure 157/114 H 11/15/18 06:30 O2 Sat by Pulse Oximetry (%) ACtion: Clonidine 0.1mg tablet oral ordered
[2018-11-15] MEDS: risperiDONE 1 MG TABLET (FP) PO SCH ×2 (10:48→23:05)
[2018-11-15] MEDS: PRENATAL VITAMINS W/ FOLIC ACID TABLET (FP) PO SCH (10:48)
[2018-11-15] MEDS: metoPROLOL SUCCINATE 25 MG TAB.SR.24H (FP) PO SCH ×2 (10:48→23:05)
[2018-11-15] MEDS: ASPIRIN 81 MG CHEWABLE TABLETS PO SCH (10:48)
[2018-11-15] MEDS: guaiFENesin 600 MG TABLET.ER (FP) PO SCH ×2 (10:49→23:06)
[2018-11-15] MEDS: BUDESONIDE/FORMETEROL FUMARATE 80/4.5 mcg INHALER IH SCH ×2 (10:49→23:05)
[2018-11-15] MEDS: LISINOPRIL 5 MG TABLET (FP) PO SCH (10:50)
[2018-11-15 12:15] LABS: BLOOD UREA NITROGEN 33.7 mg/dL (7-18); CREATININE 1.2 mg/dL (0.55-1.3); POTASSIUM 4.2 mmol/L (3.5-5.1)
--- NOTE | 2018-11-15 18:09 | PN ---
S CIWA - CIWA Score Nausea/Vomitin-No Nausea/No Vomiting Muscle Tremors: None Anxiety: 3 Agitation: 2 Paroxysmal Sweats: No Perspiration Orientation: 0-Oriented Tacttile Disturbances: 1-Very Mild Itch/Numbness Auditory Disturbances: 0-None Visual Disturbances: 2-Mild Sensitivity Headache: 0-None Present CIWA-Ar Total Score: 8 S COWS - Scale Resting Pulse: 0= [place] 80 or Below Sweatin= No chills or Flushing Restless Observation: 1= Difficult to Sit Still Pupil Size: 0= Normal to Room Light Bone or Joint Aches: 0= None Runny Nose/ Eye Tearin= None GI Upset > 30mins: 0= None Tremor Observation of Outstretched Hands: 0= None Yawning Observation: 1= 1-2x During Session Anxiety or Irritability: 2=Irritable/Anxious Goose Flesh Skin: 0=Smooth Skin COWS Score: 4 S Progress Note (SOAP) Subjective: Anxious, Fatigue. Objective: PATIENT A & O X 3, OBSERVED AMBULATING ON DETOX UNIT UNASSISTED. IN NO ACUTE DISTRESS. 11/15/18 18:10 Vital Signs Temperature 101 F H 11/15/18 17:42 Pulse Rate 92 H 11/15/18 17:42 Respiratory Rate 18 11/15/18 17:42 Blood Pressure 168/116 H 11/15/18 17:42 O2 Sat by Pulse Oximetry (%) Laboratory Tests 11/12/18 11/13/18 11/13/18 16:38 08:00 08:00 WBC 4.3 RBC 3.22 L Hgb 10.5 L Hct 32.4 D MCV 100.5 H MCH 32.7 MCHC 32.5 RDW 15.6 Plt Count 203 D MPV 9.8 Sodium 143 Potassium 4.8 Chloride 111 H Carbon Dioxide 25 Anion Gap 7 L BUN 45.2 H Creatinine 1.7 H Est GFR (CKD-EPI)AfAm 40.05 Est GFR (CKD-EPI)NonAf 34.56 Random Glucose 88 Calcium 8.9 Total Bilirubin 0.2 AST 24 ALT 21 Alkaline Phosphatase 120 H Total Protein 6.2 L Albumin 3.1 L POC Urine HCG, Qual Negative RPR Titer 11/13/18 11/15/18 08:00 07:50 WBC RBC Hgb Hct MCV MCH MCHC RDW Plt Count MPV Sodium 140 Potassium 4.2 Chloride 108 H Carbon Dioxide 24 Anion Gap 9 BUN 33.7 H Creatinine 1.2 Est GFR (CKD-EPI)AfAm 61.03 Est GFR (CKD-EPI)NonAf 52.65 Random Glucose 114 H Calcium 9.0 Total Bilirubin AST ALT Alkaline Phosphatase Total Protein Albumin POC Urine HCG, Qual RPR Titer Nonreactive LABS NOTED. RESULTS OF BMP DRAWN EALRIER TODAY NOTED. REDUCTIONS NOTED IN BOTH CREATININE AND BUN IN COMPARISON TO ADMISSION CREATININE LEVELS. REPEAT GFR INCREASED IN COMPARISON TO DETOX ADMISSION GFR LEVEL. PATIENT HAS BEEN ANEMIC AND HAS HAD ABNORMAL RENAL LAB VALUES ON PREVIOUS ADMISSIONS. 11/15/18 18:11 Assessment: 11/15/18 18:10 WITHDRAWAL SYMPTOMS. AZOTEMIA. HYPERTENSION. ANMEIA. 11/15/18 18:12 Plan: CONTINUE DETOX. PATIENT IS CURRENTLY RECEIVING DAILY MVI CONTAINING B VITAMINS AND IRON WHILE ADMITTED FOR DETOX. PATIENT SCHEDULED FOR D/C FROM DETOX UNIT TOMORROW.
[2018-11-15] MEDS: METHOCARBAMOL 500 MG TABLET PO PRN (18:38)
[2018-11-15] MEDS ORDERED: ALBUTEROL SO4 2.5/IPRATROPIUM 0.5 INH SOL 3 ML VIAL.NEB. NEB ONE (19:04)
[2018-11-15] MEDS ORDERED: guaiFENesin/D-METHORPHAN HB 10 ML UNIT-DOSE CUPS PO PRN (19:07)
--- NOTE | 2018-11-15 19:09 | PN ---
[facility] Progress Note Note: coughing,yellowish mucous,expiratory wheezing,pulse oximeter 97% acute bronchitis treatment duoneb nebulizer treatment continue albuterol inhaler start on levaquin 500 mgs po now then daily for 7 days fluid close monitoring
[2018-11-15] MEDS: ALBUTEROL SO4 2.5/IPRATROPIUM 0.5 INH SOL 3 ML VIAL.NEB. NEB PRN (19:13)
[2018-11-15 19:43] VITALS: TEMP 99.5
--- NOTE | 2018-11-15 20:07 | PN ---
[facility] Progress Note Note: o2 by nasal canula 4 l/min,close monitoring,case endorse to Reanna THIMBLE PRESS OPERATOR
[2018-11-15] MEDS: THIAMINE HCL 100 MG TABLET (FP) PO SCH (23:05)
[2018-11-16] MEDS: ALBUTEROL SO4 8 GM HFA INHALER IH PRN (01:25)
[2018-11-16] MEDS: NICOTINE POLACRILEX 2 MG GUM BUC PRN (01:26)
[2018-11-16 01:47] VITALS: PULSE 101
[2018-11-16] MEDS: ALBUTEROL SO4 2.5/IPRATROPIUM 0.5 INH SOL 3 ML VIAL.NEB. NEB PRN (01:52)
--- NOTE | 2018-11-16 02:02 | PN ---
[facility] Progress Note Note: Patient is complaining of difficulty breathing, de-saturating, agitated and uncomfortable. She is on oxygen at 4 liters per minute. Duoneb and Albuterol administered respectively as ordered Assessment: General: Patient is acute respiratory distress, reports difficulty breathing Vital Signs Temperature 99.5 F 11/16/18 01:47 Pulse Rate 101 H 11/16/18 01:47 Respiratory Rate 20 11/16/18 01:47 Blood Pressure 179/122 H 11/16/18 01:47 O2 Sat by Pulse Oximetry (%) 87% O2 at 4% Vital Signs 11/16/18 11/16/18 11/16/18 01:47 02:05 03:30 Temperature 99.5 F Pulse Rate 101 H Respiratory 20 23 H 18 Rate Blood Pressure 179/122 H 181/123 H Nose : Congested Skin: pale, cool and diaphoretic Head: Normocephalic Eyes: pupils PERRLA and EOMI Mouth: Dry mucous membrane Neck; Supple. Trachea midline. No bruits heard bilateraly Chest:Retractions, accessory muscle use, wheezes, pleural friction rub, dyspnea , orthopnea Abdomen: Soft, non distended, non palpable mass Extrems: No clubbing, cynosis or petechiae Neuro: alert and oriented x 3. No LOC. No focal deficits Action: Patient is to be transferred to [facility] emergency room for evaluation. Endorsed to Dr. Barber
[2018-11-16 03:57] VITALS: BP 181/123
[2018-11-16] MEDS ORDERED: chlordiazePOXIDE HCL 10 MG CAPSULE PO ONE (05:00)
[2018-11-16] MEDS: PRENATAL VITAMINS W/ FOLIC ACID TABLET (FP) PO SCH (11:04)
[2018-11-16] MEDS: ASPIRIN 81 MG CHEWABLE TABLETS PO SCH (11:04)
[2018-11-16] MEDS: guaiFENesin 600 MG TABLET.ER (FP) PO SCH (11:04)
[2018-11-16] MEDS: risperiDONE 1 MG TABLET (FP) PO SCH (11:05)
[2018-11-16] MEDS: BUDESONIDE/FORMETEROL FUMARATE 80/4.5 mcg INHALER IH SCH (11:05)
[2018-11-16] MEDS: metoPROLOL SUCCINATE 25 MG TAB.SR.24H (FP) PO SCH (11:05)
[2018-11-16] MEDS: LISINOPRIL 5 MG TABLET (FP) PO SCH (11:05)
== END 2018-11-16 18:30 | disposition short-term general hospital (02) | DRG 773 ==
LOC: YASAS 12:37 → Y3N 17:27
PROVIDERS: ADMIT Surgery; ATTEND Surgery
PROC: HZ2ZZZZ Detoxification Services for Substance Abuse Treatment (ICD-10-PCS; principal; 2018-11-12)
DX: F10.230 Alcohol dependence with withdrawal, uncomplicated (principal); F11.23 Opioid dependence with withdrawal; F14.20 Cocaine dependence, uncomplicated; F17.210 Nicotine dependence, cigarettes, uncomplicated; F31.9 Bipolar disorder, unspecified; F25.9 Schizoaffective disorder, unspecified; I25.10 Atherosclerotic heart disease of native coronary artery without angina pectoris; I11.0 Hypertensive heart disease with heart failure; I50.9 Heart failure, unspecified; I49.9 Cardiac arrhythmia, unspecified; J20.9 Acute bronchitis, unspecified; D64.9 Anemia, unspecified; J45.909 Unspecified asthma, uncomplicated; Z95.810 Presence of automatic (implantable) cardiac defibrillator; Z88.0 Allergy status to penicillin
CPT/HCPCS: 36415; 80048; 80053; 81025; 85027; 86593; 94640; J0735; J2794

== ENCOUNTER 2018-11-16 02:54 | Inpatient (IN) | payer OTHER ==
--- NOTE | 2018-11-16 03:10 | PDOC ---
Attending Attestation - Resident Resident Name: Sammie Jang - ED Attending Attestation I have performed the following: I have examined & evaluated the patient, The case was reviewed & discussed with the resident, I agree w/resident's findings & plan - HPI HPI: 11/16/18 05:24 Pt sent from [facility] for SOB and pulsox that is desturating and 88% She has cardiomegaly; possible pneumonia and likely primary lung injury from her drugs and smokes. - Physicial Exam PE: 11/16/18 05:25 Pt has rales on lungs Pt appeas weak and dehydrated; Pt is abfebrile. Agree with resident exam - Medical Decision Making 11/16/18 07:08 Signed out to the AM doc Pt doind well on BiPAP>> She has elevated BNP and she has effusions and possible infiltrates on CXR.
[2018-11-16] MEDS ORDERED: FUROSEMIDE 100 MG/10 ML INJECTABLE VIAL IVPB ONE (03:11)
[2018-11-16 04:31] LABS: ALBUMIN 3.4 g/dl (3.4-5.0); BILIRUBIN,TOTAL 0.5 mg/dL (0.2-1); BLOOD UREA NITROGEN 27.6 mg/dL (7-18); CALCIUM 9.4 mg/dL (8.5-10.1); CREATININE 1.2 mg/dL (0.55-1.3); TOT PROT 7.5 g/dl (6.4-8.2)
[2018-11-16 04:45] LABS: POTASSIUM 5.7 mmol/L (3.5-5.1)
[2018-11-16 04:51] LABS: EOS % 0.4 % (0-4.5); HEMATOCRIT 30.5 % (32.4-45.2); HEMOGLOBIN 9.9 GM/dL (10.7-15.3); LYMPH % 12.4 % (8-40); MCH 32.1 pg (25.7-33.7); MCHC 32.6 g/dl (32.0-36.0); MEAN CELL VOLUME 98.7 fl (80-96); MEAN PLT VOLUME 9.9 fl (7.5-11.1); NEUT % 78.2 % (42.8-82.8); PLATELET COUNT 209 K/MM3 (134-434); RBC 3.09 M/mm3 (3.60-5.2); RDW 15.1 % (11.6-15.6); WHITE BLOOD COUNT 10.6 K/mm3 (4.0-10.0)
[2018-11-16 05:02] LABS: ALBUMIN 3.1 g/dl (3.4-5.0); BILIRUBIN,TOTAL 0.4 mg/dL (0.2-1); BLOOD UREA NITROGEN 26.2 mg/dL (7-18); CALCIUM 9.3 mg/dL (8.5-10.1); CREATININE 1.1 mg/dL (0.55-1.3); POTASSIUM 4.5 mmol/L (3.5-5.1); TOT PROT 6.7 g/dl (6.4-8.2)
--- NOTE | 2018-11-16 05:25 | PDOC ---
History of Present Illness - General Chief Complaint: Shortness of Breath Stated Complaint: DIFFICULTY BREATHING Time Seen by Provider: 11/16/18 03:05 - History of Present Illness Initial Comments: Zaira Pedraza is a 52yo woman with a PMH of CHF, COPD, polysubstance abuse who prsents from detox with worsening SOB over the past few days. She states that she has been using her inhaler with some improvement, but she becomes extremely short of breathing whenever she lays down. She was noted to be hypoxic at detox and was sent to the ED. Ms Pedraza was started on CPAP by EMS with improvement in her sats. She does report needing BiPAP during hospitalizations multiple times in the past. Past History - Past Medical History Allergies/Adverse Reactions: Allergies Allergy/AdvReac Type Severity Reaction Status Date / Time Penicillins Allergy Severe Hives Verified 11/16/18 03:05 Home Medications: Ambulatory Orders Aspirin 81 mg PO DAILY 06/27/18 Albuterol Sulfate Inhaler - [Ventolin HFA Inhaler -] 2 inh PO Q4H PRN #1 inhaler 07/01/18 Budesonide/Formeterol Fumarate [SYMBICORT 80/4.5mcg -] 12 puff IH BID #1 inhaler 07/01/18 Lisinopril 5 mg PO DAILY #30 tablet 07/01/18 Metoprolol Succinate 25 mg PO BID #60 tab.er.24h 07/01/18 Anemia: Yes (Not on medication) Asthma: Yes (Not on medication) Cancer: No Cardiac Disorders: Yes (h/o heart attack in 2009, cardiac arrhythmia) CVA: No COPD: No CHF: Yes (Not on medication) Dementia: No Diabetes: No GI Disorders: No Disorders: No HTN: Yes (Metoprolol and Lisinopril) Hypercholesterolemia: No Kidney Stones: No Liver Disease: No Seizures: No Thyroid Disease: No - Surgical History Abdominal Surgery: No Appendectomy: No Cardiac Surgery: Yes (ICD 2010 and 2014) Cholecystectomy: No Lung Surgery: No Neurologic Surgery: No Orthopedic Surgery: No - Reproductive History PID: No - Suicide/Smoking/Psychosocial Hx Smoking History: Unknown if ever smoked Have you smoked in the past 12 months: Yes Number of Cigarettes Smoked Daily: 10 Cigars Per Day: 0 'Breaking Loose' booklet given: 11/12/18 Hx Alcohol Use: Yes Drug/Substance Use Hx: Yes (heroine) Substance Use Type: Alcohol, Cocaine Hx Substance Use Treatment: Yes Review of Systems - Review of Systems Comments:: General: No fevers, no chills, no weight or appetite change, no malaise HEENT: No changes in vision, no changes in hearing, no congestion, no sore throat CV: No chest pain, no palpitations, no LE edema, h/o CHF Pulm: See HPI GI: No nausea or vomiting, no change in bowel habits, no melena : No frequency, no urgency, no dysuria Musc: No back pain, no joint swelling, no recent injury Skin: No rash, no lesions, no erythema Endo: No excessive thirst, no heat/cold intolerance Heme: No unusual bruising or bleeding, no swollen glands Neuro: No syncope, no numbness/tingling, no focal weakness Vasc: No claudication Psych: No recent change in mood, no SI or HI *Physical Exam - Vital Signs Last Vital Signs Temp Pulse Resp BP Pulse Ox 98.3 F 90 20 150/90 100 11/16/18 03:03 11/16/18 03:03 11/16/18 03:03 11/16/18 03:03 11/16/18 03:19 - Physical Exam Comments: General: Uncomfortable, moderate distress HEENT: PERRL, EOMI, MMM. BiPAP in place. Cards: RRR, no murmur appreciated Pulm: Labored breathing, on BiPAP. Lungs clear b/l Abd: Soft, nontender, nondistended Ext: Atraumatic. No LE edema. ROM intact. WWP Skin: Normal color, no rashes or lesions Neuro: A&Ox3, CN grossly intact, normal speech, motor/sensory grossly intact and symmetric Psych: Mood appropriate to situation ED Treatment Course - LABORATORY CBC & Chemistry Diagram: 11/16/18 04:20 11/16/18 04:20 - ADDITIONAL ORDERS Additional order review: Laboratory Results 11/16/18 11/16/18 11/16/18 04:50 04:20 03:30 Anticoagulation Therapy Puncture Site Patient Temperature ABG pH ABG pCO2 at Pt Temp ABG pO2 at Pt Temp ABG HCO3 ABG O2 Sat (Measured) ABG O2 Content ABG Base Excess Prasanth Test O2 Delivery Device Oxygen Flow Rate Vent Mode Vent Rate Mechanical Rate PEEP Pressure Support Vent Sodium 137 Potassium 4.5 Chloride 101 Carbon Dioxide 30 Anion Gap 6 L BUN 26.2 H Creatinine 1.1 Est GFR (CKD-EPI)AfAm 67.79 Est GFR (CKD-EPI)NonAf 58.49 Random Glucose 96 Lactic Acid 0.8 Calcium 9.3 Magnesium Total Bilirubin 0.4 AST 138 H ALT 128 H Alkaline Phosphatase 99 Creatine Kinase Creatine Kinase Index CK-MB (CK-2) Troponin I B-Natriuretic Peptide 9541.2 H Total Protein 6.7 Albumin 3.1 L 11/16/18 11/16/18 11/16/18 03:30 03:30 03:30 Anticoagulation Therapy Puncture Site Patient Temperature ABG pH ABG pCO2 at Pt Temp ABG pO2 at Pt Temp ABG HCO3 ABG O2 Sat (Measured) ABG O2 Content ABG Base Excess Prsaanth Test O2 Delivery Device Oxygen Flow Rate Vent Mode Vent Rate Mechanical Rate PEEP Pressure Support Vent Sodium 136 Potassium 5.7 H Chloride 100 Carbon Dioxide 28 Anion Gap 7 L BUN 27.6 H Creatinine 1.2 Est GFR (CKD-EPI)AfAm 61.03 Est GFR (CKD-EPI)NonAf 52.65 Random Glucose 100 Lactic Acid Calcium 9.4 Magnesium 1.9 Total Bilirubin 0.5 AST 184 H ALT 146 H Alkaline Phosphatase 111 Creatine Kinase 161 Creatine Kinase Index 0.8 CK-MB (CK-2) 1.3 Troponin I < 0.02 B-Natriuretic Peptide Total Protein 7.5 Albumin 3.4 11/16/18 03:25 Anticoagulation Therapy Cancelled Puncture Site Cancelled Patient Temperature Cancelled ABG pH Cancelled ABG pCO2 at Pt Temp Cancelled ABG pO2 at Pt Temp Cancelled ABG HCO3 Cancelled ABG O2 Sat (Measured) Cancelled ABG O2 Content Cancelled ABG Base Excess Cancelled Prasanth Test Cancelled O2 Delivery Device Cancelled Oxygen Flow Rate Cancelled Vent Mode Cancelled Vent Rate Cancelled Mechanical Rate Cancelled PEEP Cancelled Pressure Support Vent Cancelled Sodium Potassium Chloride Carbon Dioxide Anion Gap BUN Creatinine Est GFR (CKD-EPI)AfAm Est GFR (CKD-EPI)NonAf Random Glucose Lactic Acid Calcium Magnesium Total Bilirubin AST ALT Alkaline Phosphatase Creatine Kinase Creatine Kinase Index CK-MB (CK-2) Troponin I B-Natriuretic Peptide Total Protein Albumin 11/16/18 11/16/18 04:20 03:30 RBC 3.09 L Cancelled MCV 98.7 H Cancelled MCHC 32.6 Cancelled RDW 15.1 Cancelled MPV 9.9 Cancelled Neutrophils % 78.2 D Cancelled Lymphocytes % 12.4 D Cancelled Monocytes % 8.0 Cancelled Eosinophils % 0.4 D Cancelled Basophils % 1.0 Cancelled - RADIOLOGY Radiology Studies Ordered: Category Date Time Status CHEST X-RAY PORTABLE* [RAD] Stat Radiology 11/16/18 03:12 Taken - Medications Given in the ED: ED Medications Discontinued Medications Generic Name Dose Route Start Last Admin Trade Name Jerilyn PRN Reason Stop Dose Admin Furosemide 40 mg 11/16/18 03:11 11/16/18 04:29 Lasix Injection - IVPB 11/16/18 03:12 40 mg ONCE ONE Administration Medical Decision Making - Medical Decision Making 11/16/18 05:23 Zaira Pedraza is a 52yo woman with a PMH of CHF, COPD, polysubstance abuse who presents from detox with worsening SOB, orthopnea, and hypoxia to the 80's tonight. She endorses needing CPAP in the past for difficulty breathing. - Likely CHF exacerbation v COPD exacerbation. CHF more likely given report of orthopnea, minimal improvement w/ nebs - CBC, cmp, BNP, EKG, CXR, ABG - Continue BiPAP - Pt difficult stick, multiple attempts for labs 11/16/18 05:26 - Labs reviewed. Notable for BNP 9500 - EKG w/ NSR, LVH w/ strain pattern. No acute ST changes - ABG clotted, to be resent - 40mg IV lasix - Admit to medicine for CHF exacerbation 11/16/18 07:41 - Sign out given to Dr Travis, will admit to medicine service. Discussed with Dr Elisabeth Jang PGY2 *DC/Admit/Observation/Transfer Diagnosis at time of Disposition: CHF exacerbation Qualifiers: Heart failure type: unspecified Qualified Code(s): I50.9 - Heart failure, unspecified - Discharge Dispostion Decision to Admit order: Yes - Referrals - Patient Instructions - Post Discharge Activity
--- NOTE | 2018-11-16 08:50 | PN ---
Teaching Attending Note Name of Resident: Carlos Manuel Fajardo ATTENDING PHYSICIAN STATEMENT I saw and evaluated the patient. I reviewed the resident's note and discussed the case with the resident. I agree with the resident's findings and plan as documented. SUBJECTIVE: Patient is a 52 yo F with a PMHx of polysubstane abuse (heroin,alcohol), CHF, Asthma/COPD, AICD placement presents to the ER from [facility] with worsening SOB with hypoxia at [facility]. Patient has been hospitalized before needing bipap. Patient was placed on Bipap , feels better post bipap, no fever or chills. OBJECTIVE: Vital Signs Temperature 98.3 F 11/16/18 03:03 Pulse Rate 100 H 11/16/18 05:05 Respiratory Rate 20 11/16/18 03:03 Blood Pressure 140/90 11/16/18 05:05 O2 Sat by Pulse Oximetry (%) 100 11/16/18 05:05 GENERAL: The patient is awake, alert, and fully oriented, in no acute distress. HEAD: Normal with no signs of trauma. EYES: PERRL, extraocular movements intact, sclera anicteric, conjunctiva clear. ENT: Ears normal, oropharynx clear without exudates, moist mucous membranes. NECK: Trachea midline, full range of motion, supple. LUNGS: decreased BSs BL , no wheezes, no crackles, no accessory muscle use. HEART: mild tachycardia , with normal rate and rhythm, S1, S2 positive, no rub or gallop. ABDOMEN: Soft, nontender, nondistended, normoactive bowel sounds, no guarding, no rebound, no hepatosplenomegaly, no masses. EXTREMITIES: 2+ pulses, warm, well-perfused, no edema. NEUROLOGICAL: Cranial nerves II through XII grossly intact. Normal speech, gait not observed. PSYCH: Normal mood, normal affect. SKIN: Warm, dry, normal turgor, no rashes or lesions noted CBCD WBC 10.6 K/mm3 (4.0-10.0) H 11/16/18 04:20 RBC 3.09 M/mm3 (3.60-5.2) L 11/16/18 04:20 Hgb 9.9 GM/dL (10.7-15.3) L 11/16/18 04:20 Hct 30.5 % (32.4-45.2) L 11/16/18 04:20 MCV 98.7 fl (80-96) H 11/16/18 04:20 MCHC 32.6 g/dl (32.0-36.0) 11/16/18 04:20 RDW 15.1 % (11.6-15.6) 11/16/18 04:20 Plt Count 209 K/MM3 (134-434) 11/16/18 04:20 MPV 9.9 fl (7.5-11.1) 11/16/18 04:20 CMP Sodium 137 mmol/L (136-145) 11/16/18 04:20 Potassium 4.5 mmol/L (3.5-5.1) 11/16/18 04:20 Chloride 101 mmol/L (98-107) 11/16/18 04:20 Carbon Dioxide 30 mmol/L (21-32) 11/16/18 04:20 Anion Gap 6 MMOL/L (8-16) L 11/16/18 04:20 BUN 26.2 mg/dL (7-18) H 11/16/18 04:20 Creatinine 1.1 mg/dL (0.55-1.3) 11/16/18 04:20 Random Glucose 96 mg/dL (74-106) 11/16/18 04:20 Calcium 9.3 mg/dL (8.5-10.1) 11/16/18 04:20 Total Bilirubin 0.4 mg/dL (0.2-1) 11/16/18 04:20 AST 138 U/L (15-37) H 11/16/18 04:20 ALT 128 U/L (13-61) H 11/16/18 04:20 Alkaline Phosphatase 99 U/L (45-117) 11/16/18 04:20 Total Protein 6.7 g/dl (6.4-8.2) 11/16/18 04:20 Albumin 3.1 g/dl (3.4-5.0) L 11/16/18 04:20 CARDIAC ENZYMES Creatine Kinase 161 U/L (26-192) 11/16/18 03:30 Troponin I < 0.02 ng/ml (0.00-0.05) 11/16/18 03:30 Home Medications Medication Instructions Recorded Aspirin 81 mg PO DAILY 06/27/18 Albuterol Sulfate Inhaler - 2 inh PO Q4H PRN #1 inhaler 07/01/18 [Ventolin HFA Inhaler -] Budesonide/Formeterol Fumarate 12 puff IH BID #1 inhaler 07/01/18 [SYMBICORT 80/4.5mcg -] Lisinopril 5 mg PO DAILY #30 tablet 07/01/18 Metoprolol Succinate 25 mg PO BID #60 tab.er.24h 07/01/18 Current Medications Generic Name Dose Route Start Last Admin Trade Name Freq PRN Reason Stop Dose Admin Albuterol Sulfate 1 amp 11/16/18 12:36 Ventolin 0.083% Nebulizer Soln - NEB Q4H PRN SHORT OF BREATH/WHEEZING Albuterol/Ipratropium 1 amp 11/16/18 16:00 11/16/18 16:00 Duoneb - NEB 1 amp RQID FREDI Administration Aspirin 81 mg 11/16/18 12:45 11/16/18 13:34 Asa - PO 81 mg DAILY FREDI Administration Budesonide/Formoterol Fumarate 2 puff 11/16/18 13:00 11/16/18 15:43 Symbicort 80/4.5mcg - IH 2 puff BID FREDI Administration Furosemide 40 mg 11/17/18 10:00 Lasix Injection - IVPUSH DAILY FREDI Heparin Sodium (Porcine) 5,000 unit 11/16/18 14:30 11/16/18 15:19 Heparin - SQ 5,000 unit TID FREDI Administration Lisinopril 5 mg 11/16/18 12:45 11/16/18 13:34 Prinivil PO 5 mg DAILY FREDI Administration Metoprolol Succinate 25 mg 11/16/18 12:45 11/16/18 13:33 Toprol Xl - PO 25 mg BID FREDI Administration CXR: pulmonary congestion , PPM , ASSESSMENT AND PLAN: Patient is a 52yo woman with a PMHx of CHF, COPD, polysubstance abuse who presents from detox with worsening SOB, orthopnea, and hypoxia to the 80's tonight. She endorses needing CPAP in the past for difficulty breathing. # Acute diastolic CHF exacerbation given Lasix , will continue lasix 40mg daily IV, lisinopril, lopressor home meds continue, troponins x 2 negative. # ACUTE COPD exacerbation. ON BIPAP, continue homed meds, and neb treatments, pulmonary consult # Polysubstance abuse: detox consult DVT px:heparin
--- NOTE | 2018-11-16 12:19 | HP ---
CHIEF COMPLAINT: sob HISTORY OF PRESENT ILLNESS: Patient is a 52 yo F with a PMHx of polysubstane abuse (heroin,alcohol), CHF, Asthma/COPD, AICD placement (reports [place], and "heart stopping"), presenting to the ER from [facility] with worsening SOB over the last few days. Patient says she started feeling wheezy at [facility] and started having coughing spells with yellow sputum production. She said her albuterol did not help her. She also said she has not been using her albuterol more over the last few weeks. She was found hypoxic in the 80's at [facility] and was sent to the ER for further evaluation. Her symptoms improved with CPAP with also improvement in her saturation. Patient also mentions needing bipap during her previous hospitalizations. Patient currently denies SOB. Says she feels much better today. She denies chest pain, orthopnea, nausea, vomiting, fevers, chills, edema, urinary changes , abdominal pain, diarrhea, changes in stool. ER course was notable for: (1) CXR: congestive changes w/ questionable infiltrate @ L base (2) Lasix 40mg Recent Travel: denies PAST MEDICAL HISTORY: per hpi Social History: Smokin cigarettes a day Alcohol: drinks daily Drugs: heroin Family History: Allergies Penicillins Allergy (Severe, Verified 11/16/18 03:05) Hives confirmed by Dontae Silva RN HOME MEDICATIONS: Home Medications Medication Instructions Recorded Aspirin 81 mg PO DAILY 06/27/18 Albuterol Sulfate Inhaler - 2 inh PO Q4H PRN #1 inhaler 07/01/18 [Ventolin HFA Inhaler -] Budesonide/Formeterol Fumarate 12 puff IH BID #1 inhaler 07/01/18 [SYMBICORT 80/4.5mcg -] Lisinopril 5 mg PO DAILY #30 tablet 07/01/18 Metoprolol Succinate 25 mg PO BID #60 tab.er.24h 07/01/18 REVIEW OF SYSTEMS CONSTITUTIONAL: Absent: fever, chills, diaphoresis, generalized weakness, malaise, loss of appetite, weight change HEENT: Absent: rhinorrhea, nasal congestion, throat pain, throat swelling, difficulty swallowing, mouth swelling, ear pain, eye pain, visual changes CARDIOVASCULAR: Absent: chest pain, syncope, palpitations, irregular heart rate, lightheadedness , peripheral edema RESPIRATORY: wheezing, sob, cough Absent: dyspnea with exertion, orthopnea,stridor, hemoptysis GASTROINTESTINAL: Absent: abdominal pain, abdominal distension, nausea, vomiting, diarrhea, constipation, melena, hematochezia GENITOURINARY: Absent: dysuria, frequency, urgency, hesitancy, hematuria, flank pain, genital pain MUSCULOSKELETAL: Absent: myalgia, arthralgia, joint swelling, back pain, neck pain PHYSICAL EXAMINATION Vital Signs - 24 hr 11/16/18 11/16/18 11/16/18 03:03 03:19 03:30 Temperature 98.3 F Pulse Rate 90 Pulse Rate [ Radial] Respiratory 20 Rate Blood Pressure 150/90 Blood Pressure [Left Arm] O2 Sat by Pulse 100 100 100 Oximetry (%) 11/16/18 11/16/18 05:05 11:47 Temperature Pulse Rate Pulse Rate [ 100 H 76 Radial] Respiratory 20 Rate Blood Pressure Blood Pressure 140/90 132/76 [Left Arm] O2 Sat by Pulse 100 100 Oximetry (%) GENERAL: a/o x 3, on bipap EYES: Pupils equal, round and reactive to light EARS, NOSE, THROAT: dry mucous membranes. NECK: supple without lymphadenopathy, JVD, or masses. LUNGS: bibasilar crackles, no wheezing HEART: RRR, no murmurs appreciated. ABDOMEN: Soft, nontender, not distended, normoactive bowel sounds LOWER EXTREMITIES: 2+ pulses, No peripheral edema. NEUROLOGICAL: Cranial nerves II-XII intact Laboratory Results - last 24 hr 11/16/18 11/16/18 11/16/18 03:25 03:30 03:30 WBC Cancelled Corrected WBC (auto) Cancelled RBC Cancelled Hgb Cancelled Hct Cancelled MCV Cancelled MCH Cancelled MCHC Cancelled RDW Cancelled Plt Count Cancelled MPV Cancelled Absolute Neuts (auto) Cancelled Absolute Lymphs (auto) Cancelled Absolute Monos (auto) Cancelled Absolute Eos (auto) Cancelled Absolute Basos (auto) Cancelled Add Manual Diff Cancelled Neutrophils % Cancelled Lymphocytes % Cancelled Monocytes % Cancelled Eosinophils % Cancelled Basophils % Cancelled Nucleated RBC % Cancelled Platelet Estimate Cancelled Platelet Comment Cancelled Normal RBC Morphology Cancelled Anticoagulation Therapy Cancelled Puncture Site Cancelled Patient Temperature Cancelled ABG pH Cancelled ABG pCO2 at Pt Temp Cancelled ABG pO2 at Pt Temp Cancelled ABG HCO3 Cancelled ABG O2 Sat (Measured) Cancelled ABG O2 Content Cancelled ABG Base Excess Cancelled Prasanth Test Cancelled O2 Delivery Device Cancelled Oxygen Flow Rate Cancelled Vent Mode Cancelled Vent Rate Cancelled Mechanical Rate Cancelled PEEP Cancelled Pressure Support Vent Cancelled Sodium Potassium Chloride Carbon Dioxide Anion Gap BUN Creatinine Est GFR (CKD-EPI)AfAm Est GFR (CKD-EPI)NonAf Random Glucose Lactic Acid Calcium Magnesium Total Bilirubin AST ALT Alkaline Phosphatase Creatine Kinase 161 Creatine Kinase Index 0.8 CK-MB (CK-2) 1.3 Troponin I < 0.02 B-Natriuretic Peptide Total Protein Albumin 11/16/18 11/16/18 11/16/18 03:30 03:30 03:30 WBC Corrected WBC (auto) RBC Hgb Hct MCV MCH MCHC RDW Plt Count MPV Absolute Neuts (auto) Absolute Lymphs (auto) Absolute Monos (auto) Absolute Eos (auto) Absolute Basos (auto) Add Manual Diff Neutrophils % Lymphocytes % Monocytes % Eosinophils % Basophils % Nucleated RBC % Platelet Estimate Platelet Comment Normal RBC Morphology Anticoagulation Therapy Puncture Site Patient Temperature ABG pH ABG pCO2 at Pt Temp ABG pO2 at Pt Temp ABG HCO3 ABG O2 Sat (Measured) ABG O2 Content ABG Base Excess Prasanth Test O2 Delivery Device Oxygen Flow Rate Vent Mode Vent Rate Mechanical Rate PEEP Pressure Support Vent Sodium 136 Potassium 5.7 H Chloride 100 Carbon Dioxide 28 Anion Gap 7 L BUN 27.6 H Creatinine 1.2 Est GFR (CKD-EPI)AfAm 61.03 Est GFR (CKD-EPI)NonAf 52.65 Random Glucose 100 Lactic Acid Calcium 9.4 Magnesium 1.9 Total Bilirubin 0.5 AST 184 H ALT 146 H Alkaline Phosphatase 111 Creatine Kinase Creatine Kinase Index CK-MB (CK-2) Troponin I B-Natriuretic Peptide 9541.2 H Total Protein 7.5 Albumin 3.4 11/16/18 11/16/18 11/16/18 04:20 04:20 04:50 WBC 10.6 H Corrected WBC (auto) RBC 3.09 L Hgb 9.9 L Hct 30.5 L MCV 98.7 H MCH 32.1 MCHC 32.6 RDW 15.1 Plt Count 209 MPV 9.9 Absolute Neuts (auto) 8.3 H Absolute Lymphs (auto) Absolute Monos (auto) Absolute Eos (auto) Absolute Basos (auto) Add Manual Diff Neutrophils % 78.2 D Lymphocytes % 12.4 D Monocytes % 8.0 Eosinophils % 0.4 D Basophils % 1.0 Nucleated RBC % 0 Platelet Estimate Platelet Comment Normal RBC Morphology Anticoagulation Therapy Puncture Site Patient Temperature ABG pH ABG pCO2 at Pt Temp ABG pO2 at Pt Temp ABG HCO3 ABG O2 Sat (Measured) ABG O2 Content ABG Base Excess Prasanth Test O2 Delivery Device Oxygen Flow Rate Vent Mode Vent Rate Mechanical Rate PEEP Pressure Support Vent Sodium 137 Potassium 4.5 Chloride 101 Carbon Dioxide 30 Anion Gap 6 L BUN 26.2 H Creatinine 1.1 Est GFR (CKD-EPI)AfAm 67.79 Est GFR (CKD-EPI)NonAf 58.49 Random Glucose 96 Lactic Acid 0.8 Calcium 9.3 Magnesium Total Bilirubin 0.4 AST 138 H ALT 128 H Alkaline Phosphatase 99 Creatine Kinase Creatine Kinase Index CK-MB (CK-2) Troponin I B-Natriuretic Peptide Total Protein 6.7 Albumin 3.1 L 11/16/18 11:09 WBC Corrected WBC (auto) RBC Hgb Hct MCV MCH MCHC RDW Plt Count MPV Absolute Neuts (auto) Absolute Lymphs (auto) Absolute Monos (auto) Absolute Eos (auto) Absolute Basos (auto) Add Manual Diff Neutrophils % Lymphocytes % Monocytes % Eosinophils % Basophils % Nucleated RBC % Platelet Estimate Platelet Comment Normal RBC Morphology Anticoagulation Therapy Puncture Site Patient Temperature ABG pH ABG pCO2 at Pt Temp ABG pO2 at Pt Temp ABG HCO3 ABG O2 Sat (Measured) ABG O2 Content ABG Base Excess Prasanth Test O2 Delivery Device Oxygen Flow Rate Vent Mode Vent Rate Mechanical Rate PEEP Pressure Support Vent Sodium Potassium Chloride Carbon Dioxide Anion Gap BUN Creatinine Est GFR (CKD-EPI)AfAm Est GFR (CKD-EPI)NonAf Random Glucose Lactic Acid Calcium Magnesium Total Bilirubin AST ALT Alkaline Phosphatase Creatine Kinase Creatine Kinase Index CK-MB (CK-2) Troponin I < 0.02 B-Natriuretic Peptide Total Protein Albumin ASSESSMENT/PLAN: 52 yo F with a PMHx of polysubstane abuse (heroin,alcohol), CHF, Asthma, AICD placement (reports [place], and "heart stopping"), presenting to the ER from [facility] with worsening SOB over the last few days. #SOB -2/2 CHF vs COPD/Asthma Exacerbation -CXR w/ congestive changes w/ questionable infiltrate @ L base -Lasix 40mg given -cont. Lasix daily -daily weights, strict i/o's -Echo ordered -tele monitoring -cardiac consult: Dr. Hinton. Patient with extensive cardiac history per patient -pulm consult: Dr. Marcy Forde QID -Albuterol PRN as needed -cont. Bipap as needed #CAD/HTN -cont ASA, metoprolol, lisinopril #Polysubstance abuse -not withdrawing at this time -addiction medicine consult #FEN -no iv fluids -monitor lytes -sodium diet #Dvt -hep sq Visit type - Emergency Visit Emergency Visit: Yes ED Registration Date: 11/16/18 Care time: The patient presented to the Emergency Department on the above date and was hospitalized for further evaluation of their emergent condition. - New Patient This patient is new to me today: Yes Date on this admission: 11/16/18 - Critical Care Critical Care patient: No ATTENDING PHYSICIAN STATEMENT I saw and evaluated the patient. I reviewed the resident's note and discussed the case with the resident. I agree with the resident's findings and plan as documented. SUBJECTIVE: OBJECTIVE: ASSESSMENT AND PLAN:
[2018-11-16] MEDS ORDERED: ALBUTEROL SO4 0.083% IH SOL 2.5 MG/3 ML VIAL.NEB. NEB PRN (12:36)
[2018-11-16] MEDS ORDERED: PT OWN MED DRAWER 7, Y5N ONE ×2 (13:31→14:59)
[2018-11-16] MEDS: metoPROLOL SUCCINATE 25 MG TAB.SR.24H (FP) PO SCH ×2 (13:33→21:50)
[2018-11-16] MEDS: ASPIRIN 81 MG CHEWABLE TABLETS PO SCH (13:34)
[2018-11-16] MEDS: LISINOPRIL 5 MG TABLET (FP) PO SCH (13:34)
[2018-11-16 13:48] VITALS: BMI 22.1
[2018-11-16] MEDS ORDERED: predniSONE 20 MG TABLET (UD) PO SCH (14:30)
--- NOTE | 2018-11-16 14:30 | CON.PULM ---
Consult Consult Specialty:: PULM/CCM Referred by:: Hospitalist Reason for Consultation:: SOB - History of Present Illness Chief Complaint: SOB History of Present Illness: 52 F, polysubstane abuse (heroin,alcohol), CHF, apparent Asthma in childhood ( no intubations, not steroid dependent, no PFTs), AICD placement, AMI, and smoking. Admitted via the ER from [facility] due to worsening SOB over the last few days. No fever or chills. She does report some mild wheezing. She also reports yellow sputum. No travel history or sick contacts. No hemoptysis or night sweats. In the ER required NIPPV for acute respiratory distress. CXR: Cardiomegaly / AICD left chest / bilateral pulmonary vascular congestion. - History Source History Provided By: Patient Limitations to Obtaining History: Poor Historian - Past Medical History Pulmonary: Yes: Asthma, Bronchitis. No: Cancer, COPD, O2 Dependent, Pneumonia, Previously Intubated, Pulmonary Embolus, Pulmonary Fibrosis, Sleep Apnea ...LMP: 11/10/18 ...: No - Alcohol/Substance Use Hx Alcohol Use: Yes - Smoking History Smoking history: Current some day smoker Have you smoked in the past 12 months: Yes Aproximately how many cigarettes per day: 10 Home Medications - Allergies Allergies/Adverse Reactions: Allergies Allergy/AdvReac Type Severity Reaction Status Date / Time Penicillins Allergy Severe Hives Verified 11/16/18 03:05 - Home Medications Home Medications: Ambulatory Orders Aspirin 81 mg PO DAILY 06/27/18 Albuterol Sulfate Inhaler - [Ventolin HFA Inhaler -] 2 inh PO Q4H PRN #1 inhaler 07/01/18 Budesonide/Formeterol Fumarate [SYMBICORT 80/4.5mcg -] 12 puff IH BID #1 inhaler 07/01/18 Lisinopril 5 mg PO DAILY #30 tablet 07/01/18 Metoprolol Succinate 25 mg PO BID #60 tab.er.24h 07/01/18 Family Disease History - Family Disease History Family Disease History: Heart Disease: Father (ASTHMA, OF HEART DISEASE), Respiratory: Father, Other: Brother (ALCOHOLIC) Review of Systems - Review of Systems Constitutional: reports: Malaise. denies: Chills, Fever, Night Sweats Eyes: reports: No Symptoms Neck: reports: No Symptoms Cardiovascular: reports: Shortness of Breath. denies: Chest Pain, Edema, Palpitations Respiratory: reports: Cough, SOB, SOB on Exertion, Wheezing. denies: Hemoptysis , Orthopnea, PND, Snoring Gastrointestinal: reports: No Symptoms Genitourinary: reports: No Symptoms Breasts: reports: No Symptoms Reported Musculoskeletal: reports: No Symptoms Integumentary: reports: No Symptoms Neurological: reports: No Symptoms Endocrine: reports: No Symptoms Hematology/Lymphatic: reports: No Symptoms Psychiatric: reports: No Symptoms Physical Exam Vital Sings: Vital Signs Temperature 100.1 F H 11/16/18 12:30 Pulse Rate 82 11/16/18 12:30 Respiratory Rate 18 11/16/18 12:30 Blood Pressure 137/82 11/16/18 12:30 O2 Sat by Pulse Oximetry (%) 100 11/16/18 11:47 Constitutional: Yes: No Distress, Thin Eyes: Yes: Conjunctiva Clear, EOM Intact HENT: Yes: Atraumatic, Normocephalic Neck: Yes: Supple, Trachea Midline Cardiovascular: Yes: Regular Rate and Rhythm, JVD Respiratory: Yes: Cough, Diminished, On Nasal O2, Rales, Rhonchi, Tachypnea. No : Accessory Muscle Use, SOB, SOB on Exertion, Stridor, Wheezes ...Inspection: Yes: WNL ...Clubbing: No Gastrointestinal: Yes: Normal Bowel Sounds, Soft Renal/: Yes: WNL Musculoskeletal: Yes: WNL Extremities: Yes: WNL Edema: No Peripheral Pulses WNL: Yes Integumentary: Yes: WNL Neurological: Yes: WNL, Alert, Oriented ...Motor Strength: WNL Psychiatric: Yes: WNL, Alert, Oriented Labs: CBC, BMP 11/16/18 04:20 11/16/18 04:20 ABG Results ABG pH Cancelled 11/16/18 03:25 ABG pCO2 at Pt Temp Cancelled 11/16/18 03:25 ABG pO2 at Pt Temp Cancelled 11/16/18 03:25 ABG HCO3 Cancelled 11/16/18 03:25 ABG O2 Sat (Measured) Cancelled 11/16/18 03:25 ABG O2 Content Cancelled 11/16/18 03:25 ABG Base Excess Cancelled 11/16/18 03:25 Imaging - Results Chest X-ray: Report Reviewed, Image Reviewed Problem List - Problems (1) Alcohol dependence with uncomplicated withdrawal Code(s): F10.230 - ALCOHOL DEPENDENCE WITH WITHDRAWAL, UNCOMPLICATED (2) Anemia Code(s): D64.9 - ANEMIA, UNSPECIFIED (3) CHF exacerbation Code(s): I50.9 - HEART FAILURE, UNSPECIFIED Qualifiers: Heart failure type: unspecified Qualified Code(s): I50.9 - Heart failure, unspecified (4) Cocaine dependence Code(s): F14.20 - COCAINE DEPENDENCE, UNCOMPLICATED Qualifiers: Substance use status: uncomplicated Qualified Code(s): F14.20 - Cocaine dependence, uncomplicated (5) Opiate dependence Code(s): F11.20 - OPIOID DEPENDENCE, UNCOMPLICATED (6) HTN (hypertension) Code(s): I10 - ESSENTIAL (PRIMARY) HYPERTENSION Qualifiers: Hypertension type: essential hypertension Qualified Code(s): I10 - Essential (primary) hypertension (7) Schizoaffective disorder Code(s): F25.9 - SCHIZOAFFECTIVE DISORDER, UNSPECIFIED (8) Substance-induced sleep disorder Code(s): F19.982 - OTH PSYCHOACTIVE SUBSTANCE USE, UNSP W SLEEP DISORDER (9) Asthma Code(s): J45.909 - UNSPECIFIED ASTHMA, UNCOMPLICATED Qualifiers: Asthma severity: mild Asthma persistence: intermittent Asthma complication type: with status asthmaticus Qualified Code(s): J45.22 - Mild intermittent asthma with status asthmaticus (10) Bipolar II disorder Code(s): F31.81 - BIPOLAR II DISORDER (11) CAD (coronary artery disease) Code(s): I25.10 - ATHSCL HEART DISEASE OF [place] CORONARY ARTERY W/O ANG PCTRS Qualifiers: Coronary Disease-Associated Artery/Lesion type: unspecified vessel or lesion type [place] vs. transplanted heart: unspecified whether [place] or transplanted heart Associated angina: with unspecified angina Qualified Code (s): I25.119 - Atherosclerotic heart disease of [place] coronary artery with unspecified angina pectoris (12) COPD (chronic obstructive pulmonary disease) Code(s): J44.9 - CHRONIC OBSTRUCTIVE PULMONARY DISEASE, UNSPECIFIED (13) HLD (hyperlipidemia) Code(s): E78.5 - HYPERLIPIDEMIA, UNSPECIFIED (14) ICD (implantable cardioverter-defibrillator) in place Code(s): Z95.810 - PRESENCE OF AUTOMATIC (IMPLANTABLE) CARDIAC DEFIBRILLATOR (15) Nicotine dependence Code(s): F17.200 - NICOTINE DEPENDENCE, UNSPECIFIED, UNCOMPLICATED Qualifiers: Nicotine product type: cigarettes Substance use status: uncomplicated Qualified Code(s): F17.210 - Nicotine dependence, cigarettes, uncomplicated (16) Non-compliance Code(s): Z91.19 - PATIENT'S NONCOMPLIANCE W OTH MEDICAL TREATMENT AND REGIMEN Assessment/Plan Lasix O2 as needed NIPPV as needed Doubt true AE of Asthma (More likely COPD due to smoking) Daily weights Follow I & O No smoking Noted SYmbicort: On discharge should be on LAMA/LABA VTE prophylaxis Outpatient PFTs once stable Will follow Thank you. Dr Nguyen
[2018-11-16] MEDS: HEPARIN NA (PORCINE) 5,000 UNITS/ML 1ML VIAL SQ SCH ×2 (15:19→21:50)
[2018-11-16] MEDS: BUDESONIDE/FORMETEROL FUMARATE 80/4.5 mcg INHALER IH SCH ×2 (15:43→21:50)
[2018-11-16] MEDS: ALBUTEROL SO4 2.5/IPRATROPIUM 0.5 INH SOL 3 ML VIAL.NEB. NEB SCH ×2 (16:00→21:15)
--- NOTE | 2018-11-16 16:47 | EKG ---
Test Reason : Blood Pressure : / mmHG Vent. Rate : 084 BPM Atrial Rate : 084 BPM P-R Int : 138 ms QRS Dur : 086 ms QT Int : 392 ms P-R-T Axes : 029 010 087 degrees QTc Int : 463 ms NORMAL SINUS RHYTHM LEFT VENTRICULAR HYPERTROPHY WITH REPOLARIZATION ABNORMALITY ANTERIOR INFARCT (CITED ON OR BEFORE 19-JUL-2017) ABNORMAL ECG Confirmed by MD SYED, KATELYNN ([id number]) on 11/16/2018 4:46:52 PM Referred By: Confirmed By:KATELYNN LYNCH MD
[2018-11-17] MEDS: HEPARIN NA (PORCINE) 5,000 UNITS/ML 1ML VIAL SQ SCH ×3 (06:32→21:43)
[2018-11-17 07:05] LABS: ALBUMIN 2.8 g/dl (3.4-5.0); BASO % 0.6 % (0-2.0); BILIRUBIN,TOTAL 0.3 mg/dL (0.2-1); BLOOD UREA NITROGEN 38.1 mg/dL (7-18); CALCIUM 8.4 mg/dL (8.5-10.1); CREATININE 1.5 mg/dL (0.55-1.3); EOS % 1.9 % (0-4.5); HEMATOCRIT 31.1 % (32.4-45.2); HEMOGLOBIN 10.5 GM/dL (10.7-15.3); LYMPH % 21.4 % (8-40); MCH 32.9 pg (25.7-33.7); MCHC 33.7 g/dl (32.0-36.0); MEAN CELL VOLUME 97.5 fl (80-96); MEAN PLT VOLUME 9.8 fl (7.5-11.1); MONO % 8.3 % (3.8-10.2); NEUT % 67.8 % (42.8-82.8); PHOSPHOROUS 4.2 mg/dL (2.5-4.9); PLATELET COUNT 221 K/MM3 (134-434); POTASSIUM 4.2 mmol/L (3.5-5.1); RBC 3.19 M/mm3 (3.60-5.2); TOT PROT 6.2 g/dl (6.4-8.2); WHITE BLOOD COUNT 9.6 K/mm3 (4.0-10.0)
[2018-11-17] MEDS: ALBUTEROL SO4 2.5/IPRATROPIUM 0.5 INH SOL 3 ML VIAL.NEB. NEB SCH ×4 (07:30→20:21)
--- NOTE | 2018-11-17 08:37 | CON.CARD ---
Consult Consult Specialty:: cardio - History of Present Illness Chief Complaint: sob History of Present Illness: 52 F here with sob. req'd NIPPV in ER, CXR pulm vasc congestion (reviewed by pulm--no infiltrate suspected). Tmax 100.1, WBC 10 in ER. received lasix 40 IVP denies CP at any time. no more sob--feels completely back to baseline denies feet/leg swelling no palp + signif UOP after lasix yest PMH: polysubstane abuse (heroin,alcohol) CHF s/p ICD CAD ? MD apparent Asthma in childhood smoking psych disorder - Past Medical History Pulmonary: Yes: Asthma, Bronchitis. No: Cancer, COPD, O2 Dependent, Pneumonia, Previously Intubated, Pulmonary Embolus, Pulmonary Fibrosis, Sleep Apnea ...LMP: 11/10/18 ...: No - Alcohol/Substance Use Hx Alcohol Use: Yes - Smoking History Smoking history: Current some day smoker Have you smoked in the past 12 months: Yes Aproximately how many cigarettes per day: 10 Home Medications - Allergies Allergies/Adverse Reactions: Allergies Allergy/AdvReac Type Severity Reaction Status Date / Time Penicillins Allergy Severe Hives Verified 11/16/18 03:05 - Home Medications Home Medications: Ambulatory Orders Aspirin 81 mg PO DAILY 06/27/18 Albuterol Sulfate Inhaler - [Ventolin HFA Inhaler -] 2 inh PO Q4H PRN #1 inhaler 07/01/18 Budesonide/Formeterol Fumarate [SYMBICORT 80/4.5mcg -] 12 puff IH BID #1 inhaler 07/01/18 Lisinopril 5 mg PO DAILY #30 tablet 07/01/18 Metoprolol Succinate 25 mg PO BID #60 tab.er.24h 07/01/18 Family Disease History - Family Disease History Family Disease History: Heart Disease: Father (ASTHMA, OF HEART DISEASE), Respiratory: Father, Other: Brother (ALCOHOLIC) Review of Systems - Review of Systems Constitutional: denies: Chills, Fever Eyes: denies: Eye Pain HENT: denies: Nasal Congestion Neck: denies: Stiffness Cardiovascular: denies: Palpitations Respiratory: denies: Orthopnea, PND Gastrointestinal: denies: Diarrhea, Rectal Bleeding Genitourinary: denies: Burning, Hematuria Musculoskeletal: denies: Muscle Pain Integumentary: denies: Rash Neurological: denies: Numbness, Seizure, Syncope Endocrine: denies: Excessive Sweating Hematology/Lymphatic: denies: Excessive Bleeding Vital Signs: Vital Signs Temperature 98.8 F 11/17/18 06:00 Pulse Rate 67 11/17/18 06:00 Respiratory Rate 18 11/17/18 06:00 Blood Pressure 141/97 11/17/18 06:00 O2 Sat by Pulse Oximetry (%) 96 11/16/18 21:00 Constitutional: Yes: Well Nourished, No Distress Eyes: No: Sclera Icterus HENT: No: Nasal Congestion Neck: No: Decreased ROM Respiratory: Yes: CTA Bilaterally, Diminished (L base), Rales (L base). No: Accessory Muscle Use, Wheezes Gastrointestinal: Yes: Normal Bowel Sounds. No: Distention, Hepatomegaly, Palpable Mass, Tenderness Cardiovascular: Yes: Regular Rate and Rhythm JVD: No Carotid Bruit: No PMI: Non-Displaced Heart Sounds: Yes: S1, S2. No: Gallop Murmur: No: Systolic Murmur, Diastolic Murmur Musculoskeletal: Yes: Other (No kyphosis) Extremities: No: Cool, Cyanosis Edema: No Peripheral Pulses: 2+ Left Carotid, 2+ Right Carotid, 2+ Left Doralis Pedis, 2+ Right Dorsalis Pedis Integumentary: No: Jaundice Neurological: Yes: Alert, Oriented (x3) Psychiatric: No: Agitated - Other Data Labs, Other Data: CBC, BMP 11/17/18 05:20 11/17/18 05:20 Troponin, BNP 11/16/18 11:09 Troponin I < 0.02 Troponin, BNP 11/16/18 11:09 Troponin I < 0.02 Laboratory Tests 11/16/18 11/16/18 11/16/18 03:30 03:30 11:09 Troponin I < 0.02 < 0.02 B-Natriuretic Peptide 9541.2 H Assessment/Plan ECG: NSR, LVH with assctd repol abn--no change vs prior CXR: congestive changes, ? infiltrate L base tele: NSR sob--a.e. copd vs chf vs both; h/o syst chf: -known ICD -BNP 9K, pulm vasc congestion on xray, pt with known h/o probably syst chf (s/p ICD) -lasix 40 IV given yest--BUN/creat both bumped today. appears euvolemic. start 20 po daily tomorrow -echo -cont home metoprolol, lisinopril -outpt f/u of chf and ICD monitoring (if can determine the asbestos surveyor of her device, can check while here) ? CAD: -reports history of "heart attack" when incarcerated 2009--denies stents -cont home regimen aspirin, not on statin--defer to outpt f/u HANANE: -baseline creat 1.0-1.3 -up today, s/p dose of lasix yesterday elevated LFTs: -trending down -? right heart failure, improving sec to diuresis -monitor trend -per hospitalist smoking, etoh/substance abuse: -counselled on cessation of all anemia: -per hospitalists
[2018-11-17] MEDS ORDERED: FUROSEMIDE 40 MG/4 ML INJECTABLE VIAL IVPUSH SCH (10:00)
[2018-11-17] MEDS: LISINOPRIL 5 MG TABLET (FP) PO SCH (10:38)
[2018-11-17] MEDS: BUDESONIDE/FORMETEROL FUMARATE 80/4.5 mcg INHALER IH SCH ×2 (10:38→22:25)
[2018-11-17] MEDS: metoPROLOL SUCCINATE 25 MG TAB.SR.24H (FP) PO SCH ×2 (10:38→21:43)
[2018-11-17] MEDS: ASPIRIN 81 MG CHEWABLE TABLETS PO SCH (10:38)
--- NOTE | 2018-11-17 11:16 | ECHO ---
Name: KARINA VILLEGAS Exam:Adult Echocardiogram Study Date: 11/17/2018 09:01 AM Age: 52 yrs Reason For Study: CHF Height: 63 in Weight: 130 lb BSA: 1.6 m2 MMode/2D Measurements & Calculations IVSd: 0.87 cm Ao root diam: 2.8 cm LVIDd: 6.1 cm LA dimension: 4.1 cm LVIDs: 4.6 cm LVPWd: 1.2 cm LVPWs: 1.4 cm EDV(Teich): 189.3 ml ESV(Teich): 97.1 ml TAPSE: 2.6 cm RV S Pavan: 14.9 cm/sec Doppler Measurements & Calculations MV E max pavan: 93.3 cm/sec Ao V2 max: 147.7 cm/sec MV A max pavan: 61.7 cm/sec Ao max P.7 mmHg MV E/A: 1.5 Ao V2 mean: 107.2 cm/sec MV dec time: 0.16 sec Ao mean P.2 mmHg Ao V2 VTI: 30.2 cm LV V1 max P.0 mmHg MR max pavan: 508.2 cm/sec LV V1 mean P.4 mmHg MR max P.3 mmHg LV V1 max: 100.2 cm/sec LV V1 mean: 71.9 cm/sec LV V1 VTI: 21.0 cm TR max pavan: 319.1 cm/sec PA V2 max: 120.8 cm/sec TR max P.8 mmHg PA max P.8 mmHg RVSP(TR): 50.8 mmHg Med Peak E' Pavan: 4.3 cm/sec RAP systole: 10.0 mmHg Med E/e': 21.8 Lat Peak E' Pavan: 9.5 cm/sec Lat E/e': 9.9 Procedure A complete two-dimensional transthoracic echocardiogram was performed (2D, M-mode, Doppler and color flow Doppler). Left Ventricle The left ventricle is mildly dilated. Left ventricular systolic function is mildly reduced. Ejection Fraction = 45-50%. Diastolic dysfunction, Grade II (pseudonormalization pattern). Ratio E/E'= 20. There is mil d global hypokinesis of the left ventricle. Right Ventricle The right ventricle is normal size. There is a pacemaker lead in the right ventricle. The right ventr icular systolic function is normal. RV systolic TDI is 15 cm/s. Atria The left atrial size is normal. Right atrial size is normal. Mitral Valve There is mild mitral valve thickening. There is mild to moderate mitral regurgitation. Tricuspid Valve The tricuspid valve is normal in structure and function. There is moderate to severe tricuspid regurg itation. Pulmonary artery systolic pressure is at least 49 mmHg if RA pressure is assumed 3 mmHg. Aortic Valve There is mild aortic sclerosis.;. No aortic regurgitation is present. Pulmonic Valve The pulmonic valve is not well visualized. Mild pulmonic valvular regurgitation. Great Vessels The aortic root is normal size. Pericardium/Pleura There is no pericardial effusion. Interpretation Summary The left ventricle is mildly dilated. Left ventricular systolic function is mildly reduced. There is mild global hypokinesis of the left ventricle. Ejection Fraction = 45-50%. Diastolic dysfunction, Grade II (pseudonormalization pattern). Ratio E/E'= 20 c/w elevated filling pressure There is a pacemaker lead in the right ventricle. The right ventricular systolic function is normal. The left atrial size is normal. Right atrial size is normal. There is mild mitral valve thickening. There is mild to moderate mitral regurgitation. There is moderate to severe tricuspid regurgitation. Pulmonary artery systolic pressure is at least 49 mmHg if RA pressure is assumed 3 mmHg There is mild aortic sclerosis. Mild pulmonic valvular regurgitation. There is no pericardial effusion. Rob Van MD 11/17/2018 11:16 AM
--- NOTE | 2018-11-17 11:32 | PN ---
Progress Note, Physician History of Present Illness: pulmonary COMFORTABLE,FEELING BETTER,SOB IMPROVING,-CP. - Current Medication List Current Medications: Active Medications Albuterol Sulfate (Ventolin 0.083% Nebulizer Soln -) 1 amp NEB Q4H PRN PRN Reason: SHORT OF BREATH/WHEEZING Albuterol/Ipratropium (Duoneb -) 1 amp NEB RQID [facility] Last Admin: 11/17/18 11:08 Dose: 1 amp Aspirin (Asa -) 81 mg PO DAILY [facility] Last Admin: 11/17/18 10:38 Dose: 81 mg Budesonide/Formoterol Fumarate (Symbicort 80/4.5mcg -) 2 puff IH BID [facility] Last Admin: 11/17/18 10:38 Dose: Not Given Heparin Sodium (Porcine) (Heparin -) 5,000 unit SQ TID [facility] Last Admin: 11/17/18 06:32 Dose: 5,000 unit Lisinopril (Prinivil) 5 mg PO DAILY [facility] Last Admin: 11/17/18 10:38 Dose: 5 mg Metoprolol Succinate (Toprol Xl -) 25 mg PO BID [facility] Last Admin: 11/17/18 10:38 Dose: 25 mg - Objective Vital Signs: Vital Signs Temperature 97.9 F 11/17/18 10:00 Pulse Rate 70 11/17/18 11:07 Respiratory Rate 18 11/17/18 10:00 Blood Pressure 131/100 11/17/18 10:00 O2 Sat by Pulse Oximetry (%) 99 11/17/18 11:07 Constitutional: Yes: Well Nourished, Calm Eyes: Yes: WNL HENT: Yes: Nasal Congestion Neck: Yes: WNL Cardiovascular: Yes: Regular Rate and Rhythm, S1, S2 Respiratory: Yes: Rales, Wheezes (FEW WHEEZES AND BASIALR CRACKLES) Gastrointestinal: Yes: Normal Bowel Sounds, Soft Extremities: Yes: WNL Edema: No Labs: CBC, BMP 11/17/18 05:20 11/17/18 05:20 Assessment/Plan Problem List - Problems (1) Alcohol dependence with uncomplicated withdrawal Code(s): F10.230 - ALCOHOL DEPENDENCE WITH WITHDRAWAL, UNCOMPLICATED (2) Anemia Code(s): D64.9 - ANEMIA, UNSPECIFIED (3) CHF exacerbation Code(s): I50.9 - HEART FAILURE, UNSPECIFIED Qualifiers: Heart failure type: unspecified Qualified Code(s): I50.9 - Heart failure, unspecified (4) Cocaine dependence Code(s): F14.20 - COCAINE DEPENDENCE, UNCOMPLICATED Qualifiers: Substance use status: uncomplicated Qualified Code(s): F14.20 - Cocaine dependence, uncomplicated (5) Opiate dependence Code(s): F11.20 - OPIOID DEPENDENCE, UNCOMPLICATED (6) HTN (hypertension) Code(s): I10 - ESSENTIAL (PRIMARY) HYPERTENSION Qualifiers: Hypertension type: essential hypertension Qualified Code(s): I10 - Essential (primary) hypertension (7) Schizoaffective disorder Code(s): F25.9 - SCHIZOAFFECTIVE DISORDER, UNSPECIFIED (8) Substance-induced sleep disorder Code(s): F19.982 - OTH PSYCHOACTIVE SUBSTANCE USE, UNSP W SLEEP DISORDER (9) Asthma Code(s): J45.909 - UNSPECIFIED ASTHMA, UNCOMPLICATED Qualifiers: Asthma severity: mild Asthma persistence: intermittent Asthma complication type: with status asthmaticus Qualified Code(s): J45.22 - Mild intermittent asthma with status asthmaticus (10) Bipolar II disorder Code(s): F31.81 - BIPOLAR II DISORDER (11) CAD (coronary artery disease) Code(s): I25.10 - ATHSCL HEART DISEASE OF [place] CORONARY ARTERY W/O ANG PCTRS Qualifiers: Coronary Disease-Associated Artery/Lesion type: unspecified vessel or lesion type [place] vs. transplanted heart: unspecified whether [place] or transplanted heart Associated angina: with unspecified angina Qualified Code (s): I25.119 - Atherosclerotic heart disease of [place] coronary artery with unspecified angina pectoris (12) COPD (chronic obstructive pulmonary disease) Code(s): J44.9 - CHRONIC OBSTRUCTIVE PULMONARY DISEASE, UNSPECIFIED (13) HLD (hyperlipidemia) Code(s): E78.5 - HYPERLIPIDEMIA, UNSPECIFIED (14) ICD (implantable cardioverter-defibrillator) in place Code(s): Z95.810 - PRESENCE OF AUTOMATIC (IMPLANTABLE) CARDIAC DEFIBRILLATOR (15) Nicotine dependence Code(s): F17.200 - NICOTINE DEPENDENCE, UNSPECIFIED, UNCOMPLICATED Qualifiers: Nicotine product type: cigarettes Substance use status: uncomplicated Qualified Code(s): F17.210 - Nicotine dependence, cigarettes, uncomplicated (16) Non-compliance Code(s): Z91.19 - PATIENT'S NONCOMPLIANCE W OTH MEDICAL TREATMENT AND REGIMEN Assessment/Plan Lasix O2 as needed NIPPV as needed Doubt true AE of Asthma (More likely COPD due to smoking) Daily weights Follow I & O No smoking On discharge should be on LAMA/LABA VTE prophylaxis Outpatient PFTs once stable DR MENENDEZ
[2018-11-17] MEDS ORDERED: AZITHROMYCIN 250 MG TABLET PO ONE (11:33)
[2018-11-17] MEDS ORDERED: SODIUM CHLORIDE 0.45% 1,000 ML IV SCH (11:45)
[2018-11-17] MEDS ORDERED: SODIUM CHLORIDE 1,000 ML IV SCH (11:45)
--- NOTE | 2018-11-17 14:57 | PN ---
Physical Exam: SUBJECTIVE: Patient seen and examined at the bedside, there were no acute events overnight. Patient states she used the BiPAP at night and is feeling better. Feels her breathing problems have improved. OBJECTIVE: Vital Signs Period Temp Pulse Resp BP Sys/Maya Pulse Ox Last 24 Hr 97.9 F-98.9 F 67-77 18-18 122-141/72-100 96-100 GENERAL: The patient is awake, alert, and fully oriented, in no acute distress. HEAD: Normal with no signs of trauma. EYES: PERRL, extraocular movements intact, sclera anicteric, conjunctiva clear. No ptosis. ENT: Ears normal, nares patent, oropharynx clear without exudates, moist mucous membranes. NECK: Trachea midline, full range of motion, supple. LUNGS: Breath sounds equal, no wheezes, bibasilar crackles, no accessory muscle use, no wheezes. HEART: Regular rate and rhythm, S1, S2 without murmur, rub or gallop. ABDOMEN: Soft, nontender, nondistended, normoactive bowel sounds, no guarding, no rebound, no hepatosplenomegaly, no masses. EXTREMITIES: 2+ pulses, warm, well-perfused, no edema. NEUROLOGICAL: Cranial nerves II through XII grossly intact. Normal speech, gait not observed. PSYCH: Normal mood, normal affect. SKIN: Warm, dry, normal turgor, no rashes or lesions noted Laboratory Results - last 24 hr 11/17/18 11/17/18 05:20 05:20 WBC 9.6 RBC 3.19 L Hgb 10.5 L Hct 31.1 L MCV 97.5 H MCH 32.9 MCHC 33.7 RDW 15.0 Plt Count 221 MPV 9.8 Absolute Neuts (auto) 6.5 Neutrophils % 67.8 Lymphocytes % 21.4 D Monocytes % 8.3 Eosinophils % 1.9 D Basophils % 0.6 Nucleated RBC % 0 Sodium 138 Potassium 4.2 Chloride 102 Carbon Dioxide 29 Anion Gap 8 BUN 38.1 H Creatinine 1.5 H Est GFR (CKD-EPI)AfAm 46.60 Est GFR (CKD-EPI)NonAf 40.20 Random Glucose 85 Calcium 8.4 L Phosphorus 4.2 Magnesium 2.0 Total Bilirubin 0.3 AST 39 H ALT 73 H Alkaline Phosphatase 84 Total Protein 6.2 L Albumin 2.8 L Active Medications Generic Name Dose Route Start Last Admin Trade Name Freq PRN Reason Stop Dose Admin Albuterol Sulfate 1 amp 11/16/18 12:36 Ventolin 0.083% Nebulizer Soln - NEB Q4H PRN SHORT OF BREATH/WHEEZING Albuterol/Ipratropium 1 amp 11/16/18 16:00 11/17/18 11:08 Duoneb - NEB 1 amp RQID [facility] Administration Aspirin 81 mg 11/16/18 12:45 11/17/18 10:38 Asa - PO 81 mg DAILY [facility] Administration Budesonide/Formoterol Fumarate 2 puff 11/16/18 13:00 11/17/18 10:38 Symbicort 80/4.5mcg - IH Not Given BID FR[facility]I Furosemide 20 mg 11/18/18 10:00 Lasix - PO DAILY [facility] Heparin Sodium (Porcine) 5,000 unit 11/16/18 14:30 11/17/18 13:31 Heparin - SQ 5,000 unit TID [facility]EDI Administration Sodium Chloride 1,000 mls @ 50 mls/hr 11/17/18 11:45 11/17/18 13:33 Normal Saline - IV 11/18/18 07:44 50 mls/hr ASDIR FREDI Administration Lisinopril 5 mg 11/16/18 12:45 11/17/18 10:38 Prinivil PO 5 mg DAILY [facility] Administration Metoprolol Succinate 25 mg 11/16/18 12:45 11/17/18 10:38 Toprol Xl - PO 25 mg BID FREDI Administration ASSESSMENT/PLAN: 52 yo F with a PMHx of polysubstane abuse (heroin,alcohol), CHF, Asthma, AICD placement (reports [place], and "heart stopping"), presenting to the ER from [facility] with worsening SOB over the last few days. #SOB- acute diastolic CHF exacerbation vs. COPD exacerbation -CXR w/ congestive changes w/ questionable infiltrate @ L base -Lasix 40mg given yesterday> pt cr worsened to 1.5 today, D/C'd IV Lasix -Nephrology consulted, Dr. Contreras following, appreciate recommendations -Cont Lasix 20mg PO -Hold lisinopril due to worsening creatinine -Hold fluids -Renal U/S showing hyperechoic kidney with mild hydronephrosis, consider urology eval -daily weights, strict i/o's -Echo showing reduced EF of 45-50%, mild LV dilation, mild decrease in LV systolic function, mild global hypokenesis of LV. Moderate-severe tricuspid regurg -tele monitoring> NSR -cardiac consult: Dr. Hinton following, appreciate recommendations -outpt f/u of chf and ICD monitoring (if can determine the order department supervisor of her device, can check while here) - per pt, questionable hx of CAD --> reports history of "heart attack" when incarcerated 2009--denies stents -cont home regimen aspirin, not on statin--defer to outpt f/u -pulm consult: Dr. Vidal following, appreciae recommendations -O2 as needed -NIPPV as needed -On discharge should be on LAMA/LABA -Outpatient PFTs once stable -Duonebs QID -Albuterol PRN as needed -cont. Bipap as needed #CAD/HTN -cont ASA, metoprolol, -D/C lisinopril # Elevated LFTs -trending down -continue to monitor #Polysubstance abuse -not withdrawing at this time -addiction medicine consult #FEN -no iv fluids, encourage PO intake -monitor lytes -sodium diet #Dvt -hep sq Visit type - Emergency Visit Emergency Visit: Yes ED Registration Date: 11/16/18 Care time: The patient presented to the Emergency Department on the above date and was hospitalized for further evaluation of their emergent condition. - New Patient This patient is new to me today: Yes Date on this admission: 11/17/18 - Critical Care Critical Care patient: No - Discharge Referral Referred to [facility] Med P.C.: No ATTENDING PHYSICIAN STATEMENT I saw and evaluated the patient. I reviewed the resident's note and discussed the case with the resident. I agree with the resident's findings and plan as documented. SUBJECTIVE: OBJECTIVE: ASSESSMENT AND PLAN:
[2018-11-17] MEDS ORDERED: AZITHROMYCIN 250 MG TABLET PO SCH (15:15)
--- NOTE | 2018-11-17 15:45 | CONSULT ---
Consult Consult Specialty:: Nephrology Reason for Consultation:: HANANE - History of Present Illness Chief Complaint: shortness of breath History of Present Illness: PT is a 52 year old female with pmhx of chf, copd and polysubstance abuse who presents to the ER with increased shortness of breath. SHe says that it has been gradual in onset and worse when she lays down. She was sent in from detox for hypoxia. She was given a dose of lasix and her creatinien worsened. She denies history of ckd. She denies nsaid use. She denies dysuria or hematuria. - History Source History Provided By: Patient, Medical Record - Past Medical History Pulmonary: Yes: Asthma, Bronchitis ...LMP: 11/10/18 ...: No - Alcohol/Substance Use Hx Alcohol Use: Yes - Smoking History Smoking history: Current some day smoker Have you smoked in the past 12 months: Yes Aproximately how many cigarettes per day: 10 Home Medications - Allergies Allergies/Adverse Reactions: Allergies Allergy/AdvReac Type Severity Reaction Status Date / Time Penicillins Allergy Severe Hives Verified 11/16/18 03:05 - Home Medications Home Medications: Ambulatory Orders Aspirin 81 mg PO DAILY 06/27/18 Albuterol Sulfate Inhaler - [Ventolin HFA Inhaler -] 2 inh PO Q4H PRN #1 inhaler 07/01/18 Budesonide/Formeterol Fumarate [SYMBICORT 80/4.5mcg -] 12 puff IH BID #1 inhaler 07/01/18 Lisinopril 5 mg PO DAILY #30 tablet 07/01/18 Metoprolol Succinate 25 mg PO BID #60 tab.er.24h 07/01/18 Family Disease History - Family Disease History Family Disease History: Heart Disease: Father (ASTHMA, OF HEART DISEASE), Respiratory: Father, Other: Brother (ALCOHOLIC) Review of Systems - Review of Systems Constitutional: reports: Malaise Eyes: reports: No Symptoms HENT: reports: No Symptoms Neck: reports: No Symptoms Cardiovascular: reports: Edema, Shortness of Breath Respiratory: reports: Cough, SOB on Exertion Genitourinary: reports: No Symptoms Musculoskeletal: reports: No Symptoms Integumentary: reports: No Symptoms Neurological: reports: No Symptoms Endocrine: reports: No Symptoms Hematology/Lymphatic: reports: No Symptoms Psychiatric: reports: No Symptoms Physical Exam Vital Signs: Vital Signs Temperature 97.8 F 11/17/18 15:03 Pulse Rate 68 11/17/18 15:03 Respiratory Rate 28 H 11/17/18 15:03 Blood Pressure 141/81 11/17/18 15:03 O2 Sat by Pulse Oximetry (%) 99 11/17/18 11:07 Constitutional: Yes: Calm Eyes: Yes: Conjunctiva Clear HENT: Yes: Atraumatic Neck: Yes: Supple Cardiovascular: Yes: S1, S2 Respiratory: Yes: On Nasal O2, Rhonchi Gastrointestinal: Yes: Soft Renal/: Yes: WNL Musculoskeletal: Yes: WNL Edema: No Neurological: Yes: Oriented Psychiatric: Yes: Oriented Labs: CBC, BMP 11/17/18 05:20 11/17/18 05:20 Laboratory Tests 11/15/18 11/16/18 11/16/18 07:50 03:30 04:20 WBC Hgb Sodium BUN Creatinine 1.2 1.2 1.1 HIV 1&2 Ag/Ab, 4th Gen 11/17/18 11/17/18 11/17/18 05:20 05:20 05:20 WBC 9.6 Hgb 10.5 L Sodium 138 BUN 38.1 H Creatinine 1.5 H HIV 1&2 Ag/Ab, 4th Gen Pending Imaging - Results Ultrasound: Report Reviewed Problem List - Problems (1) CHF exacerbation Code(s): I50.9 - HEART FAILURE, UNSPECIFIED Qualifiers: Heart failure type: unspecified Qualified Code(s): I50.9 - Heart failure, unspecified (2) Cocaine dependence Code(s): F14.20 - COCAINE DEPENDENCE, UNCOMPLICATED Qualifiers: Substance use status: uncomplicated Qualified Code(s): F14.20 - Cocaine dependence, uncomplicated (3) Opiate dependence Code(s): F11.20 - OPIOID DEPENDENCE, UNCOMPLICATED (4) Renal insufficiency Code(s): N28.9 - DISORDER OF KIDNEY AND URETER, UNSPECIFIED Assessment/Plan Current Medications Generic Name Dose Route Start Last Admin Trade Name Freq PRN Reason Stop Dose Admin Albuterol Sulfate 1 amp 11/16/18 12:36 Ventolin 0.083% Nebulizer Soln - NEB Q4H PRN SHORT OF BREATH/WHEEZING Albuterol/Ipratropium 1 amp 11/16/18 16:00 11/17/18 15:28 Duoneb - NEB 1 amp RQID FREDI Administration Aspirin 81 mg 11/16/18 12:45 11/17/18 10:38 Asa - PO 81 mg DAILY FREDI Administration Azithromycin 250 mg 11/18/18 10:00 Zithromax - PO 11/20/18 10:01 DAILY FREDI Budesonide/Formoterol Fumarate 2 puff 11/16/18 13:00 11/17/18 10:38 Symbicort 80/4.5mcg - IH Not Given BID [facility] Furosemide 20 mg 11/18/18 10:00 Lasix - PO DAILY [facility] Heparin Sodium (Porcine) 5,000 unit 11/16/18 14:30 11/17/18 13:31 Heparin - SQ 5,000 unit TID FREDI Administration Sodium Chloride 1,000 mls @ 50 mls/hr 11/17/18 11:45 11/17/18 13:33 Normal Saline - IV 11/18/18 07:44 50 mls/hr ASDIR FREDI Administration Lisinopril 5 mg 11/16/18 12:45 11/17/18 10:38 Prinivil PO 5 mg DAILY [facility] Administration Metoprolol Succinate 25 mg 11/16/18 12:45 11/17/18 10:38 Toprol Xl - PO 25 mg BID [facility] Administration Impression 1. HANANE 2. chf 3. polysubstance abuse 4. dyspnea 5. anemia 6. mild left hydro Plan - hold lisinopril - stop fluids - po lasix - repeat labs in am - urology eval for hydro
[2018-11-17] MEDS ORDERED: ACETAMINOPHEN 325 MG TABLET (FP) PO PRN (16:29)
[2018-11-17 21:32] LABS: PH,URINE 6.5 (5.0-8.0); URINE APPEARANCE CLEAR; URINE BILIRUBIN NEGATIVE (NEGATIVE); URINE COLOR YELLOW; URINE GLUCOSE (UA) NEGATIVE (NEGATIVE); URINE KETONE NEGATIVE (NEGATIVE); URINE LEUK ESTERASE NEGATIVE (NEGATIVE); URINE NITRITE NEGATIVE (NEGATIVE); URINE PROTEIN NEGATIVE (NEGATIVE); URINE UROBILINOGEN 0.2 mg/dL (0.2-1.0)
--- NOTE | 2018-11-17 21:39 | PN ---
Teaching Attending Note Name of Resident: Mary Henao ATTENDING PHYSICIAN STATEMENT I saw and evaluated the patient. I reviewed the resident's note and discussed the case with the resident. I agree with the resident's findings and plan as documented. SUBJECTIVE: Patient is feeling better with no acute distress, no nausea or vomiting. OBJECTIVE: Vital Signs Temperature 98.1 F 11/17/18 19:28 Pulse Rate 77 11/17/18 19:28 Respiratory Rate 20 11/17/18 19:28 Blood Pressure 129/89 11/17/18 19:28 O2 Sat by Pulse Oximetry (%) 98 11/17/18 20:39 GENERAL: The patient is awake, alert, and fully oriented, in no acute distress. HEAD: Normal with no signs of trauma. EYES: PERRL, extraocular movements intact, sclera anicteric, conjunctiva clear. ENT: Ears normal, oropharynx clear without exudates, moist mucous membranes. NECK: Trachea midline, full range of motion, supple. LUNGS: decreased BSs BL but improving , no wheezes, no crackles, no accessory muscle use. HEART: mild tachycardia , with normal rate and rhythm, S1, S2 positive, no rub or gallop. ABDOMEN: Soft, nontender, nondistended, normoactive bowel sounds, no guarding, no rebound, no hepatosplenomegaly, no masses. EXTREMITIES: 2+ pulses, warm, well-perfused, no edema. NEUROLOGICAL: Cranial nerves II through XII grossly intact. Normal speech. PSYCH: Normal mood, normal affect. SKIN: Warm, dry, normal turgor, no rashes or lesions noted CBCD WBC 9.6 K/mm3 (4.0-10.0) 11/17/18 05:20 RBC 3.19 M/mm3 (3.60-5.2) L 11/17/18 05:20 Hgb 10.5 GM/dL (10.7-15.3) L 11/17/18 05:20 Hct 31.1 % (32.4-45.2) L 11/17/18 05:20 MCV 97.5 fl (80-96) H 11/17/18 05:20 MCHC 33.7 g/dl (32.0-36.0) 11/17/18 05:20 RDW 15.0 % (11.6-15.6) 11/17/18 05:20 Plt Count 221 K/MM3 (134-434) 11/17/18 05:20 MPV 9.8 fl (7.5-11.1) 11/17/18 05:20 CMP Sodium 138 mmol/L (136-145) 11/17/18 05:20 Potassium 4.2 mmol/L (3.5-5.1) 11/17/18 05:20 Chloride 102 mmol/L (98-107) 11/17/18 05:20 Carbon Dioxide 29 mmol/L (21-32) 11/17/18 05:20 Anion Gap 8 MMOL/L (8-16) 11/17/18 05:20 BUN 38.1 mg/dL (7-18) H 11/17/18 05:20 Creatinine 1.5 mg/dL (0.55-1.3) H 11/17/18 05:20 Random Glucose 85 mg/dL (74-106) 11/17/18 05:20 Calcium 8.4 mg/dL (8.5-10.1) L 11/17/18 05:20 Total Bilirubin 0.3 mg/dL (0.2-1) 11/17/18 05:20 AST 39 U/L (15-37) H 11/17/18 05:20 ALT 73 U/L (13-61) H 11/17/18 05:20 Alkaline Phosphatase 84 U/L (45-117) 11/17/18 05:20 Total Protein 6.2 g/dl (6.4-8.2) L 11/17/18 05:20 Albumin 2.8 g/dl (3.4-5.0) L 11/17/18 05:20 CARDIAC ENZYMES Creatine Kinase 161 U/L (26-192) 11/16/18 03:30 Troponin I < 0.02 ng/ml (0.00-0.05) 11/16/18 11:09 Current Medications Generic Name Dose Route Start Last Admin Trade Name Freq PRN Reason Stop Dose Admin Acetaminophen 650 mg 11/17/18 16:29 11/17/18 16:47 Tylenol - PO 650 mg Q6H PRN Administration Fever Or Pain Albuterol Sulfate 1 amp 11/16/18 12:36 Ventolin 0.083% Nebulizer Soln - NEB Q4H PRN SHORT OF BREATH/WHEEZING Albuterol/Ipratropium 1 amp 11/16/18 16:00 11/17/18 20:21 Duoneb - NEB 1 amp RQID FREDI Administration Aspirin 81 mg 11/16/18 12:45 11/17/18 10:38 Asa - PO 81 mg DAILY FREDI Administration Azithromycin 250 mg 11/18/18 10:00 Zithromax - PO 11/20/18 10:01 DAILY FREDI Budesonide/Formoterol Fumarate 2 puff 11/16/18 13:00 11/17/18 10:38 Symbicort 80/4.5mcg - IH Not Given BID FREDI Furosemide 20 mg 11/18/18 10:00 Lasix - PO DAILY [facility] Heparin Sodium (Porcine) 5,000 unit 11/16/18 14:30 11/17/18 13:31 Heparin - SQ 5,000 unit TID FREDI Administration Metoprolol Succinate 25 mg 11/16/18 12:45 11/17/18 10:38 Toprol Xl - PO 25 mg BID FREDI Administration Home Medications Medication Instructions Recorded Aspirin 81 mg PO DAILY 06/27/18 Albuterol Sulfate Inhaler - 2 inh PO Q4H PRN #1 inhaler 07/01/18 [Ventolin HFA Inhaler -] Budesonide/Formeterol Fumarate 12 puff IH BID #1 inhaler 07/01/18 [SYMBICORT 80/4.5mcg -] Lisinopril 5 mg PO DAILY #30 tablet 07/01/18 Metoprolol Succinate 25 mg PO BID #60 tab.er.24h 07/01/18 CXR: pulmonary congestion , PPM , ASSESSMENT AND PLAN: Patient is a 52yo woman with a PMHx of CHF, COPD, polysubstance abuse who presents from detox with worsening SOB, orthopnea, and hypoxia to the 80's tonight. She endorses needing CPAP in the past for difficulty breathing. # Acute diastolic CHF exacerbation given IV Lasix , will continue with po lasix 20mg daily , lisinopril, lopressor home meds continue, troponins x 2 negative. # ACUTE COPD exacerbation. ON BIPAP as needed , continue homed meds, and neb treatments, pulmonary consult # Polysubstance abuse: detox consult DVT px:heparin
[2018-11-18] MEDS: HEPARIN NA (PORCINE) 5,000 UNITS/ML 1ML VIAL SQ SCH (05:17)
[2018-11-18 06:16] LABS: HEMOGLOBIN 9.9 GM/dL (10.7-15.3); MCH 32.7 pg (25.7-33.7); MEAN CELL VOLUME 99.1 fl (80-96); MEAN PLT VOLUME 9.8 fl (7.5-11.1); PLATELET COUNT 228 K/MM3 (134-434); RBC 3.03 M/mm3 (3.60-5.2); RDW 15.1 % (11.6-15.6); WHITE BLOOD COUNT 6.1 K/mm3 (4.0-10.0)
[2018-11-18 06:25] LABS: ALBUMIN 2.7 g/dl (3.4-5.0); BILIRUBIN,TOTAL 0.4 mg/dL (0.2-1); BLOOD UREA NITROGEN 39.6 mg/dL (7-18); CALCIUM 8.6 mg/dL (8.5-10.1); CREATININE 1.1 mg/dL (0.55-1.3); POTASSIUM 4.4 mmol/L (3.5-5.1); TOT PROT 6.1 g/dl (6.4-8.2)
--- NOTE | 2018-11-18 08:19 | PN ---
Teaching Attending Note Name of Resident: Mary Henao ATTENDING PHYSICIAN STATEMENT I saw and evaluated the patient. I reviewed the resident's note and discussed the case with the resident. I agree with the resident's findings and plan as documented. SUBJECTIVE: Patient feels better with no acute distress . wants to go home. OBJECTIVE: Vital Signs Temperature 97.8 F 11/18/18 05:58 Pulse Rate 67 11/18/18 05:58 Respiratory Rate 20 11/18/18 05:58 Blood Pressure 157/84 11/18/18 05:58 O2 Sat by Pulse Oximetry (%) 98 11/17/18 21:00 GENERAL: The patient is awake, alert, and fully oriented, in no acute distress. HEAD: Normal with no signs of trauma. EYES: PERRL, extraocular movements intact, sclera anicteric, conjunctiva clear. ENT: Ears normal, oropharynx clear without exudates, moist mucous membranes. NECK: Trachea midline, full range of motion, supple. LUNGS: decreased BSs BL , no wheezes, no crackles, no accessory muscle use. HEART: RRR, S1, S2 positive, no rub or gallop. ABDOMEN: Soft, NT,ND, +BS, no guarding, no rebound, no hepatosplenomegaly, no masses. EXTREMITIES: 2+ pulses, warm, well-perfused, no edema. NEUROLOGICAL: Cranial nerves II through XII grossly intact. Normal speech. PSYCH: Normal mood, normal affect. SKIN: Warm, dry, normal turgor, no rashes or lesions noted CBCD WBC 6.1 K/mm3 (4.0-10.0) 11/18/18 05:15 RBC 3.03 M/mm3 (3.60-5.2) L 11/18/18 05:15 Hgb 9.9 GM/dL (10.7-15.3) L 11/18/18 05:15 Hct 30.0 % (32.4-45.2) L 11/18/18 05:15 MCV 99.1 fl (80-96) H 11/18/18 05:15 MCHC 33.0 g/dl (32.0-36.0) 11/18/18 05:15 RDW 15.1 % (11.6-15.6) 11/18/18 05:15 Plt Count 228 K/MM3 (134-434) 11/18/18 05:15 MPV 9.8 fl (7.5-11.1) 11/18/18 05:15 CMP Sodium 138 mmol/L (136-145) 11/18/18 05:15 Potassium 4.4 mmol/L (3.5-5.1) 11/18/18 05:15 Chloride 107 mmol/L (98-107) 11/18/18 05:15 Carbon Dioxide 25 mmol/L (21-32) 11/18/18 05:15 Anion Gap 6 MMOL/L (8-16) L 11/18/18 05:15 BUN 39.6 mg/dL (7-18) H 11/18/18 05:15 Creatinine 1.1 mg/dL (0.55-1.3) 11/18/18 05:15 Random Glucose 95 mg/dL (74-106) 11/18/18 05:15 Calcium 8.6 mg/dL (8.5-10.1) 11/18/18 05:15 Total Bilirubin 0.4 mg/dL (0.2-1) 11/18/18 05:15 AST 22 U/L (15-37) 11/18/18 05:15 ALT 52 U/L (13-61) 11/18/18 05:15 Alkaline Phosphatase 82 U/L (45-117) 11/18/18 05:15 Total Protein 6.1 g/dl (6.4-8.2) L 11/18/18 05:15 Albumin 2.7 g/dl (3.4-5.0) L 11/18/18 05:15 CARDIAC ENZYMES Creatine Kinase 161 U/L (26-192) 11/16/18 03:30 Troponin I < 0.02 ng/ml (0.00-0.05) 11/16/18 11:09 Current Medications Generic Name Dose Route Start Last Admin Trade Name Freq PRN Reason Stop Dose Admin Acetaminophen 650 mg 11/17/18 16:29 11/17/18 16:47 Tylenol - PO 650 mg Q6H PRN Administration Fever Or Pain Albuterol Sulfate 1 amp 11/16/18 12:36 Ventolin 0.083% Nebulizer Soln - NEB Q4H PRN SHORT OF BREATH/WHEEZING Albuterol/Ipratropium 1 amp 11/16/18 16:00 11/17/18 20:21 Duoneb - NEB 1 amp RQID FREDI Administration Aspirin 81 mg 11/16/18 12:45 11/17/18 10:38 Asa - PO 81 mg DAILY [facility]I Administration Azithromycin 250 mg 11/18/18 10:00 Zithromax - PO 11/20/18 10:01 DAILY [facility]I Budesonide/Formoterol Fumarate 2 puff 11/16/18 13:00 11/17/18 22:25 Symbicort 80/4.5mcg - IH Not Given BID [facility] Furosemide 20 mg 11/18/18 10:00 Lasix - PO DAILY [facility] Heparin Sodium (Porcine) 5,000 unit 11/16/18 14:30 11/18/18 05:17 Heparin - SQ 5,000 unit TID FREDI Administration Metoprolol Succinate 25 mg 11/16/18 12:45 11/17/18 21:43 Toprol Xl - PO 25 mg BID FREDI Administration Home Medications Medication Instructions Recorded Aspirin 81 mg PO DAILY 06/27/18 Albuterol Sulfate Inhaler - 2 inh PO Q4H PRN #1 inhaler 07/01/18 [Ventolin HFA Inhaler -] Budesonide/Formeterol Fumarate 12 puff IH BID #1 inhaler 07/01/18 [SYMBICORT 80/4.5mcg -] Lisinopril 5 mg PO DAILY #30 tablet 07/01/18 Metoprolol Succinate 25 mg PO BID #60 tab.er.24h 07/01/18 CXR: pulmonary congestion , PPM , ASSESSMENT AND PLAN: Patient is a 52yo woman with a PMHx of CHF, COPD, polysubstance abuse who presents from detox with worsening SOB, orthopnea, and hypoxia to the 80's tonight. She endorses needing CPAP in the past for difficulty breathing. # Acute diastolic CHF exacerbation given Lasix , will continue with oral lasix 20mg , lisinopril, lopressor home meds continue, ACS was rulled out; troponins x 2 negative. # ACUTE COPD exacerbation. s/p BIPAP, continue homed meds, and neb treatments, pulmonary appreciated # Polysubstance abuse: patient is requesting to home. dc patient home
[2018-11-18] MEDS: ALBUTEROL SO4 2.5/IPRATROPIUM 0.5 INH SOL 3 ML VIAL.NEB. NEB SCH ×2 (08:26→12:02)
[2018-11-18] MEDS ORDERED: AZITHROMYCIN 250 MG TABLET PO SCH (10:00)
[2018-11-18] MEDS ORDERED: FUROSEMIDE 20 MG TABLET (FP) PO SCH (10:00)
[2018-11-18] MEDS: ASPIRIN 81 MG CHEWABLE TABLETS PO SCH (10:53)
[2018-11-18] MEDS: metoPROLOL SUCCINATE 25 MG TAB.SR.24H (FP) PO SCH (10:53)
[2018-11-18] MEDS: BUDESONIDE/FORMETEROL FUMARATE 80/4.5 mcg INHALER IH SCH (10:53)
--- NOTE | 2018-11-18 11:37 | PN ---
Progress Note, Physician - Current Medication List Current Medications: Active Medications Acetaminophen (Tylenol -) 650 mg PO Q6H PRN PRN Reason: Fever Or Pain Last Admin: 11/17/18 16:47 Dose: 650 mg Albuterol Sulfate (Ventolin 0.083% Nebulizer Soln -) 1 amp NEB Q4H PRN PRN Reason: SHORT OF BREATH/WHEEZING Albuterol/Ipratropium (Duoneb -) 1 amp NEB RQID [facility] Last Admin: 11/18/18 08:26 Dose: 1 amp Aspirin (Asa -) 81 mg PO DAILY [facility] Last Admin: 11/18/18 10:53 Dose: 81 mg Azithromycin (Zithromax -) 250 mg PO DAILY [facility] Stop: 11/20/18 10:01 Last Admin: 11/18/18 10:53 Dose: 250 mg Budesonide/Formoterol Fumarate (Symbicort 80/4.5mcg -) 2 puff IH BID [facility] Last Admin: 11/18/18 10:53 Dose: Not Given Furosemide (Lasix -) 20 mg PO DAILY [facility] Last Admin: 11/18/18 10:53 Dose: 20 mg Heparin Sodium (Porcine) (Heparin -) 5,000 unit SQ TID [facility] Last Admin: 11/18/18 05:17 Dose: 5,000 unit Metoprolol Succinate (Toprol Xl -) 25 mg PO BID [facility] Last Admin: 11/18/18 10:53 Dose: 25 mg - Objective Vital Signs: Vital Signs Temperature 97.8 F 11/18/18 05:58 Pulse Rate 67 11/18/18 05:58 Respiratory Rate 20 11/18/18 05:58 Blood Pressure 157/84 11/18/18 05:58 O2 Sat by Pulse Oximetry (%) 98 11/17/18 21:00 Labs: CBC, BMP 11/18/18 05:15 11/18/18 05:15 Assessment/Plan Problem List - Problems (1) Alcohol dependence with uncomplicated withdrawal Code(s): F10.230 - ALCOHOL DEPENDENCE WITH WITHDRAWAL, UNCOMPLICATED (2) Anemia Code(s): D64.9 - ANEMIA, UNSPECIFIED (3) CHF exacerbation Code(s): I50.9 - HEART FAILURE, UNSPECIFIED Qualifiers: Heart failure type: unspecified Qualified Code(s): I50.9 - Heart failure, unspecified (4) Cocaine dependence Code(s): F14.20 - COCAINE DEPENDENCE, UNCOMPLICATED Qualifiers: Substance use status: uncomplicated Qualified Code(s): F14.20 - Cocaine dependence, uncomplicated (5) Opiate dependence Code(s): F11.20 - OPIOID DEPENDENCE, UNCOMPLICATED (6) HTN (hypertension) Code(s): I10 - ESSENTIAL (PRIMARY) HYPERTENSION Qualifiers: Hypertension type: essential hypertension Qualified Code(s): I10 - Essential (primary) hypertension (7) Schizoaffective disorder Code(s): F25.9 - SCHIZOAFFECTIVE DISORDER, UNSPECIFIED (8) Substance-induced sleep disorder Code(s): F19.982 - OTH PSYCHOACTIVE SUBSTANCE USE, UNSP W SLEEP DISORDER (9) Asthma Code(s): J45.909 - UNSPECIFIED ASTHMA, UNCOMPLICATED Qualifiers: Asthma severity: mild Asthma persistence: intermittent Asthma complication type: with status asthmaticus Qualified Code(s): J45.22 - Mild intermittent asthma with status asthmaticus (10) Bipolar II disorder Code(s): F31.81 - BIPOLAR II DISORDER (11) CAD (coronary artery disease) Code(s): I25.10 - ATHSCL HEART DISEASE OF [place] CORONARY ARTERY W/O ANG PCTRS Qualifiers: Coronary Disease-Associated Artery/Lesion type: unspecified vessel or lesion type [place] vs. transplanted heart: unspecified whether [place] or transplanted heart Associated angina: with unspecified angina Qualified Code (s): I25.119 - Atherosclerotic heart disease of [place] coronary artery with unspecified angina pectoris (12) COPD (chronic obstructive pulmonary disease) Code(s): J44.9 - CHRONIC OBSTRUCTIVE PULMONARY DISEASE, UNSPECIFIED (13) HLD (hyperlipidemia) Code(s): E78.5 - HYPERLIPIDEMIA, UNSPECIFIED (14) ICD (implantable cardioverter-defibrillator) in place Code(s): Z95.810 - PRESENCE OF AUTOMATIC (IMPLANTABLE) CARDIAC DEFIBRILLATOR (15) Nicotine dependence Code(s): F17.200 - NICOTINE DEPENDENCE, UNSPECIFIED, UNCOMPLICATED Qualifiers: Nicotine product type: cigarettes Substance use status: uncomplicated Qualified Code(s): F17.210 - Nicotine dependence, cigarettes, uncomplicated (16) Non-compliance Code(s): Z91.19 - PATIENT'S NONCOMPLIANCE W OTH MEDICAL TREATMENT AND REGIMEN Assessment/Plan Lasix O2 as needed NIPPV as needed Doubt true AE of Asthma (More likely COPD due to smoking) Daily weights Follow I & O No smoking On discharge should be on LAMA/LABA VTE prophylaxis Outpatient PFTs once stable DR MENENDEZ
[2018-11-18 11:47] VITALS: BP 142/93; PULSE 71; TEMP 98
--- NOTE | 2018-11-18 12:53 | DS ---
Physical Exam: SUBJECTIVE: Patient seen and examined at the bedside, appears well. States she is feeling good and her breathing has improved. Takes this hospitalization as a "sign" that she shouldn't continue with inpatient rehab at this moment in time. OBJECTIVE: Vital Signs Period Temp Pulse Resp BP Sys/Maya Pulse Ox Last 24 Hr 97.3 F-98.3 F 67-77 18-28 124-157/78-93 98-100 PHYSICAL EXAM GENERAL: The patient is awake, alert, and fully oriented, in no acute distress. HEAD: Normal with no signs of trauma. EYES: PERRL, extraocular movements intact, sclera anicteric, conjunctiva clear. No ptosis. ENT: Ears normal, nares patent, oropharynx clear without exudates, moist mucous membranes. NECK: Trachea midline, full range of motion, supple. LUNGS: Breath sounds equal, no wheezes, bibasilar crackles, no accessory muscle use, no wheezes. HEART: Regular rate and rhythm, S1, S2 without murmur, rub or gallop. ABDOMEN: Soft, nontender, nondistended, normoactive bowel sounds, no guarding, no rebound, no hepatosplenomegaly, no masses. EXTREMITIES: 2+ pulses, warm, well-perfused, no edema. NEUROLOGICAL: Cranial nerves II through XII grossly intact. Normal speech, gait not observed. PSYCH: Normal mood, normal affect. SKIN: Warm, dry, normal turgor, no rashes or lesions noted LABS Laboratory Results - last 24 hr 11/17/18 11/17/18 11/17/18 05:20 19:35 19:35 WBC RBC Hgb Hct MCV MCH MCHC RDW Plt Count MPV Sodium Potassium Chloride Carbon Dioxide Anion Gap BUN Creatinine Est GFR (CKD-EPI)AfAm Est GFR (CKD-EPI)NonAf Random Glucose Calcium Total Bilirubin AST ALT Alkaline Phosphatase Total Protein Albumin Urine Color Urine Appearance Urine pH Ur Specific [place] Urine Protein Urine Glucose (UA) Urine Ketones Urine Blood Urine Nitrite Urine Bilirubin Urine Urobilinogen Ur Leukocyte Esterase Ur Random Creatinine 41.0 Ur Random Sodium 35 L Ur Random Potassium 21.0 L Ur Random Chloride < 11 L HIV 1&2 Ag/Ab, 4th Gen Non reactive 11/17/18 11/18/18 11/18/18 19:35 05:15 05:15 WBC 6.1 RBC 3.03 L Hgb 9.9 L Hct 30.0 L MCV 99.1 H MCH 32.7 MCHC 33.0 RDW 15.1 Plt Count 228 MPV 9.8 Sodium 138 Potassium 4.4 Chloride 107 Carbon Dioxide 25 Anion Gap 6 L BUN 39.6 H Creatinine 1.1 Est GFR (CKD-EPI)AfAm 67.79 Est GFR (CKD-EPI)NonAf 58.49 Random Glucose 95 Calcium 8.6 Total Bilirubin 0.4 AST 22 ALT 52 Alkaline Phosphatase 82 Total Protein 6.1 L Albumin 2.7 L Urine Color Yellow Urine Appearance Clear Urine pH 6.5 Ur Specific [place] 1.010 Urine Protein Negative Urine Glucose (UA) Negative Urine Ketones Negative Urine Blood Negative Urine Nitrite Negative Urine Bilirubin Negative Urine Urobilinogen 0.2 Ur Leukocyte Esterase Negative Ur Random Creatinine Ur Random Sodium Ur Random Potassium Ur Random Chloride HIV 1&2 Ag/Ab, 4th [facility] HOSPITAL COURSE: Date of Admission:11/16/18 52 yo F with a PMHx of polysubstane abuse (heroin,alcohol), CHF, Asthma, AICD placement (reports [place], and "heart stopping"), presenting to the ER from [facility] with worsening SOB over the last few days. Her workup included a CXR which revealed congestive changes w/ questionable infiltrate @ L base. She also had an echo done which revealed reduced EF of 45-50%, mild LV dilation, mild decrease in LV systolic function, mild global hypokenesis of LV and moderate- severe tricuspid regurg. The patient was given 40mg IV lasix and the patient's SOB improved however her Cr worsened. IV lasix was d/c'd and PO lasix at 20mg was begun. The patient was also started on albuterol and duonebs. During her hospitalization nephrology, cardiology, and pulmonology examined the patient. She was discharged with plans to follow up with cardiology f/u chf and ICD monitoring (if can determine the seafood fisherman of her device, can check while here). Additionally patient had questionable hx of CAD and will need outpt workup. It was incidentally found on renal U/S showing that the patient had hyperechoic kidney with mild hydronephrosis. She was advised to follow up with urologist as outpt. Patient elected not to return to rehab for her polysubstance abuse on discharge. Date of Discharge: 11/18/18 Minutes to complete discharge: 40 Discharge Summary Reason For Visit: CONGESTIVE HEART FAILURE Current Active Problems CHF exacerbation (Acute) Condition: Stable - Instructions Diet, Activity, Other Instructions: You were in the hospital because you had worsening shortness of breath while you were staying in [facility]. While you were in the hospital we did a chest x- ray which showed some congestive changes. We gave you Lasix, which is a pill that helps decrease the amount of fluid in your body, and your symptoms improved. We also did an Ultra sound of your heart which showed decreased slightely of the heart function. You will need to follow up with a cable dispatcher as an outpatient. We also did an ultrasound of your kidneys which showed some fluid in your left kidney.You will need to follow up with a urologist. Finally, a pulmonoligist saw you while you were in the hospital and they recommended you use your BiPAP machine as needed to help your breathing. You will also need to follow up with the sales representative girls' apparel for pulmonary function tests when you are discharged. Please see the following doctors within 1 week of discharge from the hospital: - Dr. Hinton, the cardiologyist, to evaluate your coronary artery disease and CHF - Dr. Vidal, the sales representative girls' apparel, to do pulmonary function testing - Dr. Ferrari, a primary care doctor, we are referring you because you do not have a primary care doctor on file. [phone]. - Dr. Salomon, urologist, to follow up about your kidney. Please return to the Emergency Department immediately if you have shortness of breath, find it difficult to breath, or have chest pain. Referrals: Timbo Ferrari MD [Staff Physician] - 1 Week Danny Vidal MD [Staff Physician] - 1 Week Michael Hinton MD [Staff Physician] - 1 Week Carlos A Salomon MD [Staff Physician] - 1 Week Disposition: HOME - Home Medications Comprehensive Discharge Medication List: Ambulatory Orders Aspirin 81 mg PO DAILY 06/27/18 Albuterol Sulfate Inhaler - [Ventolin HFA Inhaler -] 2 inh PO Q4H PRN #1 inhaler 07/01/18 Budesonide/Formeterol Fumarate [SYMBICORT 80/4.5mcg -] 12 puff IH BID #1 inhaler 07/01/18 Lisinopril 5 mg PO DAILY #30 tablet 07/01/18 Metoprolol Succinate 25 mg PO BID #60 tab.er.24h 07/01/18 This patient is new to me today: No Emergency Visit: Yes ED Registration Date: 11/16/18 Care time: The patient presented to the Emergency Department on the above date and was hospitalized for further evaluation of their emergent condition. Critical Care patient: No - Discharge Referral Referred to [facility] Med P.C.: No ATTENDING PHYSICIAN STATEMENT I saw and evaluated the patient. I reviewed the resident's note and discussed the case with the resident. I agree with the resident's findings and plan as documented. SUBJECTIVE: OBJECTIVE: ASSESSMENT AND PLAN:
== END 2018-11-18 12:30 | disposition home or self-care (01) | DRG 194 ==
LOC: JER 02:54 → INTOOBSV 05:29 → UNDOADMOB 05:29 → JERBED 05:29 → OBSVTOIN 05:29 → JERBED 10:08 → J4S 12:18
PROVIDERS: ADMIT Internal Medicine; ATTEND Internal Medicine
DX: I11.0 Hypertensive heart disease with heart failure (principal); J44.1 Chronic obstructive pulmonary disease with (acute) exacerbation; I25.10 Atherosclerotic heart disease of native coronary artery without angina pectoris; I25.2 Old myocardial infarction; F11.10 Opioid abuse, uncomplicated; F10.230 Alcohol dependence with withdrawal, uncomplicated; F17.210 Nicotine dependence, cigarettes, uncomplicated; F31.81 Bipolar II disorder; D64.9 Anemia, unspecified; I10 Essential (primary) hypertension; F25.9 Schizoaffective disorder, unspecified; N13.30 Unspecified hydronephrosis; N17.9 Acute kidney failure, unspecified; J45.22 Mild intermittent asthma with status asthmaticus; I50.33 Acute on chronic diastolic (congestive) heart failure; Z95.810 Presence of automatic (implantable) cardiac defibrillator; F14.20 Cocaine dependence, uncomplicated; F19.982 Other psychoactive substance use, unspecified with psychoactive substance-induced sleep disorder; E78.5 Hyperlipidemia, unspecified; Z91.19 Patient's noncompliance with other medical treatment and regimen
CPT/HCPCS: 36415; 71045-TC-FY; 76775-TC; 80053; 81003; 82436; 82550; 82553; 82565; 83605; 83735; 83880; 84100; 84133; 84300; 84484; 85025; 85027; 87040; 87389; 93005; 93010; 93306-TC; 94640; 94660; 99284-25; J1644; J7030

== ENCOUNTER 2019-03-25 | Emergency (ER) | payer OTHER ==
[2019-03-25 00:26] VITALS: PULSE 75; TEMP 98; BMI 23.0
--- NOTE | 2019-03-25 00:50 | PDOC ---
Attending Attestation - Resident Resident Name: Víctor Diggsson - ED Attending Attestation I have performed the following: I have examined & evaluated the patient, The case was reviewed & discussed with the resident, I agree w/resident's findings & plan - HPI HPI: 03/25/19 03:13 see resident hpi - Physicial Exam PE: 03/25/19 03:13 agree with resident - Medical Decision Making 03/25/19 03:13 53-year-old female sent from detox for medical clearance due to history of right -sided heart failure and pacemaker placement Patient has no complaints at this time Labs show no acute significant abnormality Will clear for detox and transfer back to facility
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
[2019-03-25 02:33] LABS: WHITE BLOOD COUNT 3.5 K/mm3 (4.0-10.0)
[2019-03-25 02:57] LABS: BASO % 2.8 % (0-2.0); EOS % 5.6 % (0-4.5); LYMPH % 40.6 % (8-40); MCHC 33.4 g/dl (32.0-36.0); MEAN CELL VOLUME 95.9 fl (80-96); MEAN PLT VOLUME 9.3 fl (7.5-11.1); MONO % 9.2 % (3.8-10.2); NEUT % 41.8 % (42.8-82.8); PLATELET COUNT 179 K/MM3 (134-434); RBC 3.13 M/mm3 (3.60-5.2); RDW 15.7 % (11.6-15.6)
[2019-03-25 03:04] LABS: BILIRUBIN,TOTAL 0.2 mg/dL (0.2-1); BLOOD UREA NITROGEN 29.8 mg/dL (7-18); CALCIUM 8.6 mg/dL (8.5-10.1); CREATININE 1.3 mg/dL (0.55-1.3); POTASSIUM 4.6 mmol/L (3.5-5.1); TOT PROT 6.3 g/dl (6.4-8.2)
[2019-03-25 08:16] VITALS: BP 130/68
--- NOTE | 2019-03-25 10:39 | EKG ---
Test Reason : Blood Pressure : / mmHG Vent. Rate : 080 BPM Atrial Rate : 080 BPM P-R Int : 152 ms QRS Dur : 086 ms QT Int : 390 ms P-R-T Axes : 074 048 082 degrees QTc Int : 449 ms NORMAL SINUS RHYTHM POSSIBLE LEFT ATRIAL ENLARGEMENT LEFT VENTRICULAR HYPERTROPHY ANTEROSEPTAL INFARCT (CITED ON OR BEFORE 19-JUL-2017) T WAVE ABNORMALITY, CONSIDER LATERAL ISCHEMIA ABNORMAL ECG WHEN COMPARED WITH ECG OF 16-NOV-2018 03:01, NO SIGNIFICANT CHANGE WAS FOUND Confirmed by JW CEBALLOS, MATTHEW ([id number]) on 03/25/2019 10:38:35 AM Referred By: Confirmed By:MATTHEW ESCALERA MD
== END 2019-03-25 08:43 | disposition home or self-care (01) ==
LOC: JER
DX: M25.551 Pain in right hip (principal); Z88.0 Allergy status to penicillin; F19.10 Other psychoactive substance abuse, uncomplicated; J45.909 Unspecified asthma, uncomplicated
CPT/HCPCS: 36415; 71046-TC-FY; 73523-TC-FY; 80053; 82550; 82553; 84484; 85025; 93005; 93010; 99285-25

== ENCOUNTER 2019-03-25 09:23 | Inpatient (IN) | payer OTHER ==
[2019-03-25 09:43] VITALS: BMI 21.6
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
[2019-03-25] MEDS ORDERED: chlordiazePOXIDE HCL 25 MG CAPSULE PO PRN (10:13)
[2019-03-25] MEDS ORDERED: MAGNESIUM CITRATE 300 ML BOTTLE PO PRN (10:13)
[2019-03-25] MEDS ORDERED: ACETAMINOPHEN 325 MG TABLET (FP) PO PRN ×2 (10:13)
[2019-03-25] MEDS ORDERED: MAG HYDROX/AL HYDROX/SIMETH 30 ML UNIT-DOSE CUP PO PRN (10:13)
[2019-03-25] MEDS ORDERED: IBUPROFEN 400 MG TABLET (FP) PO PRN (10:13)
[2019-03-25] MEDS ORDERED: METHOCARBAMOL 500 MG TABLET PO PRN (10:13)
[2019-03-25] MEDS ORDERED: BISMUTH SUBSALICYLATE 262 MG/15 ML BTL PO PRN (10:13)
[2019-03-25] MEDS ORDERED: MENTHOL/PHENOL 1 EACH UD MM PRN (10:13)
[2019-03-25] MEDS ORDERED: MAGNESIUM HYDROX 2400MG/30ML ORAL SUSPENSION 30 ML CUP PO PRN (10:13)
[2019-03-25] MEDS ORDERED: MELATONIN 5 MG TABLETS PO PRN (10:13)
[2019-03-25] MEDS ORDERED: hydrOXYzine PAMOATE 25 MG CAPSULE (FP) PO PRN (10:13)
[2019-03-25] MEDS ORDERED: cloNIDine HCL 0.1 MG TABLET PO PRN (10:13)
[2019-03-25] MEDS ORDERED: ALBUTEROL SO4 HFA INHALER IH PRN (10:15)
[2019-03-25] MEDS ORDERED: BUDESONIDE/FORMETEROL FUMARATE 80/4.5 mcg INHALER IH SCH (10:30)
[2019-03-25] MEDS ORDERED: METHADONE HCL 10 MG TABLET (FOR DETOX USE ONLY) PO ONE (10:46)
[2019-03-25] MEDS: metoPROLOL SUCCINATE 25 MG TAB.SR.24H (FP) PO SCH ×2 (11:26→22:17)
[2019-03-25] MEDS: FUROSEMIDE 20 MG TABLET (FP) PO SCH (11:26)
[2019-03-25] MEDS: ASPIRIN 81 MG CHEWABLE TABLETS PO SCH (11:26)
[2019-03-25] MEDS: chlordiazePOXIDE HCL 25 MG CAPSULE PO SCH ×3 (11:27→22:17)
[2019-03-25] MEDS: LISINOPRIL 5 MG TABLET (FP) PO SCH (11:27)
[2019-03-25 15:12] LABS: HEMATOCRIT 32.5 % (32.4-45.2); HEMOGLOBIN 10.7 GM/dL (10.7-15.3); MCH 32.2 pg (25.7-33.7); MCHC 33.1 g/dl (32.0-36.0); MEAN CELL VOLUME 97.4 fl (80-96); MEAN PLT VOLUME 9.6 fl (7.5-11.1); PLATELET COUNT 194 K/MM3 (134-434); RBC 3.33 M/mm3 (3.60-5.2); RDW 15.7 % (11.6-15.6); WHITE BLOOD COUNT 3.4 K/mm3 (4.0-10.0)
[2019-03-25 15:32] LABS: ALBUMIN 3.3 g/dl (3.4-5.0); BILIRUBIN,TOTAL 0.5 mg/dL (0.2-1); BLOOD UREA NITROGEN 23.4 mg/dL (7-18); CALCIUM 8.6 mg/dL (8.5-10.1); CREATININE 1.2 mg/dL (0.55-1.3); POTASSIUM 4.4 mmol/L (3.5-5.1); TOT PROT 6.6 g/dl (6.4-8.2)
[2019-03-25] MEDS: ATORVASTATIN CA 80 MG TABLET (FP) PO SCH (22:17)
[2019-03-25] MEDS: BUDESONIDE/FORMETEROL FUMARATE 80/4.5 mcg INHALER IH SCH (22:17)
[2019-03-25] MEDS: THIAMINE HCL 100 MG TABLET (FP) PO SCH (22:17)
[2019-03-26] MEDS: chlordiazePOXIDE HCL 25 MG CAPSULE PO SCH ×4 (06:18→22:12)
--- NOTE | 2019-03-26 09:38 | PN ---
S CIWA - CIWA Score Nausea/Vomitin Muscle Tremors: 2 Anxiety: 3 Agitation: 0-Normal Activity Paroxysmal Sweats: 2 Orientation: 1-Uncertain about Date Tacttile Disturbances: 2-Mild Itch/Numbness/Burn Auditory Disturbances: 0-None Visual Disturbances: 2-Mild Sensitivity Headache: 0-None Present CIWA-Ar Total Score: 14 S COWS - Scale Resting Pulse: 0= [place] 80 or Below Sweatin= Chills/Flushing Restless Observation: 1= Difficult to Sit Still Pupil Size: 0= Normal to Room Light Bone or Joint Aches: 1= Mild Discomfort Runny Nose/ Eye Tearin= Runny Nose/Eyes GI Upset > 30mins: 2= Nausea/Diarrhea Tremor Observation of Outstretched Hands: 1= Tremor [place], Not Seen Yawning Observation: 2= >3x During Session Anxiety or Irritability: 1=Feels Anxious/Irritable Goose Flesh Skin: 0=Smooth Skin COWS Score: 11 S Progress Note (SOAP) Subjective: Patient is a 53 yo female with hx of alcohol and opioid dependence on methadone and c/o of fatigue, interrupted sleep and chills. Denies SOB or chest pain. Objective: 03/26/19 09:38 Vital Signs Temperature 98.0 F 03/26/19 09:26 Pulse Rate 64 03/26/19 09:26 Respiratory Rate 16 03/26/19 09:26 Blood Pressure 116/71 03/26/19 09:26 O2 Sat by Pulse Oximetry (%) Laboratory Last Values WBC 3.4 K/mm3 (4.0-10.0) L 03/25/19 10:25 RBC 3.33 M/mm3 (3.60-5.2) L 03/25/19 10:25 Hgb 10.7 GM/dL (10.7-15.3) 03/25/19 10:25 Hct 32.5 % (32.4-45.2) 03/25/19 10:25 MCV 97.4 fl (80-96) H 03/25/19 10:25 MCH 32.2 pg (25.7-33.7) 03/25/19 10:25 MCHC 33.1 g/dl (32.0-36.0) 03/25/19 10:25 RDW 15.7 % (11.6-15.6) H 03/25/19 10:25 Plt Count 194 K/MM3 (134-434) 03/25/19 10:25 MPV 9.6 fl (7.5-11.1) 03/25/19 10:25 Sodium 141 mmol/L (136-145) 03/25/19 10:25 Potassium 4.4 mmol/L (3.5-5.1) 03/25/19 10:25 Chloride 112 mmol/L (98-107) H 03/25/19 10:25 Carbon Dioxide 24 mmol/L (21-32) 03/25/19 10:25 Anion Gap 5 MMOL/L (8-16) L 03/25/19 10:25 BUN 23.4 mg/dL (7-18) H 03/25/19 10:25 Creatinine 1.2 mg/dL (0.55-1.3) 03/25/19 10:25 Est GFR (CKD-EPI)AfAm 60.60 03/25/19 10:25 Est GFR (CKD-EPI)NonAf 52.28 03/25/19 10:25 Random Glucose 107 mg/dL (74-106) H 03/25/19 10:25 Calcium 8.6 mg/dL (8.5-10.1) 03/25/19 10:25 Total Bilirubin 0.5 mg/dL (0.2-1) 03/25/19 10:25 AST 38 U/L (15-37) H 03/25/19 10:25 ALT 37 U/L (13-61) 03/25/19 10:25 Alkaline Phosphatase 119 U/L (45-117) H 03/25/19 10:25 Total Protein 6.6 g/dl (6.4-8.2) 03/25/19 10:25 Albumin 3.3 g/dl (3.4-5.0) L 03/25/19 10:25 HIV 1&2 Antibody Screen Negative 03/25/19 10:30 HIV P24 Antigen Negative 03/25/19 10:30 Assessment: 03/26/19 13:05 Patient Aox3 no acute distress EENT WNL Full ROM ambulating in the unit withdrawal sx Plan: Repeat CMP continue detox continue to monitor
[2019-03-26] MEDS ORDERED: METHADONE HCL 5 MG TABLET (FOR DETOX USE ONLY) PO ONE (10:00)
[2019-03-26] MEDS: PRENATAL VITAMINS W/ FOLIC ACID TABLET (FP) PO SCH (10:22)
[2019-03-26] MEDS: BUDESONIDE/FORMETEROL FUMARATE 80/4.5 mcg INHALER IH SCH ×2 (10:22→22:13)
[2019-03-26] MEDS: metoPROLOL SUCCINATE 25 MG TAB.SR.24H (FP) PO SCH ×2 (10:23→22:12)
[2019-03-26] MEDS: ASPIRIN 81 MG CHEWABLE TABLETS PO SCH (10:24)
[2019-03-26] MEDS: LISINOPRIL 5 MG TABLET (FP) PO SCH (10:24)
[2019-03-26] MEDS: FUROSEMIDE 20 MG TABLET (FP) PO SCH (10:24)
--- NOTE | 2019-03-26 15:15 | EKG ---
Test Reason : Blood Pressure : / mmHG Vent. Rate : 083 BPM Atrial Rate : 083 BPM P-R Int : 186 ms QRS Dur : 082 ms QT Int : 398 ms P-R-T Axes : 058 024 066 degrees QTc Int : 467 ms NORMAL SINUS RHYTHM POSSIBLE LEFT ATRIAL ENLARGEMENT LEFT VENTRICULAR HYPERTROPHY T WAVE ABNORMALITY, CONSIDER LATERAL ISCHEMIA PROLONGED QT ABNORMAL ECG WHEN COMPARED WITH ECG OF 25-MAR-2019 02:28, NO SIGNIFICANT CHANGE WAS FOUND Confirmed by GORDO GARCIA MD ([id number]) on 03/26/2019 3:15:15 PM Referred By: Confirmed By:GORDO GARCIA MD
[2019-03-26 15:18] LABS: ALBUMIN 3.2 g/dl (3.4-5.0); BILIRUBIN,TOTAL 0.2 mg/dL (0.2-1); BLOOD UREA NITROGEN 32.4 mg/dL (7-18); CALCIUM 8.7 mg/dL (8.5-10.1); CREATININE 1.2 mg/dL (0.55-1.3); POTASSIUM 4.5 mmol/L (3.5-5.1); TOT PROT 6.4 g/dl (6.4-8.2)
[2019-03-26] MEDS: NICOTINE POLACRILEX 2 MG GUM BUC PRN ×2 (16:40→20:27)
[2019-03-26] MEDS: ATORVASTATIN CA 80 MG TABLET (FP) PO SCH (22:12)
[2019-03-26] MEDS: THIAMINE HCL 100 MG TABLET (FP) PO SCH (22:13)
[2019-03-27] MEDS: chlordiazePOXIDE HCL 25 MG CAPSULE PO SCH ×4 (05:50→22:22)
[2019-03-27] MEDS ORDERED: METHADONE HCL 10 MG TABLET (FOR DETOX USE ONLY) PO ONE (10:00)
[2019-03-27] MEDS: metoPROLOL SUCCINATE 25 MG TAB.SR.24H (FP) PO SCH ×2 (10:15→22:20)
[2019-03-27] MEDS: LISINOPRIL 5 MG TABLET (FP) PO SCH (10:15)
[2019-03-27] MEDS: ASPIRIN 81 MG CHEWABLE TABLETS PO SCH (10:15)
[2019-03-27] MEDS: BUDESONIDE/FORMETEROL FUMARATE 80/4.5 mcg INHALER IH SCH ×2 (10:15→22:19)
[2019-03-27] MEDS: FUROSEMIDE 20 MG TABLET (FP) PO SCH (10:16)
[2019-03-27] MEDS: PRENATAL VITAMINS W/ FOLIC ACID TABLET (FP) PO SCH (10:16)
--- NOTE | 2019-03-27 12:33 | PN ---
[facility] CIWA - CIWA Score Nausea/Vomitin-No Nausea/No Vomiting Muscle Tremors: 2 Anxiety: 2 Agitation: 1-Slight > Activity Paroxysmal Sweats: 1-Minimal Palms Moist Orientation: 0-Oriented Tacttile Disturbances: 0-None Auditory Disturbances: 0-None Visual Disturbances: 2-Mild Sensitivity Headache: 1-Very Mild CIWA-Ar Total Score: 9 BHS COWS - Scale Resting Pulse: 0= [place] 80 or Below Sweatin= Chills/Flushing Restless Observation: 1= Difficult to Sit Still Pupil Size: 0= Normal to Room Light Bone or Joint Aches: 1= Mild Discomfort Runny Nose/ Eye Tearin= Runny Nose/Eyes GI Upset > 30mins: 0= None Tremor Observation of Outstretched Hands: 1= Tremor [place], Not Seen Yawning Observation: 2= >3x During Session Anxiety or Irritability: 1=Feels Anxious/Irritable Goose Flesh Skin: 0=Smooth Skin COWS Score: 9 S Progress Note (SOAP) Subjective: Patient is a 53 yo female with hx of alcohol and opioid dependence on methadone and c/o of fatigue, interrupted sleep, diarrhea, body aches. Objective: 03/27/19 12:33 Vital Signs Temperature 98.9 F 03/27/19 09:10 Pulse Rate 68 03/27/19 09:10 Respiratory Rate 16 03/27/19 09:10 Blood Pressure 123/84 03/27/19 09:10 O2 Sat by Pulse Oximetry (%) Laboratory Last Values WBC 3.4 K/mm3 (4.0-10.0) L 03/25/19 10:25 RBC 3.33 M/mm3 (3.60-5.2) L 03/25/19 10:25 Hgb 10.7 GM/dL (10.7-15.3) 03/25/19 10:25 Hct 32.5 % (32.4-45.2) 03/25/19 10:25 MCV 97.4 fl (80-96) H 03/25/19 10:25 MCH 32.2 pg (25.7-33.7) 03/25/19 10:25 MCHC 33.1 g/dl (32.0-36.0) 03/25/19 10:25 RDW 15.7 % (11.6-15.6) H 03/25/19 10:25 Plt Count 194 K/MM3 (134-434) 03/25/19 10:25 MPV 9.6 fl (7.5-11.1) 03/25/19 10:25 Sodium 140 mmol/L (136-145) 03/26/19 10:34 Potassium 4.5 mmol/L (3.5-5.1) 03/26/19 10:34 Chloride 110 mmol/L (98-107) H 03/26/19 10:34 Carbon Dioxide 25 mmol/L (21-32) 03/26/19 10:34 Anion Gap 5 MMOL/L (8-16) L 03/26/19 10:34 BUN 32.4 mg/dL (7-18) H 03/26/19 10:34 Creatinine 1.2 mg/dL (0.55-1.3) 03/26/19 10:34 Est GFR (CKD-EPI)AfAm 60.60 03/26/19 10:34 Est GFR (CKD-EPI)NonAf 52.28 03/26/19 10:34 Random Glucose 98 mg/dL (74-106) 03/26/19 10:34 Calcium 8.7 mg/dL (8.5-10.1) 03/26/19 10:34 Total Bilirubin 0.2 mg/dL (0.2-1) 03/26/19 10:34 AST 24 U/L (15-37) 03/26/19 10:34 ALT 32 U/L (13-61) 03/26/19 10:34 Alkaline Phosphatase 123 U/L (45-117) H 03/26/19 10:34 Total Protein 6.4 g/dl (6.4-8.2) 03/26/19 10:34 Albumin 3.2 g/dl (3.4-5.0) L 03/26/19 10:34 RPR Titer Nonreactive (NONREACTIVE) 03/25/19 10:25 HIV 1&2 Antibody Screen Negative 03/25/19 10:30 HIV P24 Antigen Negative 03/25/19 10:30 Assessment: 03/27/19 15:27 Patient is Aox3 no acute distress EENT WNL Full ROM no gait disturbance withdrawal sx Plan: increase fluids continue to detox continue to monitor
[2019-03-27] MEDS: NICOTINE POLACRILEX 2 MG GUM BUC PRN ×2 (14:14→16:38)
[2019-03-27] MEDS: THIAMINE HCL 100 MG TABLET (FP) PO SCH (22:20)
[2019-03-27] MEDS: ATORVASTATIN CA 80 MG TABLET (FP) PO SCH (22:20)
[2019-03-28] MEDS ORDERED: chlordiazePOXIDE HCL 10 MG CAPSULE PO PRN
[2019-03-28] MEDS: chlordiazePOXIDE HCL 10 MG CAPSULE PO SCH ×4 (05:49→22:35)
[2019-03-28] MEDS ORDERED: METHADONE HCL 5 MG TABLET (FOR DETOX USE ONLY) PO ONE (06:00)
[2019-03-28] MEDS: NICOTINE POLACRILEX 2 MG GUM BUC PRN ×2 (09:18→17:08)
[2019-03-28] MEDS: BUDESONIDE/FORMETEROL FUMARATE 80/4.5 mcg INHALER IH SCH ×2 (10:27→22:34)
[2019-03-28] MEDS: ASPIRIN 81 MG CHEWABLE TABLETS PO SCH (10:27)
[2019-03-28] MEDS: FUROSEMIDE 20 MG TABLET (FP) PO SCH (10:27)
[2019-03-28] MEDS: PRENATAL VITAMINS W/ FOLIC ACID TABLET (FP) PO SCH (10:27)
[2019-03-28] MEDS: LISINOPRIL 5 MG TABLET (FP) PO SCH (10:27)
[2019-03-28] MEDS: metoPROLOL SUCCINATE 25 MG TAB.SR.24H (FP) PO SCH ×2 (10:27→22:34)
[2019-03-28 11:32] LABS: BILIRUBIN,TOTAL 0.4 mg/dL (0.2-1); BLOOD UREA NITROGEN 42.3 mg/dL (7-18); CALCIUM 9.2 mg/dL (8.5-10.1); CREATININE 1.3 mg/dL (0.55-1.3); POTASSIUM 4.4 mmol/L (3.5-5.1); TOT PROT 6.4 g/dl (6.4-8.2)
--- NOTE | 2019-03-28 13:04 | PN ---
[facility] CIWA - CIWA Score Nausea/Vomitin-No Nausea/No Vomiting Muscle Tremors: None Anxiety: 3 Agitation: 0-Normal Activity Paroxysmal Sweats: 3 Orientation: 0-Oriented Tacttile Disturbances: 0-None Auditory Disturbances: 0-None Visual Disturbances: 0-None Headache: 2-Mild CIWA-Ar Total Score: 8 S COWS - Scale Resting Pulse: 0= [place] 80 or Below Sweatin= Chills/Flushing Restless Observation: 1= Difficult to Sit Still Pupil Size: 0= Normal to Room Light Bone or Joint Aches: 2= Severe Diffuse Aches Runny Nose/ Eye Tearin= None GI Upset > 30mins: 0= None Tremor Observation of Outstretched Hands: 0= None Yawning Observation: 0= None Anxiety or Irritability: 2=Irritable/Anxious Goose Flesh Skin: 0=Smooth Skin COWS Score: 6 S Progress Note (SOAP) Subjective: c/o anxiety, sweats, headache, and muscle aches. Objective: 03/28/19 13:06 Vital Signs 03/28/19 03/28/19 06:29 09:09 Temperature 96.6 F L 96.7 F L Pulse Rate 65 74 Respiratory 18 18 Rate Blood Pressure 123/87 124/81 Laboratory Last Values WBC 3.4 K/mm3 (4.0-10.0) L 03/25/19 10:25 RBC 3.33 M/mm3 (3.60-5.2) L 03/25/19 10:25 Hgb 10.7 GM/dL (10.7-15.3) 03/25/19 10:25 Hct 32.5 % (32.4-45.2) 03/25/19 10:25 MCV 97.4 fl (80-96) H 03/25/19 10:25 MCH 32.2 pg (25.7-33.7) 03/25/19 10:25 MCHC 33.1 g/dl (32.0-36.0) 03/25/19 10:25 RDW 15.7 % (11.6-15.6) H 03/25/19 10:25 Plt Count 194 K/MM3 (134-434) 03/25/19 10:25 MPV 9.6 fl (7.5-11.1) 03/25/19 10:25 Sodium 140 mmol/L (136-145) 03/28/19 08:00 Potassium 4.4 mmol/L (3.5-5.1) 03/28/19 08:00 Chloride 107 mmol/L (98-107) 03/28/19 08:00 Carbon Dioxide 26 mmol/L (21-32) 03/28/19 08:00 Anion Gap 7 MMOL/L (8-16) L 03/28/19 08:00 BUN 42.3 mg/dL (7-18) H 03/28/19 08:00 Creatinine 1.3 mg/dL (0.55-1.3) 03/28/19 08:00 Est GFR (CKD-EPI)AfAm 55.01 03/28/19 08:00 Est GFR (CKD-EPI)NonAf 47.46 03/28/19 08:00 Random Glucose 83 mg/dL (74-106) 03/28/19 08:00 Calcium 9.2 mg/dL (8.5-10.1) 03/28/19 08:00 Total Bilirubin 0.4 mg/dL (0.2-1) 03/28/19 08:00 AST 14 U/L (15-37) L 03/28/19 08:00 ALT 23 U/L (13-61) 03/28/19 08:00 Alkaline Phosphatase 102 U/L (45-117) 03/28/19 08:00 Total Protein 6.4 g/dl (6.4-8.2) 03/28/19 08:00 Albumin 3.0 g/dl (3.4-5.0) L 03/28/19 08:00 RPR Titer Nonreactive (NONREACTIVE) 03/25/19 10:25 HIV 1&2 Antibody Screen Negative 03/25/19 10:30 HIV P24 Antigen Negative 03/25/19 10:30 Labs noted. Assessment: 03/28/19 13:06 AOX3, in no acute respiratory distress. Full ROM, ambulating in the unit. Withdrawal symptoms. Plan: continue detox.
[2019-03-28] MEDS: ATORVASTATIN CA 80 MG TABLET (FP) PO SCH (22:34)
[2019-03-28] MEDS: THIAMINE HCL 100 MG TABLET (FP) PO SCH (22:35)
[2019-03-29] MEDS ORDERED: chlordiazePOXIDE HCL 10 MG CAPSULE PO SCH (05:00)
[2019-03-29 09:21] VITALS: BP 122/75; PULSE 66; TEMP 98.6
--- NOTE | 2019-03-29 13:20 | DS ---
[facility] Detox Discharge Summary Admission Date: 03/25/19 Discharge Date: 03/29/19 - History Present History: Alcohol Dependence, Opioid Dependence Additional Comments: 53 years old female admitted on 03/25/19 for alcohol and opiate withdrawal sx management treated with librium and methadone detox regimen ekg indicated left atrial enlargement and left ventrical hypertrophy respiratory clear lungs bilaterally on auscultation abdomen soft flat no rebound tenderness skin warm and dry Pertinent Past History: patient is alert oriented x 3 speech clearly coherently ambulating stead gait patient prefers to leave one day early as per estimated discharge date of case discussed with the nurse routine discharge is appropriated - Physical Exam Results Vital Signs: Vital Signs Temperature 98.6 F 03/29/19 09:20 Pulse Rate 66 03/29/19 09:20 Respiratory Rate 18 03/29/19 09:20 Blood Pressure 122/75 03/29/19 09:20 O2 Sat by Pulse Oximetry (%) Pertinent Admission Physical Exam Findings: alcohol and opiate withdrawal Laboratory Last Values WBC 3.4 K/mm3 (4.0-10.0) L 03/25/19 10:25 RBC 3.33 M/mm3 (3.60-5.2) L 03/25/19 10:25 Hgb 10.7 GM/dL (10.7-15.3) 03/25/19 10:25 Hct 32.5 % (32.4-45.2) 03/25/19 10:25 MCV 97.4 fl (80-96) H 03/25/19 10:25 MCH 32.2 pg (25.7-33.7) 03/25/19 10:25 MCHC 33.1 g/dl (32.0-36.0) 03/25/19 10:25 RDW 15.7 % (11.6-15.6) H 03/25/19 10:25 Plt Count 194 K/MM3 (134-434) 03/25/19 10:25 MPV 9.6 fl (7.5-11.1) 03/25/19 10:25 Sodium 140 mmol/L (136-145) 03/28/19 08:00 Potassium 4.4 mmol/L (3.5-5.1) 03/28/19 08:00 Chloride 107 mmol/L (98-107) 03/28/19 08:00 Carbon Dioxide 26 mmol/L (21-32) 03/28/19 08:00 Anion Gap 7 MMOL/L (8-16) L 03/28/19 08:00 BUN 42.3 mg/dL (7-18) H 03/28/19 08:00 Creatinine 1.3 mg/dL (0.55-1.3) 03/28/19 08:00 Est GFR (CKD-EPI)AfAm 55.01 03/28/19 08:00 Est GFR (CKD-EPI)NonAf 47.46 03/28/19 08:00 Random Glucose 83 mg/dL (74-106) 03/28/19 08:00 Calcium 9.2 mg/dL (8.5-10.1) 03/28/19 08:00 Total Bilirubin 0.4 mg/dL (0.2-1) 03/28/19 08:00 AST 14 U/L (15-37) L 03/28/19 08:00 ALT 23 U/L (13-61) 03/28/19 08:00 Alkaline Phosphatase 102 U/L (45-117) 03/28/19 08:00 Total Protein 6.4 g/dl (6.4-8.2) 03/28/19 08:00 Albumin 3.0 g/dl (3.4-5.0) L 03/28/19 08:00 RPR Titer Nonreactive (NONREACTIVE) 03/25/19 10:25 HIV 1&2 Antibody Screen Negative 03/25/19 10:30 HIV P24 Antigen Negative 03/25/19 10:30 lab noted - Treatment Hospital Course: Detox Protocol Followed, Detoxed Safely, Responded well, Discharged Condition Good, Rehab Referral Accepted Patient has Accepted [facility] Referral [facility] - Medication Discharge Medications: Ambulatory Orders Aspirin 81 mg PO DAILY 06/27/18 Albuterol Sulfate Inhaler - [Ventolin HFA Inhaler -] 2 inh PO Q4H PRN #1 inhaler 07/01/18 Budesonide/Formeterol Fumarate [SYMBICORT 80/4.5mcg -] 12 puff IH BID #1 inhaler 07/01/18 Lisinopril 5 mg PO DAILY #30 tablet 07/01/18 Metoprolol Succinate 25 mg PO BID #60 tab.er.24h 07/01/18 Furosemide [Lasix -] 20 mg PO DAILY #30 tablet 11/18/18 Atorvastatin Calcium 80 mg PO HS 03/24/19 Carvedilol 6.25 mg PO DAILY 03/24/19 Folic Acid 1 tablet PO DAILY 03/24/19 Nifedipine ER [Procardia XL -] 1 tablet PO DAILY 03/24/19 Thiamine HCl [B-1] 100 mg PO DAILY 03/24/19 - Diagnosis (1) Alcohol dependence with uncomplicated withdrawal Status: Acute (2) Opiate withdrawal Status: Acute (3) Asthma Status: Chronic Qualifiers: Asthma severity: mild Asthma persistence: intermittent Asthma complication type: with status asthmaticus Qualified Code(s): J45.22 - Mild intermittent asthma with status asthmaticus (4) CAD (coronary artery disease) Status: Chronic Qualifiers: Coronary Disease-Associated Artery/Lesion type: unspecified vessel or lesion type [place] vs. transplanted heart: unspecified whether [place] or transplanted heart Associated angina: with unspecified angina Qualified Code (s): I25.119 - Atherosclerotic heart disease of [place] coronary artery with unspecified angina pectoris (5) CHF (congestive heart failure) Status: Chronic Qualifiers: Heart failure type: unspecified Heart failure chronicity: unspecified Qualified Code(s): I50.9 - Heart failure, unspecified (6) COPD (chronic obstructive pulmonary disease) Status: Chronic Qualifiers: COPD type: emphysema Emphysema type: unilateral Qualified Code(s): J43.0 - Unilateral pulmonary emphysema [MacLeod's syndrome] (7) Cardiac arrhythmia Status: Chronic Qualifiers: Arrhythmia type: paroxysmal tachycardia, unspecified Qualified Code(s): I47.9 - Paroxysmal tachycardia, unspecified; I47 - Paroxysmal tachycardia (8) HLD (hyperlipidemia) Status: Chronic Qualifiers: Hyperlipidemia type: pure hypertriglyceridemia Qualified Code(s): E78.1 - Pure hyperglyceridemia (9) HTN (hypertension) Status: Chronic Qualifiers: Hypertension type: essential hypertension Qualified Code(s): I10 - Essential (primary) hypertension (10) ICD (implantable cardioverter-defibrillator) in place Status: Chronic (11) Nicotine dependence Status: Acute Qualifiers: Nicotine product type: cigarettes Substance use status: in withdrawal Qualified Code(s): F17.213 - Nicotine dependence, cigarettes, with withdrawal (12) Substance induced mood disorder Status: Suspected - AMA Did Patient Leave Against Medical Advice: No CIWA Score - CIWA Score Nausea/Vomitin-No Nausea/No Vomiting Muscle Tremors: None Anxiety: 2 Agitation: 0-Normal Activity Paroxysmal Sweats: 2 Orientation: 0-Oriented Tacttile Disturbances: 0-None Auditory Disturbances: 0-None Visual Disturbances: 0-None Headache: 1-Very Mild CIWA-Ar Total Score: 5 COWS (PN) - Opiate Withdrawal Resting Pulse: 0= [place] 80 or Below Sweatin= Chills/Flushing Restless Observation: 0= Sits Still Pupil Size: 0= Normal to Room Light Bone or Joint Aches: 0= None Runny Nose/ Eye Tearin= None GI Upset > 30mins: 1= Stomach Cramp Tremor Observation of Outstretched Hands: 2= Slight Tremor Visible Yawning Observation: 0= None Anxiety or Irritability: 1=Feels Anxious/Irritable Goose Flesh Skin: 0=Smooth Skin COWS Score: 5
[2019-03-30] MEDS ORDERED: chlordiazePOXIDE HCL 10 MG CAPSULE PO ONE (05:00)
== END 2019-03-29 09:48 | disposition home or self-care (01) | DRG 773 ==
LOC: YASAS 09:23 → Y3N 10:28
PROVIDERS: ADMIT Allergy & Immunology; ATTEND Allergy & Immunology
PROC: HZ2ZZZZ Detoxification Services for Substance Abuse Treatment (ICD-10-PCS; principal; 2019-03-25)
DX: F11.23 Opioid dependence with withdrawal (principal); F10.230 Alcohol dependence with withdrawal, uncomplicated; F14.20 Cocaine dependence, uncomplicated; F17.210 Nicotine dependence, cigarettes, uncomplicated; F19.24 Other psychoactive substance dependence with psychoactive substance-induced mood disorder; I11.0 Hypertensive heart disease with heart failure; I25.10 Atherosclerotic heart disease of native coronary artery without angina pectoris; I50.9 Heart failure, unspecified; I47.9 Paroxysmal tachycardia, unspecified; I25.2 Old myocardial infarction; J43.0 Unilateral pulmonary emphysema [MacLeod's syndrome]; J45.22 Mild intermittent asthma with status asthmaticus; R01.1 Cardiac murmur, unspecified; Z95.810 Presence of automatic (implantable) cardiac defibrillator; Z88.0 Allergy status to penicillin
CPT/HCPCS: 36415; 80053; 85027; 86593; 87389; 93005; 93010; J0735